=== PATIENT | male | born 1960 | race Caucasian/White ===

== ENCOUNTER → 2020-01-29 09:21 | Outpatient (BNVA) | payer MEDICAID, SELFPAY | PROVIDERS: PCP Internal Medicine; Referring Provider Internal Medicine; Visit Provider Urology | DX: Z76.89 Persons encountering health services in other specified circumstances (principal) | CPT/HCPCS: 99212 ==

== ENCOUNTER → 2020-04-08 13:15 | Outpatient (BNVA) | payer MEDICAID, SELFPAY | PROVIDERS: PCP Internal Medicine; Visit Provider Nurse Practitioner Family ==

== ENCOUNTER 2020-05-24 09:06 | Day surgery (SDC) | payer MEDICAID, SELFPAY ==
[2020-05-19 09:14] VITALS: BMI 28.2
[2020-05-24 09:31] VITALS: BP 107/61; PULSE 56; RESP 18; TEMP 36.6; O2SAT 97
--- NOTE | 2020-05-24 09:34 | P.CONAN_ITS ---
[facility] Active Problems Active Problems: All Active Problems (Updated 05/19/20 @ 09:12 by Fany mcintosh) Prostate cancer (Acute) BPH w urinary obs/LUTS (Acute) Erectile dysfunction due to arterial insufficiency (Acute) Past Medical History Medical History BPH (benign prostatic hyperplasia) Elevated cholesterol Erectile dysfunction Family History Family History Mother Advancing dementia Social History Social History Household Members: Spouse Alcohol intake: current Alcohol intake frequency: a few times a month Alcohol type: beer Smoking Status: Never smoker Use of substances other than those prescribed or required for medical reasons: No Advance Directives: No Advance Directives Information Provided: No Advance Directives on File: No Meds Allergies Allergy/AdvReac Type Severity Reaction Status Date / Time No Known Allergies Allergy Verified 05/19/20 09:13 [No Known Allergies*] Active Medications: Current Medications Generic Name Dose Route Start Last Admin Trade Name Kaliq PRN Reason Stop Dose Admin Lactated Ringer's 1,000 mls @ 50 mls/hr 05/24/20 07:30 Lr IV .Q20H [facility] Home Medications Medication Instructions Recorded Confirmed Last Taken Type simvastatin 40 mg tablet 40 mg PO BEDTIME 04/08/20 05/19/20 Unknown History tadalafil 5 mg PO DAILY PRN 05/19/20 05/19/20 Unknown History Exam Exam Date and Time: May 24, 2020 0934 Height,Weight and Vital Signs: Height 5 ft 6 in Weight 79.379 kg Airway Mallampati Class: II TM Dist: >3cm Neck ROM: Full Loose/Missing/Broken Teeth: No Heart: RRR Lungs: CTA Assessment and Plan Assessment Anesthesia Assessment: Anesthesia Plan Discussed and Chart Reviewed Final Anesthetic Review NPO: Yes ASA Class: II Final Preanesthetic Review: Meds/Allgs Chart Reviewed, Consent Obtained/Reviewed and Anes Risks/Benef Reviewed Patient Risk: Low Procedure Risk: Low Anesthetic Plan Anesthetic Plan: MAC: Disposition: Standard PACU
--- NOTE | 2020-05-24 09:35 | MHC.SHP ---
Pre-Procedural Eval Section B Chief Complaint: Screening Relevant Family History (Specify if Yes): No Relevant Social History: None Present Medications: see Short Stay Collaborative assessment Medical History: Significant History (prostate cancer) History of Previous Operations: Relevant previous surgery/procedure and date(s) (prostate surgery) Allergies: Allergies Allergy/AdvReac Type Severity Reaction Status Date / Time No Known Allergies Allergy Verified 05/19/20 09:13 [No Known Allergies*] Review of Systems Sugical H&P ROS: Negative: Constitution, Cardiovascular, Respiratory, Neurological, Psychiatric, Hem-Onc, Allergic/Immunologic, Gastrointestinal, Genitourinary, Musculoskeletal, Integumentary, Endocrine and Eyes/Ears/Nose/Throat Exam Surgical H&P Exam: Normal: HEENT, Normal: Heart, Normal: Lungs, Normal: Extremities, Normal: Abdomen and Normal: Neurological and Significant Findings: Skin (vitiligo) Plan Diagnosis/Plan: Unchanged I have reviewed the history and physical and performed a pertinent physical examination on my patient. No changes have occurred unless specified.
--- NOTE | 2020-05-24 09:37 | PM.OP ---
Brief Operative Note Date of Service: 05/24/20 Pre-op diagnosis: colon screening Post-op diagnosis: same Procedure: see op note Surgeon: Micaela Catherine MD Anesthesia: MAC Estimated blood loss (mL): 0 Condition: stable Disposition: PACU
--- NOTE | 2020-05-24 09:38 | P.OP_ITS ---
Operative Note Operative Note Date of Service: 05/24/20 Narrative: Operative Information Procedure Description: Colonoscopy COLONOSCOPY Instrument: Olympus variable stiffness pediatric scope 190L Colonoscopy Monitoring: Vital signs and clinical assessment, continuous EKG monitoring, Pulse oximetry, Carbon Dioxide monitoring and blood pressure monitoring were done throughout the procedure. Colon withdrawal time was 9 minutes. Procedure: The patient was placed in the left lateral decubitis position and pre-procedure medications were administered. After a digital rectal examination of the ano-rectum, the video colonoscope was inserted into the rectum and advanced through the colon to the cecum/TI. The colonoscope was slowly withdrawn in a retrograde panoramic fashion and the colon mucosa was carefully examined including a retroflexed view of the rectum. Findings and interventions are described below. Procedure Difficulty:easy Findings: Terminal Ileum-normal Cecum:normal Ascending Colon: normal Transverse Colon -normal Descending Colon:normal Sigmoid Colon: normal Rectum: Retroflexion with moderate sized internal hemorrhoids, grade I Anorectum - normal Colon preparation: Blevins Bowel Preparation Scale Right colon; 1 Transverse colon: 2 Left colon; 1 (0 = Unprepared colon segment with mucosa not seen due to solid stool that cannot be cleared. 1 = Portion of mucosa of the colon segment seen, but other areas of the colon segment not well seen due to staining, residual stool and/or opaque liquid. 2 = Minor amount of residual staining, small fragments of stool and/or opaque liquid, but mucosa of colon segment seen well. 3 = Entire mucosa of colon segment seen well with no residual staining, small fragments of stool or opaque liquid) Impression and Post Procedure Diagnosis: internal hemorrhoids Plan: High fiber diet leaflet Avoid straining at stool, epsom salts and sitz bath, anusol supps or cream Repeat Colonoscopy in 1-2 years due to prep or earlier if clinically indicated- next time stress compliance with prep and diet instructions Above findings were reviewed with the patient and relevant handouts were provided if indicated.
[2020-05-24] MEDS: Lactated Ringers 1,000 ML 50 ML IV (09:41)
[2020-05-24 10:13] VITALS: BP 98/60; PULSE 67; RESP 16; TEMP 36.1; O2SAT 96
[2020-05-24 10:28] VITALS: BP 108/74; PULSE 60; RESP 18; O2SAT 98
[2020-05-24 10:43] VITALS: BP 111/76; PULSE 67; RESP 18; TEMP 36.1; O2SAT 100
== END 2020-05-24 11:32 | disposition home or self-care (01) ==
PROVIDERS: Visit Provider Internal Medicine Gastroenterology
PROC: 0DJD8ZZ Inspection of Lower Intestinal Tract, Via Natural or Artificial Opening Endoscopic (ICD-10-PCS; CPT 45378; principal; 2020-05-24 10:50)
DX: Z12.11 Encounter for screening for malignant neoplasm of colon (principal); K64.0 First degree hemorrhoids; C61 Malignant neoplasm of prostate; Z79.899 Other long term (current) drug therapy
CPT/HCPCS: 45378

== ENCOUNTER → 2020-05-31 14:42 | Outpatient (BNVA) | payer MEDICAID, SELFPAY | PROVIDERS: Visit Provider Nurse Practitioner Family ==

== ENCOUNTER 2020-06-21 07:45 | Outpatient (REF) | payer MEDICAID, SELFPAY | END 2020-06-21 07:46 | disposition home or self-care (01) | LOC: HO.LAB 07:45 | PROVIDERS: Visit Provider Internal Medicine | DX: Z20.822 Contact with and (suspected) exposure to COVID-19 (principal) | CPT/HCPCS: C9803; U0003; U0005 ==

== ENCOUNTER 2020-07-27 08:56 | Outpatient (REF) | payer MEDICAID, SELFPAY ==
[2020-07-27 10:15] LABS: Prostate Specific Antigen 9.94 ng/mL (<0.05-4.0)
== END 2020-07-27 08:57 | disposition home or self-care (01) ==
LOC: HO.LAB 08:56
PROVIDERS: PCP Nurse Practitioner Primary Care; Visit Provider Urology
DX: Z12.5 Encounter for screening for malignant neoplasm of prostate (principal); C61 Malignant neoplasm of prostate
CPT/HCPCS: 36415; 84153

== ENCOUNTER → 2020-07-29 11:31 | Outpatient (BNVA) | payer MEDICAID, SELFPAY | PROVIDERS: Visit Provider Urology | DX: C61 Malignant neoplasm of prostate (principal); N52.01 Erectile dysfunction due to arterial insufficiency; N40.1 Benign prostatic hyperplasia with lower urinary tract symptoms; N13.8 Other obstructive and reflux uropathy | CPT/HCPCS: 99212 ==

== ENCOUNTER 2021-03-09 14:21 | Outpatient (REF) | payer MEDICAID, SELFPAY ==
[2021-03-09 15:42] LABS: COVID-19 Test Negative (Negative)
== END 2021-03-09 14:22 | disposition home or self-care (01) ==
LOC: HO.LAB 14:21
PROVIDERS: Visit Provider Internal Medicine
DX: Z20.822 Contact with and (suspected) exposure to COVID-19 (principal)
CPT/HCPCS: 87635; C9803

== ENCOUNTER 2021-03-17 10:10 | Outpatient (REF) | payer MEDICAID, SELFPAY ==
[2021-03-17 10:24] LABS: COVID-19 Test Positive (Negative); IDNOW Serial# 16C4AD1C
== END 2021-03-17 10:11 | disposition home or self-care (01) ==
LOC: HO.LAB 10:10
PROVIDERS: Visit Provider Internal Medicine
DX: Z20.822 Contact with and (suspected) exposure to COVID-19 (principal)
CPT/HCPCS: 87635; C9803

== ENCOUNTER 2021-05-02 16:40 | Outpatient (RCR) | payer MEDICAID, SELFPAY | END 2021-05-17 12:50 | disposition home or self-care (01) | LOC: HO.PT 16:40 | PROVIDERS: PCP Nurse Practitioner Primary Care; Visit Provider Nurse Practitioner Primary Care | DX: M25.511 Pain in right shoulder (principal); M79.605 Pain in left leg; M79.604 Pain in right leg | CPT/HCPCS: 97110; 97161 ==

== ENCOUNTER 2022-07-20 12:19 | Outpatient (REF) | payer MEDICAID, SELFPAY | END 2022-07-20 12:20 | disposition home or self-care (01) | LOC: HO.HOSX 12:19 | PROVIDERS: Visit Provider Orthopaedic Surgery | DX: Z13.89 Encounter for screening for other disorder (principal) ==

== ENCOUNTER 2022-07-27 12:18 | Outpatient (REF) | payer MEDICAID, SELFPAY | END 2022-07-27 12:19 | disposition home or self-care (01) | LOC: HO.HOSX 12:18 | PROVIDERS: Visit Provider Orthopaedic Surgery | DX: Z13.89 Encounter for screening for other disorder (principal) ==

== ENCOUNTER → 2023-02-13 15:50 | Outpatient (AMB) | payer MEDICAID, SELFPAY ==
--- NOTE | 2023-02-13 15:57 | MHC.OFFVIS ---
Intake Vital Signs 02/13/23 15:59 Height 5 ft 6 in Weight 166 lb BMI 26.8 BP 117/71 Blood Pressure Location Lt brachial Position Sitting Pulse 79 Intake Visit Reasons: 1 year follow up Colonoscopy Intake Note: Patient follow up for Pre Colonoscopy screening. Patient cc: hemorrhoids on and off. Denies any other GI issues. [employer] Supervisor Required: No Accompanied by: Self / Same As Patient Allergies No Known Allergies [No Known Allergies*] Allergy (Verified 02/21/23 15:49) HPI 1 year follow up Colonoscopy HPI Details LAST VISIT 05/31/2020 Status post colonoscopy Plan 60-year-old male here today for visit to discuss colonoscopy results. Patient states that he did not finish his prep. He only drank some of the MiraLax. Patient denies having any nausea or any problem with it. ? if he started drinking it too late. Patient denies having any symptoms of constipation, reports to have bowel movements every day and feels like he is emptying fully. I explained to patient that it is very important to have a good prep in order to have a good view of intestinal [place]. Patient is agreeable to repeat colonoscopy in one year. Patient denies any melena, blood in his stools, and additional weight loss or ribbon like stools. He was asked to call our office with any of the symptoms. He verbalizes understanding and is agreeable to plan of care. Patient reports that he does eat a lot of fiber, he stays active and drinks plenty fluids. He was given the opportunity to ask questions all questions answered. (we will do 2 day prep for him) ? TODAY'S VISIT Patient is here today for follow-up and to discuss going for colonoscopy. Patient is overdue to go for colonoscopy. Last colonoscopy in May as mentioned above patient had suboptimal prep. Patient did not finish all of his prep only drink very small amount. Patient reports that he is moving his bowels every day. Denies any melena, hematochezia, unintentional weight loss or ribbon like stools. Denies any issues with anesthesia in the past. No history of sleep apnea. Not on any anticoagulation medication. Patient denies any cardiac or respiratory symptoms. Patient denies any other GI concerning symptoms. Denies dyspepsia, dysphagia or odynophagia. [facility] Medical History Elevated cholesterol Erectile dysfunction BPH (benign prostatic hyperplasia) Surgical History H/O colonoscopy Family History Mother Advancing dementia Social History (Updated 02/21/23 @ 15:50 by LEONID Vásquez) Household Members: Spouse Alcohol intake: current Alcohol intake frequency: a few times a month Alcohol type: beer Patient Tobacco Use Status: Never used Tobacco Review of Systems Const Denies weight gain and Denies weight loss ENT Reports no additional complaints, Denies dysphagia and Denies odynophagia Card Reports no additional complaints Resp Reports no additional complaints GI Denies abdominal pain, Denies belching, Denies melena, Denies bloating, Denies change in bowel habits, Reports constipation, Denies dysphagia, Denies excessive flatus, Denies dyspepsia, Denies heartburn, Denies diarrhea, Denies loose stools, Denies nausea, Denies odynophagia, Denies vomiting and Reports other (Hemorrhoids) Reports no additional complaints Musc Reports no additional complaints Neuro Reports no additional complaints Psych Reports no additional complaints Endo Reports no additional complaints Physical Exam Vital Signs: Last Vital Signs Pulse 79 02/13/23 15:59 BP 117/71 02/13/23 15:59 BMI result Body Mass Index 26.8 Const General: healthy appearing, no acute distress and well developed Nutritional Appearance: well nourished Orientation/consciousness: patient oriented x3 HEENT Head: Yes normal to inspection, Yes normocephalic and Yes atraumatic Face and sinus: Yes normal facial exam Mouth: Normal oral and palatal mucosa present Throat: Yes posterior oropharynx normal, Yes tonsils normal and Yes uvula midline Eyes General: appearance normal, both eyes and all related structures Neck Neck: Yes normal visual inspection, Yes full ROM and Yes trachea midline Thyroid: Thyroid normal Resp Effort & Inspection: normal respiratory effort, able to speak in complete sentences, no tracheal deviation and symmetric chest movement Auscultation: clear to auscultation bilaterally Cardio Rate: regular rate GI Inspection: Yes normal to inspection and No distended Palpation (GI): Soft to palpation, not firm, nontender and No hepatosplenomegaly present Auscultation: normal bowel sounds General: Yes no CVA tenderness Back/Spine/Pelvis Back: no CVA tenderness Skin General skin exam: elasticity normal, turgor normal and dry skin Neuro General: patient oriented x3 Psych Appearance: grossly normal Mental Status: mental status grossly normal Assessment & Plan Assessment & Plan (1) Screen for colon cancer: Code(s): Z12.11 - Encounter for screening for malignant neoplasm of colon (2) Constipation: Code(s): K59.00 - Constipation, unspecified Qualifiers: Constipation type: slow transit constipation Qualified Code(s): K59.01 - Slow transit constipation Plan Will start patient on stool softener. Patient was that sometimes he will have constipation. Patient denies any issues with anesthesia in the past. No history of sleep apnea. Not on any anticoagulation medication. Patient denies any cardiac or respiratory symptoms. Patient will need to do better job prepping and finish all of his prep. The importance of clear liquid diet day before the procedure discussed with patient. Avoid foods high in fiber for 1 week before the procedure. With to expect before during and after the procedure discussed with patient. I will see patient in the office after the procedure, sooner on as needed basis. Patient is agreeable to this plan and verbalizes understanding of instructions. He was given the opportunity to ask questions and all questions answered. Thank you for allowing me to participate in his care Medications: New polyethylene glycol 3350 (Miralax) As directed by gastroenterology department at [facility] 238 grams PO ONCE 238 grams 0RF Z12.11 - Encounter for screening for malignant neoplasm of colon bisacodyl (Dulcolax (bisacodyl)) Start taking 2 tablet every night 7 days before the procedure and 1 day before procedure take 4 tablets at noon time followed by MiraLax prep 10 mg (2 x 5 mg) PO BEDTIME 16 tabs 0RF Z12.11 - Encounter for screening for malignant neoplasm of colon docusate sodium 100 mg PO BEDTIME 90 caps 3RF K59.00 - Constipation, unspecified Discontinued bisacodyl take 2 tabs at noon the day before your colonoscopy Discontinued Reason: Patient no longer taking 10 mg (2 x 5 mg) PO ONCE 1 day 2 tabs 0RF Z12.11 - Encounter for screening for malignant neoplasm of colon Coding Level of Care Code Est Pt Level 3 (75065) Diagnoses Screen for colon cancer Z12.11 Slow transit constipation K59.01 Constipation type: slow transit constipation Time Spent (min) 30 Comment 20 minutes spent with patient and additional 10 minutes spent reviewing his records
[2023-02-13 15:59] VITALS: BP 117/71; PULSE 79; BMI 26.8
== END ==
PROVIDERS: PCP Nurse Practitioner Primary Care; Visit Provider Nurse Practitioner Family
DX: Z12.11 Encounter for screening for malignant neoplasm of colon (principal); K59.01 Slow transit constipation; Z01.818 Encounter for other preprocedural examination
CPT/HCPCS: 99213

== ENCOUNTER → 2023-02-13 15:50 | Outpatient (BNVA) | payer MEDICAID, SELFPAY | PROVIDERS: PCP Nurse Practitioner Primary Care; Visit Provider Nurse Practitioner Family | DX: Z12.11 Encounter for screening for malignant neoplasm of colon (principal); K59.01 Slow transit constipation | CPT/HCPCS: 99212 ==

== ENCOUNTER 2023-02-21 15:24 | Outpatient (AMB) | payer MEDICAID, SELFPAY ==
--- NOTE | 2023-02-21 15:48 | A.OFFVIS_ITS ---
Intake Intake Visit Reasons: prostate cancer C61 Intake Note: NEW Patient presents today to established treatment for Prostate Cancer: Meds- None Allergies to Antibiotic- No Known Allergies Blood Thinner- None Post Void Residual: 55 m Removable Prosthodontist Required: No Accompanied by: Self / Same As Patient Allergies No Known Allergies [No Known Allergies*] Allergy (Verified 02/21/23 15:49) HPI HPI Comments History of Present Illness Details James is here for evaluation for elevated PSA, he was last seen by Dr. Dunham in 2020 and was placed on active surveillance for low volume prostate cancer. The patient states he has not followed up with a Urologist since that time. He had been prescribed proscar and tadalfil, in the past by Dr. Dunham currently no longer taking. Review of chart: Erectile dysfunction Did have some response to tadalafil. Lower urinary tract symptoms Has narrowing of stream Nocturia times 2-3 Will benefit from combination tamsulosin and finasteride Tamsulosin added to finasteride prescription Prostate cancer PSA-- 05/15 --7.1, PSA --08/16 --9.9 Adenocarcinoma of the prostate (T1c N0 M0, Traci score 7, Grade Group 2 , PS A at Diagnosis) NCCN favorable intermediate Prostate cancer was diagnosed Dr Dunham May 2019 Diagnosis was reached by - needle biopsy - , for elevated PSA 7.6 - , size at TRUS. The [place] grade is 3+4 Date: May 2019 12 Core biopsy Positive Biopsies: 4 - 3+4 right base lateral, 3+3 right base medial, right mid medial, right apex medial Negative Biopsies: Traci 4 or 5: < 5% total (%) Positive: 10% total Locations: TNM Classification of Malignant Tumours (TNM) - , T1c The D'[place]irk (NCCN) risk category is - - Favorable Intermediate Risk (PSA 10-20, Gl 7, T2) Group 2 Initial therapy included - active surveillance 02/21/23--Plan: Repeat prostate biopsy. Transrectal Ultrasound guided biopsy of the prostate. Discussed risks to include but not limited to pain, blood in stool, urine and semen, septicemia, need to repeat biopsy. [facility] Medical History (Updated 03/13/23 @ 12:19 by Alyse Starks MD) Elevated cholesterol Erectile dysfunction BPH (benign prostatic hyperplasia) Surgical History H/O knee surgery H/O colonoscopy Family History Mother Advancing dementia Social History Household Members: Spouse Alcohol intake: current Alcohol intake frequency: holidays/special occasions only Alcohol type: beer Patient Tobacco Use Status: Never used Tobacco Use of substances other than those prescribed or required for medical reasons: No Are you DNR?: No Advance Directives: No Advance Directives Information Provided: Yes Review of Systems Const All systems reviewed & are unremarkable except as noted in HPI and below Reports no additional complaints Eyes Reports no additional complaints ENT Denies neck pain Card Denies leg edema Resp Denies cough GI Denies constipation Musc Reports no additional complaints and Denies neck pain Skin/Breast Denies rash and Denies unusual bruising Neuro Reports no additional complaints Psych Reports no additional complaints Endo Reports no additional complaints Joseph/Lymph Reports no additional complaints Aller/Immun Reports no additional complaints Physical Exam Const General: healthy appearing, no acute distress and well developed Orientation/consciousness: patient oriented x3 HEENT Head: Yes normocephalic and Yes atraumatic Eyes Conjunctivae: conjunctivae normal Neck Neck: Yes normal visual inspection Chest Chest palpation & inspection: normal inspection of the chest Resp Effort & Inspection: normal respiratory effort Cardio Rate: regular rate GI Inspection: Yes normal to inspection Palpation (GI): Soft to palpation Other: prostate - smooth enlarged Skin General skin exam: no rashes or lesions noted Neuro General: patient oriented x3 Extrem General: No pedal edema Psych Appearance: grossly normal Affect: normal affect Results AMB Urinalysis, Automated UA Leukoctes 0 Barbara/uL Last Edit by LEONID Vásquez on 02/21/23 16:00 UA Nitrite Negative Last Edit by LEONID Vásquez on 02/21/23 16:00 UA Urobilinogen 0.2 mg/dL Last Edit by LEONID Vásquez on 02/21/23 16:0 0 UA Protein 0 mg/dL Last Edit by VISHAL VásquezA on 02/21/23 16:00 UA pH 6.0 Last Edit by Edmond Ghosh, A on 02/21/23 16:00 UA Blood 0 Missael/uL Last Edit by Edmond Ghosh, A on 02/21/23 16:00 UA Specific Koppel 1.020 Last Edit by Edmond Ghosh, A on 02/21/23 16: 00 UA Ketone Negative Last Edit by Edmond Ghosh, A on 02/21/23 16:00 UA Bilirubin 0 mg/dL Last Edit by Edmond Ghosh A on 02/21/23 16:00 UA Glucose 0 mg/dL Last Edit by Edmond Ghosh A on 02/21/23 16:00 Results Reviewed Results Reviewed: Laboratory Last Values Urine pH (Auto) 6.0 02/21/23 15:59 Specific Koppel (Auto) 1.020 02/21/23 15:59 Urine Protein (Auto) 0 mg/dL 02/21/23 15:59 Glucose (UA)(Auto) 0 mg/dL 02/21/23 15:59 Urine Ketones (Auto) Negative 02/21/23 15:59 Urine Blood (Auto) 0 Missael/uL 02/21/23 15:59 Urine Nitrite (Auto) Negative 02/21/23 15:59 Urine Bilirubin (Auto) 0 mg/dL 02/21/23 15:59 Urine Urobilinogen (Auto) 0.2 mg/dL 02/21/23 15:59 Leukocyte Esterase (Auto) 0 Barbara/uL 02/21/23 15:59 Assessment & Plan Assessment & Plan (1) Prostate cancer: Code(s): C61 - Malignant neoplasm of prostate (2) BPH w urinary obs/LUTS: Code(s): N40.1 - Benign prostatic hyperplasia with lower urinary tract symptoms; N13.8 - Other obstructive and reflux uropathy (3) Elevated PSA: Code(s): R97.20 - Elevated prostate specific antigen [PSA] Plan Plan - prostate biopsy, transrectal US Orders: Orders AMB Urinalysis Automated 02/21/23 Z13.9 - Encounter for screening, unspecified AMB Post Void Residual by ultrasound 02/21/23 N39.8 - Other specified disorders of urinary system Coding Level of Care Code New Pt Level 4 (81939) Diagnoses Prostate cancer C61 BPH w urinary obs/LUTS N40.1; N13.8 Elevated PSA R97.20
== END 2023-02-21 16:23 | disposition home or self-care (01) ==
LOC: HO.HUSH 15:24
PROVIDERS: PCP Nurse Practitioner Primary Care; Visit Provider Urology
DX: C61 Malignant neoplasm of prostate (principal); N40.1 Benign prostatic hyperplasia with lower urinary tract symptoms; N13.8 Other obstructive and reflux uropathy; R97.20 Elevated prostate specific antigen [PSA]
CPT/HCPCS: 99204

== ENCOUNTER → 2023-02-21 15:24 | Outpatient (BNVA) | payer MEDICAID, SELFPAY | PROVIDERS: PCP Nurse Practitioner Primary Care; Visit Provider Urology | DX: C61 Malignant neoplasm of prostate (principal); N40.1 Benign prostatic hyperplasia with lower urinary tract symptoms; N13.8 Other obstructive and reflux uropathy; R97.20 Elevated prostate specific antigen [PSA] | CPT/HCPCS: 81003; 99202 ==

== ENCOUNTER 2023-03-13 08:28 | Day surgery (SDC) | payer MEDICAID, SELFPAY ==
[2023-03-09 10:54] VITALS: BMI 28.1
[2023-03-13 09:55] VITALS: BMI 27.5
[2023-03-13 10:00] VITALS: BP 118/68; PULSE 55; RESP 16; TEMP 36.4; O2SAT 99
[2023-03-13] MEDS: Lactated Ringers 1,000 ML 100 ML IVCONT (11:17)
--- NOTE | 2023-03-13 12:15 | HO.ANESPROP2 ---
HPI - Anesthesia Eval Consult details Narrative: for prostrate biopsy PMFSH Active Problems Active Problems: All Active Problems (Updated 05/19/20 @ 09:12 by Fany Walker RN) Erectile dysfunction due to arterial insufficiency (Acute) BPH w urinary obs/LUTS (Acute) Prostate cancer (Acute) Past Medical History Medical History Elevated cholesterol Erectile dysfunction BPH (benign prostatic hyperplasia) Family History Family History Mother Advancing dementia Family history of problems with anesthesia: No Surgical History Surgical History H/O knee surgery H/O colonoscopy History of Problems with Anesthesia: No Social History Social History Household Members: Spouse Alcohol intake: current Alcohol intake frequency: holidays/special occasions only Alcohol type: beer Patient Tobacco Use Status: Never used Tobacco Use of substances other than those prescribed or required for medical reasons: No Are you DNR?: No Advance Directives: No Advance Directives Information Provided: Yes Meds Allergies Allergy/AdvReac Type Severity Reaction Status Date / Time No Known Allergies Allergy Verified 02/21/23 15:49 [No Known Allergies*] Active Medications: Current Medications Fentanyl (Fentanyl Citrate/Pf 100 Mcg/2 Ml Vial) 25 mcg IVPUSH Q5M PRN; Protocol PRN Reason: Pain, Moderate(Pain Scale 4-6) Lactated Ringer's (Lr) 1,000 mls @ 100 mls/hr IVCONT .Q10H [place] Last Admin: 03/13/23 11:17 Dose: 100 mls/hr Ondansetron HCl (Ondansetron Hcl 4 Mg/2 Ml Vial) 4 mg IVPUSH ONCE PRN PRN Reason: Nausea and Vomiting Home Medications Medication Instructions Recorded Confirmed Last Taken Type omeprazole 20 mg capsule,delayed 20 mg PO QAM 03/13/23 03/13/23 03/12/23 06:00 History release Exam Height,Weight and Vital Signs: Height 5 ft 6 in Weight 77.292 kg Last Vital Signs Temp 97.6 F 03/13/23 10:00 Pulse 55 03/13/23 10:00 Resp 16 03/13/23 10:00 BP 118/68 03/13/23 10:00 Pulse Ox 99 03/13/23 10:00 O2 Del Method Room Air 03/13/23 10:00 Airway Mallampati Class: II TM Dist: >3cm Neck ROM: Limited Heart: rrr Lungs: cta Assessment and Plan Assessment Anesthesia Assessment: Anesthesia Plan Discussed and Chart Reviewed Final Anesthetic Review Family History of Problems with Anesthesia: No History of Problems with Anesthesia: No ASA Class: II Final Preanesthetic Review: No Changes in Pt Med Stat, Meds/Allgs Chart Reviewed, Consent Obtained/Reviewed and Anes Risks/Benef Reviewed Patient Risk: Low Procedure Risk: Low Anesthetic Plan Anesthetic Plan: MAC: Disposition: Standard PACU
[2023-03-13 13:27] VITALS: BP 137/50; PULSE 82; RESP 9; TEMP 36.4; O2SAT 99
--- NOTE | 2023-03-13 13:40 | W.PM.OPN ---
Operative Note Operative Note Date of Service: 03/13/23 Narrative: PreOperative Diagnosis:? ? prostate cancer Post Operative Diagnosis:??prostate cancer Procedure:?1. Transrectal ultrasound guided biopsy of the prostate 12 core 2. Transrectal ultrasound measurement of prostate 3. Transrectal ultrasound guided pudendal nerve block Surgeon:?Dr Alyse Starks Anesthesia:? MAC Indications for procedure: The patient was diagnosed with prostate cancer in July 2020 and was on active surveillance and did not return for scheduled follow up. He is here for prostate biopsy. Procedure: Preoperative antibiotics confirmed. After informed consent was verified the patient was placed on the procedure table in left lateral position. Patient identity confirmed. Safety pause time-out performed. Digital rectal exam performed to dilate rectal sphincter, iodine mixed with lubricant jelly 30 cc placed per rectum. Ultrasound probe was placed per rectum. The prostate was visualized. The prostate was measured width 4.71 cm, height 2.51 cm, length 3.99 cm with a volume of 24.7 mL. An ultrasound guided pudendal nerve block was performed using 10 cc of 1% lidocaine. A 12 core biopsy was performed from the left base, left mid, left apex and right base, mid, apex 2 biopsies from each section. The ultrasound probe was removed and digital palpation of the prostate for 1-2 minutes for hemostasis was performed. The patient tolerated the procedure well. Complications: None
[2023-03-13 13:41] VITALS: BP 120/73; PULSE 82; RESP 12; TEMP 36.6; O2SAT 97
== END 2023-03-13 14:23 | disposition home or self-care (01) ==
PROVIDERS: PCP Nurse Practitioner Primary Care; Visit Provider Urology
PROC: (CPT 55700; principal; 2023-03-13 10:50)
DX: C61 Malignant neoplasm of prostate (principal); N40.0 Benign prostatic hyperplasia without lower urinary tract symptoms; N52.9 Male erectile dysfunction, unspecified; E78.00 Pure hypercholesterolemia, unspecified
CPT/HCPCS: 55700; 76942; 88305; J1956; J2704

== ENCOUNTER → 2023-03-13 08:28 | Outpatient (BNV) | payer MEDICAID, SELFPAY | PROVIDERS: PCP Nurse Practitioner Primary Care; Visit Provider Urology | DX: C61 Malignant neoplasm of prostate (principal) | CPT/HCPCS: 55700; 76942 ==

== ENCOUNTER → 2023-03-22 11:18 | Outpatient (BNVA) | payer MEDICAID, SELFPAY | PROVIDERS: PCP Nurse Practitioner Primary Care; Visit Provider Urology | DX: N40.1 Benign prostatic hyperplasia with lower urinary tract symptoms (principal); N13.8 Other obstructive and reflux uropathy; C61 Malignant neoplasm of prostate; R97.20 Elevated prostate specific antigen [PSA] | CPT/HCPCS: 99212 ==

== ENCOUNTER 2023-03-22 14:56 | Outpatient (AMB) | payer MEDICAID, SELFPAY ==
--- NOTE | 2023-03-22 15:16 | A.OFFVIS_ITS ---
Intake Intake Visit Reasons: Prostate bx results (set) Intake Note: Patient presents today for Prostate Biopsy Results: Meds- None Allergies to Antibiotic- No Known Allergies Blood Thinner- None Check Out Cashier Required: No Accompanied by: Self / Same As Patient Allergies No Known Allergies [No Known Allergies*] Allergy (Verified 03/22/23 15:17) HPI HPI Comments History of Present Illness Details James is here for evaluation for elevated PSA, he was last seen by Dr. Dunham in 2020 and was placed on active surveillance for low volume prostate cancer. The patient states he has not followed up with a Urologist since that time. He had been prescribed proscar and tadalfil, in the past. He did not get the repeat PSA -- PSA was 9.94 on 07/27/20 03/22/23-- s/p repeat Prostate biopsy on 03/13/23- results detailed below in the results section: Group 1 and group 2 - involving both the right and left sides of the prostate. I want him to have 2nd opinion with Dr. Alfaro to evaluate regarding surgery. Review of chart: Erectile dysfunction Did have some response to tadalafil. Lower urinary tract symptoms Has narrowing of stream Nocturia times 2-3 Will benefit from combination tamsulosin and finasteride Tamsulosin added to finasteride prescription Prostate cancer PSA-- 05/15 --7.1, PSA --08/16 --9.9 Adenocarcinoma of the prostate (T1c N0 M0, Traci score 7, Grade Group 2 , PSA at Diagnosis) NCCN favorable intermediate Prostate cancer was diagnosed Dr Dunham May 2019 Diagnosis was reached by - needle biopsy - , for elevated PSA 7.6 - , size at TRUS. The Troy grade is 3+4 Date: May 2019 12 Core biopsy Positive Biopsies: 4 - 3+4 right base lateral, 3+3 right base medial, right mid medial, right apex medial Negative Biopsies: Traci 4 or 5: < 5% total (%) Positive: 10% total Locations: TNM Classification of Malignant Tumours (TNM) - , T1c The D'Kirk (NCCN) risk category is - - Favorable Intermediate Risk (PSA 10-20, Gl 7, T2) Group 2 Initial therapy included - active surveillance 03/22/23--Plan: Refer to Dr. Alfaro [facility] Medical History Elevated cholesterol Erectile dysfunction BPH (benign prostatic hyperplasia) Surgical History Hx of prostate biopsy H/O knee surgery H/O colonoscopy Family History Mother Advancing dementia Social History Household Members: Spouse Alcohol intake: current Alcohol intake frequency: holidays/special occasions only Alcohol type: beer Patient Tobacco Use Status: Never used Tobacco Review of Systems Const All systems reviewed & are unremarkable except as noted in HPI and below Reports no additional complaints Eyes Reports no additional complaints ENT Denies neck pain Card Denies leg edema Resp Denies cough GI Denies constipation Musc Reports no additional complaints and Denies neck pain Skin/Breast Denies rash and Denies unusual bruising Neuro Reports no additional complaints Psych Reports no additional complaints Endo Reports no additional complaints Joseph/Lymph Reports no additional complaints Aller/Immun Reports no additional complaints Results Reviewed Results Reviewed: Collected: 03/13/23 Location: [facility] Received: 03/13/23 Diagnosis Prostate needle biopsies: A: Left base lateral: Benign prostatic tissue; negative for carcinoma. B: Left base medial: Prostatic adenocarcinoma, Troy score 3+3=6 (grade group 1) involving 20% of the tissue. C: Left mid lateral: Prostatic adenocarcinoma, Troy score 3+4=7 (grade group 2) involving 20% of the tissue. D: Left mid medial: Prostatic adenocarcinoma, Traci score 3+3=6 (grade group 1) involving 15% of the tissue. E: Left apex lateral: Prostatic adenocarcinoma, too small to grade, involving less than 5% of the tissue. F: Left apex medial: Benign prostatic tissue; negative for carcinoma. G: Right base lateral: Prostatic adenocarcinoma, Traci score 3+4=7 (grade group 2) involving 90% of the tissue. H: Right base medial: Prostatic adenocarcinoma, Traci score 3+3=6 (grade group 1) involving 70% of the tissue. I: Right mid lateral: Benign prostatic tissue; negative for carcinoma. J: Right mid medial: Benign prostatic tissue; negative for carcinoma. K: Right apex lateral: Benign prostatic tissue; negative for carcinoma. L: Right apex medial: Benign prostatic tissue; negative for carcinoma. Data synopsis - Prostate needle biopsy Histologic type: Adenocarcinoma, acinar type Histologic grade: Traci score: 3+4=7 (left mid lateral, right base lateral) 3+3=6 (left base medial, left mid medial, right base medial) Too small to grade (left apex lateral) Assessment & Plan Assessment & Plan (1) Prostate cancer: Code(s): C61 - Malignant neoplasm of prostate (2) BPH w urinary obs/LUTS: Code(s): N40.1 - Benign prostatic hyperplasia with lower urinary tract symptoms; N13.8 - Other obstructive and reflux uropathy (3) Elevated PSA: Code(s): R97.20 - Elevated prostate specific antigen [PSA] Plan Referral to Dr. Alfaro Orders: Orders PSA,Total (Free>4and<10) 03/26/23 C61 - Malignant neoplasm of prostate, N40.1 - Benign prostatic hyperplasia with lower urinary tract symptoms, N13.8 - Other obstructive and reflux uropathy, R97.20 - Elevated prostate specific antigen [PSA] Referrals Urology Referral C61 - Malignant neoplasm of prostate Patient Instructions: The patient had an opportunity to ask questions regarding treatment plan. All questions were answered. Laboratory studies and physical exam results were discussed and reviewed in detail. No major barriers to understanding were identified. The patient expressed understanding and agreement with the above vinny atment plan. The patient is aware they should contact our office by phone for worsening of their current condition or the appearance of new symptoms. Compliance is encouraged with any medications and followup testing that is ordered. It is a privilege to be allowed the opportunity to participate in the urologic care of your patient. If you have any questions or concerns regarding treatment for the above conditions please do not hesitate to contact me. The office telephone contact is [phone]. This note is constructed in part using voice recognition software. While every effort has been made to ensure accuracy rn homecare errors may have been included. Yours sincerely, Alyse Starks MD Coding Level of Care Code Est Pt Level 4 (26298) Diagnoses Prostate cancer C61 BPH w urinary obs/LUTS N40.1; N13.8 Elevated PSA R97.20
== END 2023-03-22 16:01 | disposition home or self-care (01) ==
LOC: HO.HUSH 14:56
PROVIDERS: PCP Nurse Practitioner Primary Care; Visit Provider Urology
DX: C61 Malignant neoplasm of prostate (principal); N40.1 Benign prostatic hyperplasia with lower urinary tract symptoms; N13.8 Other obstructive and reflux uropathy; R97.20 Elevated prostate specific antigen [PSA]
CPT/HCPCS: 99214

== ENCOUNTER 2024-05-23 08:46 | Outpatient (REF) | payer MEDICAID, SELFPAY ==
[2024-05-23 11:19] LABS: PSA,Total (Free>4and<10) 14.36 ng/mL (0.00-4.00)
== END 2024-05-23 08:47 | disposition home or self-care (01) ==
LOC: HO.LAB 08:46
PROVIDERS: PCP Nurse Practitioner Primary Care; Visit Provider Urology
DX: R97.20 Elevated prostate specific antigen [PSA] (principal)
CPT/HCPCS: 36415; 84153

== ENCOUNTER 2024-06-02 15:08 | Outpatient (AMB) | payer MEDICAID, SELFPAY ==
--- NOTE | 2024-06-02 15:16 | A.OFFVIS_ITS ---
Intake Visit Reasons: 4m/PSA Intake Note: Patient presents to office today for a 4 month follow up/PSA PSA:14.36 Urology Meds- None Allergies to Antibiotic- No Known Allergies Blood Thinner- None PVR:31ml Regulatory Intern Required: No Accompanied by: Self / Same As Patient Allergies No Known Allergies [No Known Allergies*] Allergy (Verified 03/22/23 15:17) HPI Comments Details: 06/02/24--James is a 64-year-old male who has been followed for active surveillance in the past for prostate cancer. He lost his insurance and his PSA has now gone up to 14.36. He had previous prostate biopsy which noted cancer group 1 and group 2 The patient states that his diabetes has been under better control and he states he changed his diet to more fruits and vegetables and his fingersticks have been in the 120s and he has noticed decreased urinary frequency. I have discussed further evaluation with MRI of the prostate and a PET body scan. The patient also complains of blood after having a bowel movement when he wipes and he feels that he may have a hemorrhoid he has been given an ointment by his PCP which has helped with the itching but he still has pain. I will refer him to General surgery for evaluation for surgical management. 03/22/23--James is here for evaluation for elevated PSA, he was last seen by Dr. Dunham in 2020 and was placed on active surveillance for low volume prostate cancer. The patient states he has not followed up with a Urologist since that time. He had been prescribed proscar and tadalfil, in the past. He did not get the repeat PSA -- PSA was 9.94 on 07/27/20 03/22/23-- s/p repeat Prostate biopsy on 03/13/23- results detailed below in the results section: Group 1 and group 2 - involving both the right and left sides of the prostate. I want him to have 2nd opinion with Dr. Alfaro to evaluate regarding surgery. Review of chart: Erectile dysfunction Did have some response to tadalafil. Lower urinary tract symptoms Has narrowing of stream Nocturia times 2-3 Will benefit from combination tamsulosin and finasteride Tamsulosin added to finasteride prescription Prostate cancer PSA-- 05/15 --7.1, PSA --08/16 --9.9 Adenocarcinoma of the prostate (T1c N0 M0, Traci score 7, Grade Group 2 , PSA at Diagnosis) NCCN favorable intermediate Prostate cancer was diagnosed Dr Dunham May 2019 Diagnosis was reached by - needle biopsy - , for elevated PSA 7.6 - , size at TRUS. The Traci grade is 3+4 Date: May 2019 12 Core biopsy Positive Biopsies: 4 - 3+4 right base lateral, 3+3 right base medial, right mid medial, right apex medial Negative Biopsies: Traci 4 or 5: < 5% total (%) Positive: 10% total Locations: TNM Classification of Malignant Tumours (TNM) - , T1c The D'Kirk (NCCN) risk category is - - Favorable Intermediate Risk (PSA 10-20, Gl 7, T2) Group 2 Initial therapy included - active surveillance 03/22/23--Plan: Refer to Dr. Alfaro [facility] Medical History (Updated 06/07/23 @ 13:34 by Temitope Oliveira RN) GERD (gastroesophageal reflux disease) Elevated cholesterol Erectile dysfunction BPH (benign prostatic hyperplasia) Surgical History (Updated 06/07/23 @ 13:31 by Temitope Oliveira RN) Hx of prostate biopsy H/O knee surgery H/O colonoscopy Family History Mother Advancing dementia Social History Household Members: Spouse Alcohol intake: current Alcohol intake frequency: holidays/special occasions only Alcohol type: beer Patient Tobacco Use Status: Never used Tobacco Office Procedures Post Void Residual Post Residual Void Post Void Residual (PVR): 31 [id number] Void Residual by ultrasound Assessment & Plan Assessment & Plan (1) Prostate cancer: Code(s): C61 - Malignant neoplasm of prostate Category: Medical (2) Elevated PSA: Code(s): R97.20 - Elevated prostate specific antigen [PSA] Category: Medical Orders: Orders PET CT fusion whole body Today C61 - Malignant neoplasm of prostate, R97.20 - Elevated prostate specific antigen [PSA] PSA,Total (Free>4and<10) 05/23/24 R97.20 - Elevated prostate specific antigen [PSA] MR Prostate wo/w con Today C61 - Malignant neoplasm of prostate Referrals General Surgery Referral C61 - Malignant neoplasm of prostate, R97.20 - Elevated prostate specific antigen [PSA] Coding Diagnoses Prostate cancer C61 Elevated PSA R97.20 CPT Codes Post Residual Void - PVR CPT Code: 97174-[id number] Void Residual by ultrasound ([id number])
--- OUTSIDE RECORDS SUMMARY | 2024-06-02 17:57 | XMS_ITS | Encounter Summary ---
Author Organization [employer] Address [address] [facility] [address] [place] [address] Care Team Providers Care Water And Sewer Systems Superintendent Name Role Phone Lizy Garcia Primary Care Provider [phone] Shira Mack RN Unavailable [phone] Reason for Visit * Reason Comments Med Refill Encounter Details Date Type Department Care Team ([facility] st Contact Info) Description 05/13/2024 Refill [facility] [address] [place], [place] [phone] Taras Shrestha MD [address] [place], [place] [phone] Dermatophytosis Social History Tobacco Use Types Packs/Day Years Used Date Smoking Tobacco: Never Passive Smoke Exposure: Never Smokeless Tobacco: Never Alcohol Use Standard Drinks/Week Comments Not Currently 0 (1 standard drink = 0.6 oz pur e alcohol) Depression Answer Date Recorded Patient Health Questionnaire-9 Score 0 04/10/2024 Patient Health Questionnaire-9 Score 0 04/10/2024 Last PHQ-9: Questionnaire Data Not on file 0 04/10/2024 Housing Stability Answer Date Recorded What is your housing situation today? I have sloane lyles 04/03/[address] you li ve. Do you have problems with any of the following? None of the above 04/03/2023 Food Insecurity Answer Date Recorded Within the past 12 months, y ou worried that your food would run out before you got money to buy more: Never True 04/03/2023 Within the past 12 months,th e food you bought just didn't last and you didn't have enough money to get more: Never True 07/2023 Transportation Answer Date Recorded In the past 12 months, has l ack of transportation kept you from medical appts, meetings, work or from getting things needed for daily living? No 04/03/2023 Utilities Answer Date Recorded In the past 12 months, has t he electric, gas, oil or water company threatened to shut off services in your home? No 04/03/2023 Depression Answer Date Recorded Patient Health Questionnaire-2 Score 0 04/10/2024 Sex and Gender Information Value Date Recorded Sex Assigned at Male 12/26/2021 10:16 AM EDT Legal Sex Male 10:16 AM EDT Gender Identity Male 12/26/2021 10:16 AM EDT Sexual Orientation Straight 12/26/2021 10 :16 AM EDT documented as of this encounter Plan of Treatment Upcoming Encounters Date Type Department Care Team (Late st Contact Info) Description 07/08/2024 2:15 PM EDT Office Visit [facility] [address] [place] [address] Lizy Garcia ANP [address] [place] [address] 09/04/2024 3:00 PM EDT Office Visit [facility] [address] [place] [address] North, Lulú, OD [address] [place] [address] documented as of this encounter Visit Diagnoses Diagnosis Dermatophytosis Dermatophytosis of unspecified site documented in this encounter Additional Health Concerns Assessment Noted Time PHQ-9 Depression Total Score: 0 04/10/19 3:43 PM EST documented as of this encounter Care Teams Water And Sewer Systems Superintendent Relationship Specialty Start Date End Date Lizy Garcia ANP [address] [place] [address] PCP - General Family Medicine 12/24/19 Shira Mack RN [address] [place] [id number] Business Operations Analyst Family Medicine 03/27/24 documented as of this encounter
--- OUTSIDE RECORDS SUMMARY | 2024-06-02 17:57 | XMS_ITS | Encounter Summary ---
Author Organization [facility] Address [address] [place] [address] [address] [place] [address] Care Team Providers Care Women'S Activities Adviser Name Role Phone Lizy Garcia Primary Care Provider [phone] Shira Mack RN Unavailable [phone] Encounter Details Date Type Department Care Team (Latest Contact Info) Description 03/24/2019 Abstract [facility] Dental, Provider, DDS Social History Tobacco Use Types Packs/Day Years Used Date Smoking Tobacco: Never Assessed Sex and Gender Information Value Date Recorded Sex Assigned at Male 12/26/2021 10:16 AM EDT Legal Sex Male 10:16 AM EDT Gender Identity Male 12/26/2021 10:16 AM EDT Sexual Orientation Straight 12/26/2021 10 :16 AM EDT documented as of this encounter Plan of Treatment Upcoming Encounters Date Type Department Care Team (Late st Contact Info) Description 07/08/2024 2:15 PM EDT Office Visit [facility] [address] [place] [address] Lizy Garcia ANP [address] [place] [address] 09/04/2024 3:00 PM EDT Office Visit [facility] [address] [place] [address] Lulú Kat, OD [address] [place] [address] documented as of this encounter Visit Diagnoses Not on filedocumented in this encounter Care Teams Women'S Activities Adviser Relationship Specialty Start Date End Date Lizy Garcia ANP [address] [place] [address] PCP - General Family Medicine 12/24/19 Shira Mack, BENY [address] [place] [address] [facility] 03/27/24 documented as of this encounter
--- OUTSIDE RECORDS SUMMARY | 2024-06-02 17:57 | XMS_ITS | Encounter Summary ---
Author Organization [employer] Address [address] [facility] [address] [place] [address] Care Team Providers Care Xerox Machine Operator Name Role Phone Lizy Garcia Primary Care Provider [phone] Shira Mack RN Unavailable [phone] Reason for Visit * Reason Comments Med Refill Encounter Details Date Type Department Care Team ([facility] st Contact Info) Description 01/21/[address] [facility] [address] [place], [place] [phone] Lizy Garcia ANP [address] [place], [place] [phone] GERD without esophagitis Social History Tobacco Use Types Packs/Day Years Used Date Smoking Tobacco: Never Passive Smoke Exposure: Never Smokeless Tobacco: Never Alcohol Use Standard Drinks/Week Comments Not Currently 0 (1 standard drink = 0.6 oz pur e alcohol) Housing Stability Answer Date Recorded What is your housing situation today? I have sloane lyles 12/27/[address] you li ve. Do you have problems with any of the following? None of the above 12/27/2022 Food Insecurity Answer Date Recorded Within the past 12 months, y ou worried that your food would run out before you got money to buy more: Never True 12/27/2022 Within the past 12 months,th e food you bought just didn't last and you didn't have enough money to get more: Never True 02/2022 Transportation Answer Date Recorded In the past 12 months, has l ack of transportation kept you from medical appts, meetings, work or from getting things needed for daily living? No 12/27/2022 Utilities Answer Date Recorded In the past 12 months, has t he electric, gas, oil or water company threatened to shut off services in your home? No 12/27/2022 Depression Answer Date Recorded Patient Health Questionnaire-2 Score 0 02/06/2022 Sex and Gender Information Value Date Recorded Sex Assigned at Male 12/26/2021 10:16 AM EDT Legal Sex Male 10:16 AM EDT Gender Identity Male 12/26/2021 10:16 AM EDT Sexual Orientation Straight 12/26/2021 10 :16 AM EDT documented as of this encounter Plan of Treatment Upcoming Encounters Date Type Department Care Team (Late st Contact Info) Description 07/08/2024 2:15 PM EDT Office Visit [facility] [address] [place] [address] Lizy Garcia ANP [address] [place] [address] 09/04/2024 3:00 PM EDT Office Visit [facility] [address] [place] [address] North, Lulú, OD [address] [place] [address] documented as of this encounter Visit Diagnoses Diagnosis GERD without esophagitis Esophageal reflux documented in this encounter Care Teams Xerox Machine Operator Relationship Specialty Start Date End Date Lizy Garcia ANP [address] [place] [address] PCP - General Family Medicine 12/24/19 Shira Mack, RN [address] [place] [address] Consumer Lender Family Medicine 03/27/24 documented as of this encounter
--- OUTSIDE RECORDS SUMMARY | 2024-06-02 17:57 | XMS_ITS | Clinical Summary ---
Author Organization [facility] Address [address] [place] [address] Care Team Providers Care Regulatory Affairs Specialist Name Role Phone Pcp, No Primary Care Provider Unavailabl e Social History Tobacco Use Types Packs/Day Years Used Date Smoking Tobacco: Never Assessed Sex and Gender Information Value Date Recorded Sex Assigned at Male 05/28/2023 8:32 AM EDT Gender Identity Male 05/28/2023 8:32 AM EDT Sexual Orientation Heterosexual (straight) 05/27 8:32 AM EDT Plan of Treatment Health Maintenance Due Date Last Done Comments Hepatitis C Virus Screening 1960 HIV Screening 1973 DTaP/Tdap/Td Vaccines (1 - Tdap) 1979 Pneumococcal Vaccines 50+ (1 of 1 - PCV) 2010 Zoster (Shingles) Vaccine (1 of 2) 2010 COVID-19 Vaccine ( - 2023-2 5 season) 2023 RSV Vaccine 60 years and old er and Patients (1 - 1-dose 75+ series) 2035 Hepatitis B Vaccines Aged Out No long er eligible based on patient's age to complete this topic Pneumococcal Vaccine: Pediat cris (0-5 Years) and At-Risk Patients (6 to 49 Years) Aged Out No longer eligible b ased on patient's age to complete this topic Care Teams Regulatory Affairs Specialist Relationship Specialty Start Date End Date Pcp, Cheri PCP - General General Medicine 05/24/23
--- OUTSIDE RECORDS SUMMARY | 2024-06-02 17:57 | XMS_ITS | Encounter Summary ---
Author Organization [employer] [facility] Address [address] [place] [address] [address] [place] [address] Care Team Providers Care Service Station Helper Name Role Phone Lizy Garcia Primary Care Provider [phone] Shira Mack RN Unavailable [phone] Encounter Details Date Type Department Care Team (Latest Contact Info) Description 01/05/2021 Abstract [facility] CONVERSIONS Dental, Provider, DDS Social History Tobacco [...] Description 07/08/2024 2:15 PM EDT Office Visit [facility] MEDIC[facility] [address] [place] [address] Lizy Garcia ANP [address] [place] [address] 09/04/2024 3:00 PM EDT Office Visit [facility] [address] [place] [address] Lulú Kat, OD [address] [place] [address] documented as of this encounter Visit Diagnoses Not on filedocumented in this encounter Care Teams Service Station Helper Relationship Specialty Start Date End Date Lizy Garcia ANP [address] [place] [address] PCP - General Family Medicine 12/24/19 Shira Mack RN [address] [place] [address] Scientific Specialist Family Medicine 03/27/24 documented as of this encounter
--- OUTSIDE RECORDS SUMMARY | 2024-06-02 17:57 | XMS_ITS | Clinical Summary ---
Author Organization [employer] Address [address] [place] [address] [address] [place] [address] Care Team Providers Care Salesperson Driver Name Role Phone Lizy Garcia Primary Care Provider [phone] Shira Mack RN Unavailable [phone] Allergies No known active allergies Medications Vitamin D High Potency 25 MCG (1000 UT) capsule TAKE 1 CAPSULE BY MOUTH EVERY DAY 90 capsule 1 3 Active Arthritis Pain Relief 650 MG ER tablet TAKE 2 TABLETS BY MOUTH EVERY 8 HOURS NEEDED WITH WATER 100 tablet 1 3 Active insulin degludec (Tresiba FlexTouch) 100 UNIT/ML injectionIndicat ions:Hyperglycem ia due to diabetes mellitus ([facility]) Inject 10 Units under the skin Once daily. 3 mL 3 5 026 Active FREESTYLE LITE test stripIndications :Hyperglycemia due to diabetes mellitus ([facility]) Use to test blood sugar 3 times daily 100 each 12 5 026 Active Lancets miscIndications: Hyperglycemia due to diabetes mellitus ([facility]) Use to test blood sugar 3 times daily 100 each 5 Active Alcohol Swabs 70 % padsIndications: Hyperglycemia due to diabetes mellitus ([facility]) Use to clean skin before checking blood sugar 100 each 11 5 Active Blood Glucose Monitoring Suppl (FreeStyle [place] Lite) w/Device kitIndications:H yperglycemia due to diabetes mellitus ([facility]) Use to test blood sugar 3 times daily 1 kit 5 Active atorvastatin (Lipitor) 20 MG tabletIndication s:Dyslipidemia Take 1 tablet at bedtime once daily 90 tablet 3 5 Active omeprazole (PriLOSEC) [address] capsuleIndicatio ns:GERD without esophagitis Take 1 capsule (20 mg) by mouth before breakfast. Do not crush or chew. 90 capsule 1 5 Active tadalafil (Cialis) 5 MG tabletIndication s:Erectile dysfunction, unspecified erectile dysfunction type Take 1 tablet (5 mg) by mouth Once per day. 30 tablet 1 5 Active metFORMIN XR (Glucophage-XR) 500 MG 24 hr tabletIndication s:New onset type 2 diabetes mellitus (CMS/HCC) Take 1 tab once daily with food for 1 week then 1 tab twice daily with meals. Do not crush, chew, or split. 180 tablet 1 5 Active senna-docusate sodium (Senokot-S) 8.6-50 MG tabletIndication s:Constipation, unspecified constipation type Take 1 tab once daily for constipation 90 tablet 1 5 Active Continuous Glucose Sensor (FreeStyle Jey 2 Sensor) miscIndications: New onset type 2 diabetes mellitus (CMS/HCC) Apply 1 sensor every 14 days 2 each 5 Active glucose blood (FreeStyle Precision Junior Test) test stripIndications :New onset type 2 diabetes mellitus (CMS/HCC) Use to test blood sugar 3 times daily 100 each 12 5 026 Active Continuous Glucose Performing Artist (FreeStyle Jey 2 [place]) deviceIndication s:New onset type 2 diabetes mellitus (CMS/HCC) SCAN SENSOR EVERY 8 HOURS 2 each 11 5 Active fluconazole (Diflucan) 150 MG tabletIndication s:Dermatophytosi s Take 1 tab now and again in 3 days 2 tablet 5 Active polycarbophil (FiberCon) 625 MG tabletIndication s:Constipation, unspecified constipation type Take 1 tablet (625 mg) by mouth Once per day. For constipation 90 tablet 1 5 026 Active pen needle 33G x 4 mm miscIndications: Hyperglycemia due to diabetes mellitus (CMS/HCC) Use with tresiba once daily 100 each 12 5 026 Active Active Problems Problem Noted Date Diagnosed Date Prediabetes 03/05/2024 Crowded teeth 02/26/2024 Periodontal disease 02/26/2024 Dental calculus 02/26/2024 Missing teeth, acquired 02/26/2024 Excessive attrition of teeth, limited to enamel 02/26/2024 Localized gingival recession 02/26/2024 Erosion of teeth, limited to enamel 01/24/2023 Cardiovascular event risk 03/27/2022 Overview (03/27/2022): 10-yr ASCVD risk 11.5%, rec intensify statin and add ASA, consider BP med H/O colonoscopy with polypectomy 01/27/2022 Raised prostate specific antigen 06/13/2019 Malignant tumor of prostate 05/28/2019 Anterior knee pain 01/30/2018 Dyslipidemia 01/30/2018 Lateral epicondylitis 01/30/2018 Acute low back pain 09/10/2017 Erectile dysfunction 01/01/2017 IFG (impaired fasting glucose) 01/01/2017 Heartburn 04/18/2016 Hypercholesterolemia 04/18/2016 Pain in left leg 04/18/2016 Encounters Date Type Department Care Team Description 05/23/2024 Orders Only GENERIC EXTERNAL DATA DEPARTMENT Provider, Generic External Data 05/13/2024 Refill [facility] [address] [place] [phone] Taras Shrestha MD Dermatophytosis 05/09/2024 Population Health Risk Score [facility] () Department [address] [place] [phone] Provider, Population Health Generic 04/25/2024 Telephone [facility] [address] [place] [address] Shira Mack, RN RN DSMES Outreach 04/18/2024 3:00 PM EST Clinical Support [facility] [address] [place] [phone] Shira Mack, RN New onset type 2 diabetes mellitus ([facility]/HCC) 04/18/2024 Refill [facility] [address] [place] [phone] Shira Mack, RN Hyperglycemia due to diabetes mellitus (CMS/HCC) 04/10/2024 2:30 PM EST Office Visit [address] [address] Lizy Garcia ANP Hyperglycemia due to diabetes mellitus (CMS/HCC) (Primary Dx); Malignant tumor of prostate (CMS/HCC); Dyslipidemia; Dermatophytosis; Constipation, unspecified constipation type; Acute right-sided low back pain without sciatica 04/10/2024 Travel 04/03/[address] [address] Shira Mack, RN RN DSMES F/U 03/31/[address] [address] Lizy Garcia ANP New onset type 2 diabetes mellitus (CMS/HCC) 03/27/2024 3:00 PM EST Clinical Support [address] [address] Shira Mack, BENY New onset type 2 diabetes mellitus ([facility]/HCC) 03/27/2024 Travel 03/19/[address] [address] Shira Mack, cheese weigher Question 03/12/2024 2:00 PM EST Clinical Support [address] [address] Shira Mack, BENY New onset type 2 diabetes mellitus ([facility]/HCC) 03/12/2024 Travel 03/08/2024 11:20 AM EST Office Visit [facility] [address] [place] [phone] Taras Shrestha MD Dermatophytosis (Primary Dx); Colon cancer screening 03/08/2024 Travel 03/06/[address] [address] Lizy Garcia ANP 03/06/[address] [address] Lizy Garcia ANP 03/06/[address] [address] Kailey Mendez, box inspector 03/05/2024 3:00 PM EST Office Visit [address] [place] [address] Lizy Garcia ANP New onset type 2 diabetes mellitus (CMS/HCC) (Primary Dx); Prediabetes; Hyperglycemia due to diabetes mellitus (CMS/HCC); Constipation, unspecified constipation type; Dyslipidemia; GERD without esophagitis; Erectile dysfunction, unspecified erectile dysfunction type; Malignant tumor of prostate (CMS/HCC); Dietary counseling; Exercise counseling; Colon cancer screening 03/05/2024 Travel from Last 3 Months Immunizations Name Administration Dates Next Due Pfizer Covid-19 Vaccine 12+ 04/20/2021, Tdap 05/15/2017,06/04/2014 Zoster, Recombinant 01/06/2021,11/04/2020 Family History Medical History Relation Name Comments Alzheimer's disease Mother Relation Name Status Comments Mother Social History Tobacco Use Types Packs/Day Years Used Date Smoking Tobacco: Never Passive Smoke Exposure: Never Smokeless Tobacco: Never Tobacco Cessation:Counseling Given: Not Answered Alcohol Use Standard Drinks/Week Comments Not Currently [...] Orientation Straight 12/26/2021 10 :16 AM EDT Last Filed Vital Signs Vital Sign Reading Time Taken Comments Blood Pressure 109/67 04/10/2024 3:00 PM EST Pulse 88 04/10/2024 3:00 PM EST Temperature 36.6 ??C (97.8 ??F) 04/10/2024 3:00 PM ES T Respiratory Rate 14 04/10/2024 3:00 PM EST Oxygen Saturation 99% 04/10/2024 3:00 PM EST Inhaled Oxygen Concentration - - Weight 74.9 kg (165 lb 3.2 oz) 04/10/2024 3:00 P M EST Height 167.6 cm (5' 6 ) 03/08/2024 9:50 AM EST Body Mass Index 26.66 03/08/2024 9:50 AM EST Plan of Treatment Upcoming Encounters Date Type Department Care Team (Late st Contact Info) Description 07/08/2024 2:15 PM EDT Office Visit [facility] [address] [place] [address] Lizy Garcia, MARY [address] [place] [address] 09/04/2024 3:00 PM EDT Office Visit [facility] [address] [place] [address] NorthLulú braswell, OD [address] [place] [address] Health Maintenance Due Date Last Done Comments CT Colonography 1960 FIT DNA/Cologuard 1960 FIT 1960 FOBT 1960 Sigmoidoscopy 1960 Diabetes: Foot Exam 1970 Eye Exam 1970 Alcohol/Substance Use Screening 1972 Diabetes: Urine Protein Screening 1979 Pneumococcal Vaccine: 50+ Years (1 of 2 - PCV) 1979 Colonoscopy 05/24/2021 05/24/2020 Colorectal Cancer Screening 05/24/2021 Lipid Panel 03/10/2023 03/10/2022, 01/09/2020 COVID-19 Vaccine (3 - 2023- season) 2023 04/20/2021, 03/30/2021 Influenza Vaccine (#1) 2023 SDOH Screening 04/03/2024 04/03/2023 Diabetes: Hemoglobin A1C 07/08/2024 025, 03/05/2024, 04/03/2023, Additional history exists Dental Oral Exam 08/26/2024 02/26/2024, , 01/05/2021, Additional history exists Dental Prophylaxis 08/26/2024 02/26/2024, 1 03/07/2020, 03/24/2019, Additional history exists Dental X-Ray: Bitewings 02/26/2025 02/26/20 24, 01/24/2023, 01/05/2021, Additional history exists Depression Screening 04/10/2025 04/10/2024, 04/10/19 25 Tobacco Screening 04/10/2025 04/10/2024 Dental X-Ray: Full Mouth 01/25/2026 023, 01/05/2021, 09/04/2014 DTaP/Tdap/Td Vaccines (3 - Td or Tdap) 05/16/2027 05/15/2017, 06/04/2014 RSV Patients and Patients Aged 60 years or older (1 - 1-dose 75+ series) 2035 HIV Screening Completed 01/09/2020 Hepatitis C Screening Completed 01/09/2020 Zoster Vaccines Completed 01/06/2021, 11/04/2020 HIB Vaccines Aged Out No longer eligi ble based on patient's age to complete this topic HPV Vaccines Aged Out No longer eligi ble based on patient's age to complete this topic Hepatitis A Vaccines Aged Out No long er eligible based on patient's age to complete this topic Hepatitis B Vaccines Aged Out No long er eligible based on patient's age to complete this topic IPV Vaccines Aged Out No longer eligi ble based on patient's age to complete this topic Meningococcal Vaccine Aged Out No elton shirin eligible based on patient's age to complete this topic RSV under 20 months Aged Out No longe r eligible based on patient's age to complete this topic Rotavirus Vaccines Aged Out No longer eligible based on patient's age to complete this topic Procedures Procedure Name Priority Date/Time Associated Diagnosis Comments PSA, TOTAL WITH REFLEX TO PSA, FREE Routine 05/23/2024 9:15 AM EDT POCT GLUCOSE Routine 04/18/2024 9:43 AM EST New onset type 2 diabetes mellitus (CMS/HCC) POCT GLYCATED HEMOGLOBIN, TOTAL Routine 04/10/2024 3:46 PM EST Hyperglycemia due to diabetes mellitus (CMS/HCC) POCT GLUCOSE Routine 04/10/2024 3:42 PM EST Hyperglycemia due to diabetes mellitus (CMS/HCC) POCT GLUCOSE Routine 03/27/2024 4:08 PM EST New onset type 2 diabetes mellitus (CMS/HCC) POCT GLUCOSE Routine 03/12/2024 4:03 PM EST New onset type 2 diabetes mellitus (CMS/HCC) POCT GLUCOSE Routine 03/05/2024 4:50 PM EST New onset type 2 diabetes mellitus (CMS/HCC) Hyperglycemia due to diabetes mellitus (CMS/HCC) POCT URINALYSIS DIPSTICK Routine 03/05/2024 4:30 PM EST Hyperglycemia due to diabetes mellitus (CMS/HCC) POCT GLUCOSE Routine 03/05/2024 4:16 PM EST Hyperglycemia due to diabetes mellitus (CMS/HCC) POCT GLUCOSE Routine 03/05/2024 4:00 PM EST Prediabetes POCT GLYCATED HEMOGLOBIN, TOTAL Routine 03/05/2024 3:59 PM EST Prediabetes Full PROPHYLAXIS - ADULT Routine 02/26/2024 11:00 AM EST Dental calculus Periodontal disease BITEWINGS - 4 RADIOGRAPHIC IMAGES Routine 02/26/2024 11:00 AM EST Crowded teeth Dental calculus Periodontal disease Missing teeth, acquired Excessive attrition of teeth, limited to enamel Localized gingival recession PERIODIC ORAL EVALUATION - ESTABLISHED PATIENT Routine 02/26/2024 11:00 AM EST INTRAORAL - COMPLETE SERIES OF RADIOGRAPHIC IMAGES Routine 01/24/2023 3:30 PM EST LIPID PANEL, STANDARD Routine 03/10/2022 8:51 AM EST Healthcare maintenance HM COLONOSCOPY Routine 05/24/2020 ZZZ HISTORICAL HEPATITIS C AB W/REFL TO HCV RNA, QN, PCR Routine 01/09/2020 10:22 AM EST HIV 1/2 ANTIGEN/ANTIBODY, FOURTH GENERATION W/RFL Routine 01/09/2020 10:22 AM EST from Last 3 Months or Most Recently Relevant to Health Maintenance Results * (ABNORMAL) PSA, Total With Reflex to PSA, Free (05/23/2024 9:15 AM EDT) PSA,Total (Free>4and<10) 14.36(H ) 0.00 - 4.00 ng/mL [facility] Comment:A Free PSA was not p erformed: The percentage of Free PSA can be used to enhance the differentiation of prostate cancer from benign prostatic disease in subjects whose PSA levels are between 4.0 and 10.0 ng/mL. For subjects whose PSA levels are below 4.0 or above 10.0 ng/mL, the risk of prostate cancer is determined on the basis of the PSA alone. Therefore the % Free PSA is recommended only for those subjects whose PSA levels are between 4.0 and 10.0 ng/mL.PSA methodology: Beltran Alinity i ChemiluminescentMicroparticle Immunoassay (CMIA) 05/23/2024 9:15 AM EDT 05/23/2024 9:15 AM EDT us Generic External Data Provider LAB BLOOD ORDERAB LES Final Result [facility] [address] [place] [phone] * POCT Glucose (04/18/2024 9:43 AM EST) Only the most recent of7 resultswithin the time period is included. Glucose Blood, POC 146 60 - 200 mg/dL QC Media Lot # [id number] Lot# Expiration Date 8137, Blood Capillary blood specimen / Unknown 04/18/2024 9:43 AM EST [facility] POINT OF CARE TEST ENTER/EDIT OR DERABLES Final Result * (ABNORMAL) POCT HGB A1C (04/10/2024 3:46 PM EST) Only the most recent of2 resultswithin the time period is included. Hemoglobin A1C 10.1(A) 4.0 - 6.0 % QC Media Lot # [id number] Lot# Expiration Date , Blood 04/10/2024 3:46 PM EST [facility] POINT OF CARE TEST ENTER/EDIT OR DERABLES Final Result * POCT urinalysis dipstick manually resulted (03/05/2024 4:30 PM EST) Color, UA Yellow Clarity, UA Clear Glucose, UA 3+ 500+++ Bilirubin, UA Negative Ketones, UA Negative Spec Grav, UA 1.015 Blood, UA Negative Negative, None Detected pH, UA 5.5 Protein, UA Negative Urobilinogen, UA 0.2 Leukocytes, UA Negative Negative, Rare, Trace Nitrite, UA Negative Negative, None Detected Appearance, UA yellow QC Media Lot # [id number] Lot# Expiration Date 038,025 Urine 03/05/2024 4:30 PM EST [facility] POINT OF CARE TEST ENTER/EDIT OR DERABLES Final Result * (ABNORMAL) Lipid Panel, Standard (03/10/2022 8:51 AM EST) Cholesterol, Total 246(H) <200 mg/dL [facility] [place] [facility] HDL Cholesterol 44 > OR = 40 mg/dL [facility] [place] M[facility] Triglycerides 242(H) <150 mg/dL [facility] Comment: If a non-fasting specimen was collected, consider repeat triglyceride testing on a fasting specimen if clinically indicated. Edward et al. J. of Clin. Lipidol. 2015;9:129-169. LDL Cholesterol 161(H) mg/dL (calc) [facility] Comment: Reference range: <100 Desirable range <100 mg/dL for primary prevention; ?? <70 mg/dL for patients with CHD or diabetic patients with > or = 2 CHD risk factors. LDL-C is now calculated using the Sanjay calculation, which is a validated novel method providing better accuracy than the Friedewald equation in the estimation of LDL-C. Juarez SS et al. AMIRA. 2013;310(19): 8177-0421 (http://education.GridNetworks/faq/TGK751) Chol/HDLC Ratio 5.6(H) <5.0 (calc) [facility] Non-HDL Cholesterol 202(H) <130 mg/dL (calc) [facility] Comment: For patients with diabetes plus 1 major ASCVD risk factor, treating to a non-HDL-C goal of <100 mg/dL (LDL-C of <70 mg/dL) is considered a therapeutic option. Blood Venous blood specimen / Unknown 03/10/2022 8:51 AM EST 03/10/2022 8:51 AM EST Narrative [facility] - 03/13/2022 1:26 PM EST FASTING:YES FASTING: YES [facility] LAB BLOOD ORDERABLES Final Resul t [facility] [address] [facility] [place] [address] [facility] [address] [facility], ([address]) [place] [address] * Hm Colonoscopy (05/24/2020) Colonoscopy Normal Normal Historical Provider HEALTH MAINTENANCE Final Result * HEPATITIS C AB W/REFL TO HCV RNA, QN, PCR (01/09/2020 10:22 AM EST) HEPATITIS C ANTIBODY NON-REACT [facility] NON-REACT [facility] INDEX 0.02 <1.00 [facility] Comment: ?? HCV antibody was non-reactive. There is no laboratory ?? evidence of HCV infection. ?? In most cases, no further action is required. However, if recent HCV exposure is suspected, a test for HCV RNA (test code 12238) is suggested. ?? For additional information please refer to http://[employer]/faq/NAH45e7 (This link is being provided for informational/ educational purposes only.) ?? HEPATITIS C ANTIBODY NON-REACT [facility]ANNY NON-REACT [facility] INDEX 0.02 <1.00 [facility] Comment: ?? HCV antibody was non-reactive. There is no laboratory ?? evidence of HCV infection. ?? In most cases, no further action is required. However, if recent HCV exposure is suspected, a test for HCV RNA (test code 07794) is suggested. ?? For additional information please refer to http://[employer]/faq/RAR45p5 (This link is being provided for informational/ educational purposes only.) ?? HEPATITIS C ANTIBODY NON-REACT GIOVANNY NON-REACT [facility] INDEX 0.02 <1.00 [facility] Comment: ?? HCV antibody was non-reactive. There is no laboratory ?? evidence of HCV infection. ?? In most cases, no further action is required. However, if recent HCV exposure is suspected, a test for HCV RNA (test code 33143) is suggested. ?? For additional information please refer to http://[employer]/faq/IQV41u3 (This link is being provided for informational/ educational purposes only.) ?? 01/09/2020 10:2 2 AM EST Lizy Garcia ANP HISTORICAL/NON ORDERABLE LABS Fi nal Result [facility] [address] * HIV 1/2 ANTIGEN/ANTIBODY,FOURTH GENERATION W/RFL (01/09/2020 10:22 AM EST) Pathologist [facility] HIV-1/2 ANTIGEN AND ANTIBODIES, 4TH GENERATION W/ REFLEX NON-REACT GIOVANNY NON-REACT GI[facility]NY [facility] Comment: HIV-1 antigen and HIV-1/HIV-2 antibodies were not detected. There is no laboratory evidence of HIV infection. ?? PLEASE NOTE: This information has been disclosed to you from records whose confidentiality may be protected by state law. ??If your state requires such protection, then the state law prohibits you from making any further disclosure of the information without the specific written consent of the person to whom it pertains, or as otherwise permitted by law. A general authorization for the release of medical or other information is NOT sufficient for this purpose. ? For additional information please refer to http://[employer]/faq/JNB655 (This link is being provided for informational/ educational purposes only.) ? The performance of this assay has not been clinically validated in patients less than 2 years old. ?? HIV-1/2 ANTIGEN AND ANTIBODIES, 4TH GENERATION W/ REFLEX NON-REACT GIOVANNY NON-REACT GI[facility]ANNY [facility] Comment: HIV-1 antigen and HIV-1/HIV-2 antibodies were not detected. There is no laboratory evidence of HIV infection. ?? PLEASE NOTE: This information has been disclosed to you from records whose confidentiality may be protected by state law. ??If your state requires such protection, then the state law prohibits you from making any further disclosure of the information without the specific written consent of the person to whom it pertains, or as otherwise permitted by law. A general authorization for the release of medical or other information is NOT sufficient for this purpose. ? For additional information please refer to http://[employer]/faq/NJE167 (This link is being provided for informational/ educational purposes only.) ? The performance of this assay has not been clinically validated in patients less than 2 years old. ?? HIV-1/2 ANTIGEN AND ANTIBODIES, 4TH GENERATION W/ REFLEX NON-REACT GIOVANNY NON-REACT GIOVANNY [facility] Comment: HIV-1 antigen and HIV-1/HIV-2 antibodies were not detected. There is no laboratory evidence of HIV infection. ?? PLEASE NOTE: This information has been disclosed to you from records whose confidentiality may be protected by state law. ??If your state requires such protection, then the state law prohibits you from making any further disclosure of the information without the specific written consent of the person to whom it pertains, or as otherwise permitted by law. A general authorization for the release of medical or other information is NOT sufficient for this purpose. ? For additional information please refer to http://education.[employer]/faq/WKM350 (This link is being provided for informational/ educational purposes only.) ? The performance of this assay has not been clinically validated in patients less than 2 years old. ?? 01/09/2020 10:2 2 AM EST Lizy Garcia [facility] LAB BLOOD ORDERABLES Final Resul t [facility] [address] from Last 3 Months or Most Recently Relevant to Health Maintenance Insurance [facility] C[place] AD[place] Care Teams Salesperson Driver Relationship Specialty Start Date End Date Lizy Garcia ANP [address] [place], [place] [phone] PCP - General Family Medicine 12/24/19 Shira Mack RN [address] [place], [place] [phone] Lift Electrician Family Medicine 03/27/24
--- OUTSIDE RECORDS SUMMARY | 2024-06-02 17:57 | XMS_ITS | Encounter Summary ---
Author Organization [facility] Address [address] [place] [address] Care Team Providers Care Gelatin Plant Supervisor Name Role Phone Pcp, No Primary Care Provider Unavailabl e Encounter Details Date Type Department Care Team (Late st Contact Info) Description 05/25/2023 Scanned Document [facility] Urologic Surgery [place] [address] [facility] [address] [place] [address] Mariam Rankin, [place] 201 No [facility] [address] [place] [address] Social History Tobacco Use Types Packs/Day Years Used Date Smoking Tobacco: Never Assessed Sex and Gender Information Value Date Recorded Sex Assigned at Male 05/28/2023 8:32 AM EDT Gender Identity Male 05/28/2023 8:32 AM EDT Sexual Orientation Heterosexual (straight) 05/27 8:32 AM EDT documented as of this encounter Plan of Treatment Not on file documented as of this encounter Visit Diagnoses Not on filedocumented in this encounter Care Teams Gelatin Plant Supervisor Relationship Specialty Start Date End Date Pcp, No PCP - General General Medicine 05/24/23 documented as of this encounter
== END 2024-06-02 16:14 | disposition home or self-care (01) ==
PROVIDERS: PCP Nurse Practitioner Primary Care; Visit Provider Urology
DX: Z13.9 Encounter for screening, unspecified (principal)

== ENCOUNTER → 2024-06-02 15:08 | Outpatient (BNVA) | payer MEDICAID, SELFPAY | PROVIDERS: PCP Nurse Practitioner Primary Care; Visit Provider Urology | DX: R97.20 Elevated prostate specific antigen [PSA] (principal); C61 Malignant neoplasm of prostate | CPT/HCPCS: 51798; 81003 ==

== ENCOUNTER 2024-06-11 09:01 | Outpatient (AMB) | payer MEDICAID, SELFPAY ==
--- NOTE | 2024-06-11 09:03 | MHC.OFFVIS ---
Vital Signs 06/11/24 09:10 Height 5 ft 6 in Weight 170 lb BMI 27.4 BP 103/58 L Blood Pressure Location Rt brachial Position Sitting Pulse 62 Intake Visit Reasons: bleeding hemorrhoids Intake Note: Patient referred by Dr. Luiz Velazco for bleeding hemorrhoids. Patient c/o: blood noted when wiping after BM. Colonoscopy yrs ago. 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 He has occasional itchiness but no pain. He is not sure if he has actually had hemorrhoids that protrude or swell. He has does not have any change in his stool caliber that he can tell. Patient initially thought he had had colonoscopy in the past but that was actually cystoscopy. He has not had a colonoscopy that he remembers was then last few years. Patient otherwise is tolerating a diet. Having regular bowel habits. Weight, energy, appetite are stable. [facility] Medical History GERD (gastroesophageal reflux disease) Elevated cholesterol Erectile dysfunction BPH (benign prostatic hyperplasia) Surgical History Hx of prostate biopsy H/O knee surgery H/O colonoscopy Family History Mother Advancing dementia Social History Household Members: Spouse Alcohol intake: current Alcohol intake frequency: holidays/special occasions only Alcohol type: beer Patient Tobacco Use Status: Never used Tobacco Physical Exam Vital Signs: Last Vital Signs Pulse 62 06/11/24 09:10 BP 103/58 L 06/11/24 09:10 BMI result Body Mass Index 27.4 Const Other: Patient has vitiligo involving extremities neck GI Other: Abdomen is soft, benign. Anorectal exam demonstrates vitiligo of the anorectal area. Small posterior anal fissure. No obvious hemorrhoids demonstrated. Rectal exam was deferred. Assessment & Plan Assessment & Plan (1) Anorectal hemorrhage: Code(s): K62.5 - Hemorrhage of anus and rectum Category: Surgical Plan Patient was reviewed with Dr. Garcia as well. Current recommendation is to arrange for colonoscopy indirect further interventions/studies based on these results. Patient was see me after this. All questions answered. Orders: Referrals Gastroenterology Referral K64.9 - Unspecified hemorrhoids, Z12.11 - Encounter for screening for malignant neoplasm of colon Coding Level of Care Code New Pt Level 4 (54074) Diagnoses Anorectal hemorrhage K62.5
[2024-06-11 09:10] VITALS: BP 103/58; PULSE 62; BMI 27.4
--- OUTSIDE RECORDS SUMMARY | 2024-06-11 09:37 | XMS_ITS | Encounter Summary ---
Author Organization [facility] Address [address] [place] [address] [address] [place] [address] Care Team Providers Care Toe Pounder Name Role Phone Lizy Garcia Primary Care Provider [phone] Shira Mack RN Unavailable [phone] Encounter Details Date Type Department Care Team (Latest Contact Info) Description 03/24/2019 Abstract [facility] CONVERSIONS Dental, Provider, DDS Social History [...] Description 07/08/2024 2:15 PM EDT Office Visit [facility] MEDICINE [address] [place] [address] Lizy Garcia ANP [address] [place] [address] 09/04/2024 3:00 PM EDT Office Visit [facility] OPTOMETRY [address] [place] [address] Lulú Kat, OD [address] [place] [address] documented as of this encounter Visit Diagnoses Not on filedocumented in this encounter Care Teams Toe Pounder Relationship Specialty Start Date End Date Lizy Garcia ANP [address] [place] [address] PCP - General Family Medicine 12/24/19 Shira Mack, BENY [address] [place] [address] Grain Farmer Family Medicine 03/27/24 documented as of this encounter
--- OUTSIDE RECORDS SUMMARY | 2024-06-11 09:37 | XMS_ITS | Encounter Summary ---
Author Organization [employer] Address [address] [facility] 7t [place] [address] Care Team Providers Care Casework Manager Name Role Phone Lizy Garcia Primary Care Provider [phone] Shira Mack RN Unavailable [phone] Reason for Visit * Reason Comments Med Refill Encounter Details Date Type Department Care Team ([facility] st Contact Info) Description 01/21/2023 Refill [facility] MEDICINE [address] [place], [place] [phone] Lizy Garcia ANP [address] [place], [place] [phone] GERD without esophagitis Social History Tobacco Use [...] Description 07/08/2024 2:15 PM EDT Office Visit [facility] MEDICINE [address] [place] [address] Lizy Garcia ANP [address] [place] [address] 09/04/2024 3:00 PM EDT Office Visit [facility] OPTOMETRY [address] [place] [address] North, Lulú, OD [address] [place] [address] documented as of this encounter Visit Diagnoses Diagnosis GERD without esophagitis Esophageal reflux documented in this encounter Care Teams Casework Manager Relationship Specialty Start Date End Date Lizy Garcia ANP [address] [place] [address] PCP - General Family Medicine 12/24/19 Shira Mack, RN [address] [place] [id number] Used Car Salesperson Family Medicine 03/27/24 documented as of this encounter
--- OUTSIDE RECORDS SUMMARY | 2024-06-11 09:37 | XMS_ITS | Clinical Summary ---
Author Organization [facility] Address [address] [place] [address] Care Team Providers Care Lacing Operator Name Role Phone Pcp, No Primary Care Provider Unavailabl e Social History Tobacco Use Types Packs/Day Years Used Date Smoking Tobacco: Never Assessed Sex and Gender Information Value Date Recorded Sex Assigned at Male 05/28/2023 8:32 AM EDT Legal Sex Male 2:00 PM EDT Gender Identity Male 05/28/2023 8:32 AM [...] age to complete this topic Care Teams Lacing Operator Relationship Specialty Start Date End Date Pcp, No PCP - General General Medicine 05/24/23
--- OUTSIDE RECORDS SUMMARY | 2024-06-11 09:37 | XMS_ITS | Clinical Summary ---
Author Organization [employer] Address [address] [place] [address] 7t [place] [address] Care Team Providers Care Senior Contracts Manager Name Role Phone Lizy Garcia Primary Care Provider [phone] Shira Mack RN Unavailable [phone] Allergies No known active allergies Medications [...] injectionIndicat ions:Hyperglycem ia due to diabetes mellitus ([facility]) Inject 10 Units under the skin Once daily. 3 mL 3 5 026 Active FREESTYLE LITE test stripIndications :Hyperglycemia due to diabetes mellitus ([facility]) Use to test blood sugar 3 times daily 100 each 12 5 026 Active Lancets miscIndications: Hyperglycemia due to diabetes mellitus ([facility]) Use to test blood sugar 3 times daily 100 each 5 Active Alcohol Swabs 70 % padsIndications: Hyperglycemia due to diabetes mellitus ([facility]) Use to clean skin before checking blood sugar 100 each 11 5 Active Blood Glucose Monitoring Suppl (FreeStyle [place] Lite) w/Device kitIndications:H yperglycemia due to diabetes mellitus ([facility]) Use to test blood sugar 3 times [...] each 12 5 026 Active Continuous Glucose Frog Shaker (FreeStyle Jey 2 [place]) deviceIndication s:New onset type 2 diabetes mellitus [...] DEPARTMENT Provider, Generic External Data 05/13/2024 Refill [facility] [address] [place] [address] Taras Shrestha MD Dermatophytosis 05/09/2024 Population Health Risk Score [facility] () Department [address] [place] [phone] Provider, Population Health Generic 04/25/2024 Telephone [facility] [address] [place] [address] Shira Mack, RN RN [facility] Outreach 04/18/2024 3:00 PM EST Clinical Support [facility] [address] [place] [address] Shira Mack, RN New onset type 2 diabetes mellitus ([facility]/H[facility]) 04/18/2024 Refill [facility] [address] [place] [address] Shira Mack, RN Hyperglycemia due to diabetes mellitus (CMS/HCC) 04/10/2024 2:30 PM EST Office Visit [address] [address] Lizy Garcia ANP Hyperglycemia due to diabetes mellitus (CMS/HCC) (Primary Dx); Malignant tumor of prostate (CMS/HCC); Dyslipidemia; Dermatophytosis; Constipation, unspecified constipation type; Acute right-sided low back pain without sciatica 04/10/2024 Travel 04/03/[address] [address] Shira Mack, RN RN DSMES F/U 03/31/[address] [address] Lizy Garcia ANP New onset type 2 diabetes mellitus (CMS/HCC) 03/27/2024 3:00 PM EST Clinical Support [address] [address] Shira Mack RN New onset type 2 diabetes mellitus ([facility]/HCC) 03/27/2024 Travel 03/19/[address] [address] Shira Mack, theatre program director Question from Last 3 Months Immunizations Name Administration [...] Description 07/08/2024 2:15 PM EDT Office Visit [facility] MED[facility] [address] [place] [address] Lizy Garcia ANP [address] [place] [address] 09/04/2024 3:00 PM EDT Office Visit [facility] OPTOMETRY [address] [place] [address] Lulú Kat, OD [address] [place] [address] Health Maintenance Due Date Last Done Comments CT Colonography 1960 FIT DNA/Cologuard 1960 FIT 1960 FOBT 1960 Sigmoidoscopy 1960 Diabetes: Foot Exam 1970 Eye Exam 1970 Alcohol/Substance Use Screening 1972 Diabetes: Urine Protein Screening 1979 Pneumococcal Vaccine: 50+ Years (1 of 2 - PCV) 1979 Colonoscopy 05/24/2021 05/24/2020 Colorectal Cancer Screening 05/24/2021 Lipid Panel 03/10/2023 03/10/2022, 01/09/2020 COVID-19 Vaccine ( season) 2023 04/20/2021, 03/30/2021 Influenza Vaccine (#1) [...] New onset type 2 diabetes mellitus (CMS/HCC) Full PROPHYLAXIS - ADULT Routine 02/26/2024 11:00 [...] (Free>4and<10) 14.36(H ) 0.00 - 4.00 ng/mL [facility] Comment:A Free PSA was not [...] Provider LAB BLOOD ORDERAB LES Final Result [facility] [address] [place] [phone] * POCT Glucose (04/18/2024 9:43 AM EST) Only the most recent of3 resultswithin the time period is included. Glucose Blood, POC 146 60 - 200 mg/dL [employer] Media Lot # [id number] Lot# Expiration Date [id number] Blood Capillary blood specimen / Unknown 04/18/2024 9:43 AM EST [facility] POINT OF CARE TEST ENTER/EDIT OR DERABLES Final Result * (ABNORMAL) POCT HGB A1C (04/10/2024 3:46 PM EST) [facility] Hemoglobin A1C 10.1(A) 4.0 - 6.0 % QC Media Lot # [id number] Lot# Expiration Date 060 Blood 04/10/2024 3:46 PM EST Critical access hospital ANP POINT OF CARE TEST ENTER/EDIT OR DERABLES Final Result * (ABNORMAL) Lipid Panel, Standard (03/10/2022 8:51 AM EST) [facility] Cholesterol, Total 246(H) <200 mg/dL [facility] [employer] [facility] HDL Cholesterol 44 > OR = 40 mg/dL [facility] Triglycerides 242(H) <150 mg/dL [facility] [employer] [facility] Comment: If a non-fasting specimen was collected, consider repeat triglyceride testing on a fasting specimen if clinically indicated. Edward et al. J. of Clin. Lipidol. 2015;9:129-169. LDL Cholesterol 161(H) mg/dL (calc) [facility] [employer] Comment: Reference range: <100 Desirable range <100 mg/dL for primary prevention; ?? <70 mg/dL for patients with CHD or diabetic patients with > or = 2 CHD risk factors. LDL-C is now calculated using the Sanjay calculation, which is a validated novel method providing better accuracy than the Friedewald equation in the estimation of LDL-C. Juarez CABALLERO et al. AMIRA. 2013;310(19): 6779-6485 (http://education.Lovin' Spoonfuls/faq/PPC924) Chol/HDLC Ratio 5.6(H) <5.0 (calc) [facility] Non-HDL Cholesterol 202(H) <130 mg/dL (calc) [facility] [employer] Comment: For patients with diabetes plus 1 major ASCVD risk factor, treating to a non-HDL-C goal of <100 mg/dL (LDL-C of <70 mg/dL) is considered a therapeutic option. Blood Venous blood specimen / Unknown 03/10/2022 8:51 AM EST 03/10/2022 8:51 AM EST Narrative [facility] - 03/13/2022 1:26 PM EST FASTING:YES FASTING: YES [facility] LAB BLOOD ORDERABLES Final Resul t [address], [place] [address] [facility] [employer] [address] [facility], (Nl[address]) [place] [address] * Colonoscopy (05/24/2020) [facility] Colonoscopy Normal Normal Historical Provider HEALTH MAINTENANCE Final Result * HEPATITIS C AB W/REFL TO HCV RNA, QN, PCR (01/09/2020 10:22 AM EST) [facility] HEPATITIS C ANTIBODY NON-REACT GIOVANNY NON-REACT GIOVANNY [facility] INDEX 0.02 <1.00 [facility] Comment: ?? HCV antibody was non-reactive. There is no laboratory ?? evidence of HCV infection. ?? In most cases, no further action is required. However, if recent HCV exposure is suspected, a test for HCV RNA (test code 17242) is suggested. ?? For additional information please refer to http://education.[employer]na [employer]rapeutics/faq/AKW93y6 (This link is being provided for informational/ educational purposes only.) ?? HEPATITIS C ANTIBODY NON-REACT GIOVANNY NON-REACT GIOVANNY [facility] INDEX 0.02 <1.00 [facility] Comment: ?? HCV antibody was non-reactive. There is no laboratory ?? evidence of HCV infection. ?? In most cases, no further action is required. However, if recent HCV exposure is suspected, a test for HCV RNA (test code 55934) is suggested. ?? For additional information please refer to http://[employer]/faq/OQV03l1 (This link is being provided for informational/ educational purposes only.) ?? HEPATITIS C ANTIBODY NON-REACT GIOVANNY NON-REACT GIOVANNY [facility] INDEX 0.02 <1.00 [facility] Comment: ?? HCV antibody was non-reactive. There is no laboratory ?? evidence of HCV infection. ?? In most cases, no further action is required. However, if recent HCV exposure is suspected, a test for HCV RNA (test code 66881) is suggested. ?? For additional information please refer to http://[employer]/faq/YLA47v5 (This link is being provided for informational/ educational purposes only.) ?? 01/09/2020 10:2 2 AM EST us Lizy Garcia ANP HISTORICAL/NON ORDERABLE LABS Fi nal Result [facility] [address] * HIV 1/2 ANTIGEN/ANTIBODY,FOURTH GENERATION W/RFL (01/09/2020 10:22 AM EST) HIV-1/2 ANTIGEN AND ANTIBODIES, 4TH GENERATION W/ REFLEX NON-REACT GIOVANNY NON-REACT GIOVANNY [facility] Comment: HIV-1 antigen and HIV-1/HIV-2 [...] ? For additional information please refer to http://[employer]/faq/TYL572 (This link is being provided for informational/ educational purposes only.) ? The performance of this assay has not been clinically validated in patients less than 2 years old. ?? HIV-1/2 ANTIGEN AND ANTIBODIES, 4TH GENERATION W/ REFLEX NON-REACT GIOVANNY NON-REACT GIOVANNY [facility] Comment: HIV-1 antigen and HIV-1/HIV-2 [...] ? For additional information please refer to http://Sociocast.Chegg/faq/ONJ135 (This link is being provided for informational/ educational purposes only.) ? The performance of this assay has not been clinically validated in patients less than 2 years old. ?? HIV-1/2 ANTIGEN AND ANTIBODIES, 4TH GENERATION W/ REFLEX NON-REACT GIOVANNY NON-REACT GIOVANNY [facility] Comment: HIV-1 antigen and HIV-1/HIV-2 [...] ? For additional information please refer to http://Socioc[employer].Chegg/faq/QLK696 (This link is being provided for informational/ educational purposes only.) ? The performance of this assay has not been clinically validated in patients less than 2 years old. ?? 01/09/2020 10:2 2 AM EST [facility] LAB BLOOD ORDERABLES Final Resul t [facility] [address] [place] [address], from Last 3 Months or Most Recently Relevant to Health Maintenance Insurance [employer] C[employer] MEDICAID STAND ADULT Care Teams Senior Contracts Manager Relationship Specialty Start Date End Date Lizy Garcia ANP [address] [place] [address] PCP - General Family Medicine 12/24/19 Shira Mack RN [address] [place] [address] Tuyere Fitter Family Medicine 03/27/24
--- OUTSIDE RECORDS SUMMARY | 2024-06-11 09:37 | XMS_ITS | Encounter Summary ---
Author Organization [facility] Address [address] [place] [address] [address] [place] [address] Care Team Providers Care Biology Adjunct Instructor Name Role Phone Lizy Garcia Primary Care Provider [phone] Shira Mack RN Unavailable [phone] Encounter Details Date Type Department Care Team (Latest Contact Info) Description 01/05/2021 Abstract [facility] CONVERSIONS Dental, Provider, DDS Social [...] Description 07/08/2024 2:15 PM EDT Office Visit [facility] MEDICINE [address] [place] [address] Lizy Garcia ANP [address] [place] [address] 09/04/2024 3:00 PM EDT Office Visit [facility] OPTOMETRY [address] [place] [address] Lulú Kat, OD [address] [place] [address] documented as of this encounter Visit Diagnoses Not on filedocumented in this encounter Care Teams Biology Adjunct Instructor Relationship Specialty Start Date End Date Lizy Garcia ANP [address] [place] [address] PCP - General Family Medicine 12/24/19 Shira Mack RN [address] [place] [address] Hris Manager Family Medicine 03/27/24 documented as of this encounter
--- OUTSIDE RECORDS SUMMARY | 2024-06-11 09:37 | XMS_ITS | Encounter Summary ---
Author Organization [employer] Address [address] [facility] [address]t [place] [address] Care Team Providers Care Bench Worker Binding Name Role Phone Lizy Garcia Primary Care Provider [phone] Shira Mack RN Unavailable [phone] Reason for Visit * Reason Comments Med Refill Encounter Details Date Type Department Care Team ([facility] st Contact Info) Description 05/13/2024 Refill [facility] [address] [place], [place] [phone] Taras Shrestha MD [address] [place], [place] [phone] Dermatophytosis Social History Tobacco Use Types Packs/Day [...] Description 07/08/2024 2:15 PM EDT Office Visit [facility] MEDIC[facility] [address] [place] [address] Lizy Garica ANP [address] [place] [address] 09/04/2024 3:00 PM EDT Office Visit [facility] OPTOMETRY [address] [place] [address] North, Lulú, OD [address] [place] [address] documented as of this encounter Visit Diagnoses Diagnosis Dermatophytosis Dermatophytosis of unspecified site documented in this encounter Additional Health Concerns Assessment Noted Time PHQ-9 Depression Total Score: 0 04/10/19 3:43 PM EST documented as of this encounter Care Teams Bench Worker Binding Relationship Specialty Start Date End Date Lizy Garcia ANP [address] [place] [address] PCP - General Family Medicine 12/24/19 Shira Mack RN [address] [place] [address] Signal System Testing Maintainer Family Medicine 03/27/24 documented as of this encounter
--- OUTSIDE RECORDS SUMMARY | 2024-06-11 09:38 | XMS_ITS | Encounter Summary ---
Author Organization [facility] Address [address] [place] [address] Care Team Providers Care Plant Accountant Name Role Phone Pcp, No Primary Care Provider Unavailabl e Encounter Details Date Type Department Care Team (Late st Contact Info) Description 05/25/2023 Scanned Document [facility] Surgery [place] [address] [facility] [place] [address] [place] [address] Mariam Rankin [place] [address] No [facility] [address] [place] [address] Social History Tobacco Use Types Packs/Day Years [...] on filedocumented in this encounter Care Teams Plant Accountant Relationship Specialty Start Date End Date Pcp, No PCP - General General Medicine 05/24/23 documented as of this encounter
== END 2024-06-11 09:38 | disposition home or self-care (01) ==
LOC: HO.HGS 09:01
PROVIDERS: PCP Nurse Practitioner Primary Care; Visit Provider Surgery
DX: K62.5 Hemorrhage of anus and rectum (principal)
CPT/HCPCS: 99204

== ENCOUNTER → 2024-06-11 09:01 | Outpatient (BNVA) | payer MEDICAID, SELFPAY | PROVIDERS: PCP Nurse Practitioner Primary Care; Visit Provider Surgery | DX: K62.5 Hemorrhage of anus and rectum (principal) | CPT/HCPCS: 99202 ==

== ENCOUNTER 2024-06-13 08:54 | Outpatient (AMB) | payer MEDICAID, SELFPAY ==
--- NOTE | 2024-06-13 08:56 | MHC.OFFVIS ---
Vital Signs 06/13/24 09:02 Height 5 ft 6 in Weight 170 lb BMI 27.4 BP 134/78 Blood Pressure Location Lt brachial Position Sitting Pulse 62 Pulse Source Pulse Oximeter Pulse Oximetry (%) 99 Oxygen Delivery Method Room Air Intake Visit Reasons: bleeding hemorrhoids~ colonoscopy Intake Note: ESTABLISHED PATIENT for 2 YR FUV. Discuss concerns pertaining to severe hemorrhoids. Recently saw Dr. Nunes Chief Complaint; C/O possible hemorrhoids; pt reports BRB per rectum, rectal pain and irritation. Pt denies any additional sx at this time. GERD well controlled with diet and PRN PPI. Butcher Helper Required: No Accompanied by: Self / Same As Patient Allergies No Known Allergies [No Known Allergies*] Allergy (Verified 06/13/24 08:59) HPI HPI bleeding hemorrhoids~ colonoscopy: Details: LAST VISIT: Screen for colon cancer Constipation Plan Will start patient on stool softener. Patient was that sometimes he will have constipation. Patient denies any issues with anesthesia in the past. No history of sleep apnea. Not on any anticoagulation medication. Patient denies any cardiac or respiratory symptoms. Patient will need to do better job prepping and finish all of his prep. The importance of clear liquid diet day before the procedure discussed with patient. Avoid foods high in fiber for 1 week before the procedure. With to expect before during and after the procedure discussed with patient. I will see patient in the office after the procedure, sooner on as needed basis. Patient is agreeable to this plan and verbalizes understanding of instructions. He was given the opportunity to ask questions and all questions answered. ? Thank you for allowing me to participate in his care Medications New polyethylene glycol 3350 (Miralax) As directed by gastroenterology department at [facility] 238 grams PO ONCE 238 grams 0RF Z12.11 bisacodyl (Dulcolax (bisacodyl)) Start taking 2 tablet every night 7 days before the procedure and 1 day before procedure take 4 tablets at noon time followed by MiraLax prep 10 mg (2 x 5 mg) PO BEDTIME 16 tabs 0RF Z12.11 docusate sodium 100 mg PO BEDTIME 90 caps 3RF K59.00 Discontinued bisacodyl take 2 tabs at noon the day before your colonoscopy Discontinued Reason: Patient no longer taking 10 mg (2 x 5 mg) PO ONCE 1 day 2 tabs 0RF Z12.11 TODAY'S VISIT: Patient is here today for request visit. Patient never had colonoscopy in 2022. That was supposed to be his follow-up colonoscopy due to suboptimal prep in 2020. Patient reports that he was unable to be an appointment due to his insurance change, however he is ready now. Patient reports occasional blood with bowel movements. Denies melena or weight loss. Patient reports that he is moving his bowels, however occasionally he has to strain. Previously took stool softeners with good results. Patient denies any issues with anesthesia. No history of sleep apnea. Not on any anticoagulation medication. Patient denies any cardiac or respiratory symptoms. [facility] Medical History GERD (gastroesophageal reflux disease) Elevated cholesterol Erectile dysfunction BPH (benign prostatic hyperplasia) Surgical History Hx of prostate biopsy H/O knee surgery H/O colonoscopy Family History Mother Advancing dementia Social History Household Members: Spouse Alcohol intake: current Alcohol intake frequency: holidays/special occasions only Alcohol type: beer Patient Tobacco Use Status: Never used Tobacco Review of Systems Const Denies weight gain and Denies weight loss ENT Reports no additional complaints, Denies dysphagia and Denies odynophagia Card Reports no additional complaints Resp Reports no additional complaints GI Denies abdominal pain, Denies belching, Denies melena, Denies bloating, Denies change in bowel habits, Reports constipation, Denies dysphagia, Denies excessive flatus, Denies dyspepsia, Denies heartburn, Denies diarrhea, Denies loose stools, Denies nausea, Denies odynophagia, Denies vomiting and Reports other (Hemorrhoids) Reports no additional complaints Musc Reports no additional complaints Neuro Reports no additional complaints Psych Reports no additional complaints Endo Reports no additional complaints Physical Exam Const General: healthy appearing, no acute distress and well developed Nutritional Appearance: well nourished Orientation/consciousness: patient oriented x3 Resp Effort & Inspection: normal respiratory effort, able to speak in complete sentences, no tracheal deviation and symmetric chest movement Auscultation: clear to auscultation bilaterally Cardio Rate: regular rate GI Inspection: Yes normal to inspection and No distended Palpation (GI): Soft to palpation, not firm, nontender and No hepatosplenomegaly present Auscultation: normal bowel sounds General: Yes no CVA tenderness Back/Spine/Pelvis Back: no CVA tenderness Skin General skin exam: elasticity normal, turgor normal and dry skin Neuro General: patient oriented x3 Psych Appearance: grossly normal Mental Status: mental status grossly normal Assessment & Plan Assessment & Plan (1) Anorectal hemorrhage: Code(s): K62.5 - Hemorrhage of anus and rectum Category: Surgical (2) Screen for colon cancer: Code(s): Z12.11 - Encounter for screening for malignant neoplasm of colon (3) Constipation: Code(s): K59.00 - Constipation, unspecified Qualifiers: Constipation type: slow transit constipation Qualified Code(s): K59.01 - Slow transit constipation Plan What to expect before during and after procedure discussed with patient. Stressed the importance of clear liquid diet and good bowel prep day before procedure. Patient will start taking Dulcolax 1 week before procedure daily. Is currently patient moves his bowels, however feels like occasionally he has to strain. Stool softeners and Anusol ordered. Message sent to Surgical schedules tubal procedure for patient. I will see him after the procedure, sooner on as needed basis Thank you for allowing me to participate in his care Medications: New bisacodyl (Dulcolax (bisacodyl)) Start taking 2 tablet every night 7 days before the procedure and 1 day before procedure take 4 tablets at noon time followed by MiraLax prep 10 mg (2 x 5 mg) PO BEDTIME 16 tabs 0RF Z12.11 - Encounter for screening for malignant neoplasm of colon polyethylene glycol 3350 (Miralax) As directed by gastroenterology department at [facility] 238 grams PO ONCE 238 grams 0RF Z12.11 - Encounter for screening for malignant neoplasm of colon hydrocortisone 2.5% (Anusol-HC) use as directed 1 appl ME BID-QID PRN 30 grams 3RF hemorrhoids K64.9 - Unspecified hemorrhoids docusate sodium 100 mg PO BEDTIME 90 caps 3RF K59.00 - Constipation, unspecified Coding Level of Care Code Est Pt Level 3 (61733) Diagnoses Anorectal hemorrhage K62.5 Screen for colon cancer Z12.11 Slow transit constipation K59.01 Constipation type: slow transit constipation Time Spent (min) 30 Comment 20 minutes spent with patient and additional 10 minutes spent reviewing his records he
[2024-06-13 09:02] VITALS: BP 134/78; PULSE 62; O2SAT 99; BMI 27.4
--- OUTSIDE RECORDS SUMMARY | 2024-06-13 09:19 | XMS_ITS | Encounter Summary ---
Author Organization [employer] Address [address] [place] [address] Care Team Providers Care Patient Advocate Name Role Phone Lizy Garcia Primary Care Provider [phone] Shira Mack RN Unavailable [phone] Reason for Visit * Reason Comments Med Refill Encounter Details Date Type Department Care Team ([facility] st Contact Info) Description 01/21/2023 Refill [facility] [address] [place], [place] [phone] Lizy Garcia ANP [address] [place], [place] [phone] GERD without esophagitis Social History Tobacco Use [...] Description 07/08/2024 2:15 PM EDT Office Visit [facility] [address] [place] [address] Lizy Garcia ANP [address] [place] [address] 09/04/2024 3:00 PM EDT Office Visit [facility] [address] [place] [address] North, Lulú, OD [address] [place] [address] documented as of this encounter Visit Diagnoses Diagnosis GERD without esophagitis Esophageal reflux documented in this encounter Care Teams Patient Advocate Relationship Specialty Start Date End Date Lizy Garcia ANP [address] [place] [address] PCP - General Family Medicine 12/24/19 Shira Mack, RN [address] [place] [address] Chain Splitter Family Medicine 03/27/24 documented as of this encounter
--- OUTSIDE RECORDS SUMMARY | 2024-06-13 09:19 | XMS_ITS | Encounter Summary ---
Author Organization [employer] Address [address] [facility] 7t [place] [address] Care Team Providers Care Pond Supervisor Name Role Phone Lizy Garcia Primary Care Provider [phone] Shira Mack RN Unavailable [phone] Reason for Visit * Reason Comments Med Refill Encounter Details Date Type Department Care Team ([facility] st Contact Info) Description 05/13/2024 Refill [facility] [address] [place], [place] [phone] Taras Shrestha MD [address] [place], [place] [phone] Dermatophytosis Social History Tobacco Use Types Packs/Day [...] Description 07/08/2024 2:15 PM EDT Office Visit [facility] [address] [place] [address] Lizy Garcia ANP [address] [place] [address] 09/04/2024 3:00 PM EDT Office Visit [facility] OPT[facility] [address] [place] [address] North, Lulú, OD [address] [place] [address] documented as of this encounter Visit Diagnoses Diagnosis Dermatophytosis Dermatophytosis of unspecified site documented in this encounter Additional Health Concerns Assessment Noted Time PHQ-9 Depression Total Score: 0 04/10/19 3:43 PM EST documented as of this encounter Care Teams Pond Supervisor Relationship Specialty Start Date End Date Lizy Garcia ANP [address] [place] [address] PCP - General Family Medicine 12/24/19 Shira Mack RN [address] [place] [address] Technology Advisor Family Medicine 03/27/24 documented as of this encounter
--- OUTSIDE RECORDS SUMMARY | 2024-06-13 09:19 | XMS_ITS | Clinical Summary ---
Author Organization [facility] Address [address] [place] [address] Care Team Providers Care Storage Wharfage Clerk Name Role Phone Pcp, No Primary Care [...] age to complete this topic Care Teams Storage Wharfage Clerk Relationship Specialty Start Date End Date Pcp, No PCP - General General Medicine 05/24/23
--- OUTSIDE RECORDS SUMMARY | 2024-06-13 09:19 | XMS_ITS | Encounter Summary ---
Author Organization [facility] Address [address] [place] [address] [address] [place] [address] Care Team Providers Care Race And Sports Book Writer Name Role Phone Lizy Garcia Primary Care Provider [phone] Shira Mack RN Unavailable [phone] Encounter Details Date Type Department Care Team (Latest Contact Info) Description 03/24/2019 Abstract [facility] CONVERSIONS Dental, Provider, DDS Social History [...] 07/08/2024 2:15 PM EDT Office Visit [facility] MEDICINE [address] [place] [address] Lizy Garcia ANP [address] [place] [address] 09/04/2024 3:00 PM EDT Office Visit [facility] OPTOMETRY [address] [place] [address] Lulú Kat, OD [address] [place] [address] documented as of this encounter Visit Diagnoses Not on filedocumented in this encounter Care Teams Race And Sports Book Writer Relationship Specialty Start Date End Date Lizy Garcia ANP [address] [place] [address] PCP - General Family Medicine 12/24/19 Shira Mack, BENY [address] [place] [address] Stationary Fireman Family Medicine 03/27/24 documented as of this encounter
--- OUTSIDE RECORDS SUMMARY | 2024-06-13 09:19 | XMS_ITS | Clinical Summary ---
Author Organization [employer] Address [address] [place] [address] 7t [place] [address] Care Team Providers Care System Technologist Name Role Phone Lizy Garcia Primary Care Provider [phone] Shira Mack RN Unavailable [phone] Allergies No known active allergies Medications [...] injectionIndicat ions:Hyperglycem ia due to diabetes mellitus ([facility]) Inject 10 Units under the skin Once daily. 3 mL 3 5 026 Active FREESTYLE LITE test stripIndications :Hyperglycemia due to diabetes mellitus ([facility]) Use to test blood sugar 3 times daily 100 each 12 5 026 Active Lancets miscIndications: Hyperglycemia due to diabetes mellitus ([facility]) Use to test blood sugar 3 times daily 100 each 5 Active Alcohol Swabs 70 % padsIndications: Hyperglycemia due to diabetes mellitus ([facility]) Use to clean skin before checking blood sugar 100 each 11 5 Active Blood Glucose Monitoring Suppl (FreeStyle [place] Lite) w/Device kitIndications:H yperglycemia due to diabetes mellitus ([facility]) Use to test blood sugar 3 times [...] each 12 5 026 Active Continuous Glucose Cut Out Machine Operator (FreeStyle Jey 2 [place]) deviceIndication s:New onset type 2 diabetes mellitus [...] DEPARTMENT Provider, Generic External Data 05/13/2024 Refill [facility] [address] [place] [address] Taras Shrestha MD Dermatophytosis 05/09/2024 Population Health Risk Score [facility] () Department [address] [place] [phone] Provider, Population Health Generic 04/25/2024 Telephone [facility] [address] [place] [address] Shira Mack, RN RN DSMES Outreach 04/18/2024 3:00 PM EST Clinical Support [facility] [address] [place] [address] Shira Mack, RN New onset type 2 diabetes mellitus ([facility]/HCC) 04/18/2024 Refill [facility] [address] [place] [address] Shira Mack, RN Hyperglycemia due to diabetes mellitus (CMS/HCC) 04/10/2024 2:30 PM EST Office Visit [address] [address] Lizy Garcia ANP Hyperglycemia due to diabetes mellitus (CMS/HCC) (Primary Dx); Malignant tumor of prostate (CMS/HCC); Dyslipidemia; Dermatophytosis; Constipation, unspecified constipation type; Acute right-sided low back pain without sciatica 04/10/2024 Travel 04/03/[address] [address] Shira Mack, RN RN DSMES F/U 03/31/[address] [address] Lizy Garcia ANP New onset type 2 diabetes mellitus (CMS/HCC) 03/27/2024 3:00 PM EST Clinical Support [address] [address] Shira Mack RN New onset type 2 diabetes mellitus ([facility]/HCC) 03/27/2024 Travel 03/19/[address] [address] Shira Mack, mcat instructor Question from Last 3 Months Immunizations Name [...] Description 07/08/2024 2:15 PM EDT Office Visit [facility] [address] [place] [address] Lizy Garcia ANP [address] [place] [address] 09/04/2024 3:00 PM EDT Office Visit [facility] OPTOMETRY [address] [place] [address] Lulú Kat, OD [address] [place] [address] Health Maintenance Due Date Last Done Comments [...] (Free>4and<10) 14.36(H ) 0.00 - 4.00 ng/mL [facility] Comment:A Free PSA was not [...] Provider LAB BLOOD ORDERAB LES Final Result [facility] [address] [place] [phone] * POCT Glucose (04/18/2024 9:43 AM EST) Only the most recent of3 resultswithin the time period is included. Glucose Blood, POC 146 60 - 200 mg/dL QC Media Lot # [id number] Lot# Expiration Date 165,589 Blood Capillary blood specimen / Unknown 04/18/2024 9:43 AM EST [facility] POINT OF CARE TEST ENTER/EDIT OR DERABLES Final Result * (ABNORMAL) POCT HGB A1C (04/10/2024 3:46 PM EST) [facility] Hemoglobin A1C 10.1(A) 4.0 - 6.0 % QC Media Lot # [id number] Lot# Expiration Date 660 Blood 04/10/2024 3:46 PM EST [facility] ANP POINT OF CARE TEST ENTER/EDIT OR DERABLES Final Result * (ABNORMAL) Lipid Panel, Standard (03/10/2022 8:51 AM EST) [facility] Cholesterol, Total 246(H) <200 mg/dL [facility] HDL Cholesterol 44 > OR = 40 mg/dL Targeted Growth Triglycerides 242(H) <150 mg/dL [facility] Comment: If a non-fasting specimen was collected, consider repeat triglyceride testing on a fasting specimen if clinically indicated. Edward et al. J. of Clin. Lipidol. 2015;9:129-169. LDL Cholesterol 161(H) mg/dL (calc) [facility] Comment: Reference range: <100 Desirable range <100 mg/dL for primary prevention; ?? <70 mg/dL for patients with CHD or diabetic patients with > or = 2 CHD risk factors. LDL-C is now calculated using the Sanjay calculation, which is a validated novel method providing better accuracy than the Friedewald equation in the estimation of LDL-C. Juarez CABALLERO et al. AMIRA. 2013;310(19): 7751-5833 (http://education.Smart Device Media/faq/PSW744) Chol/HDLC Ratio 5.6(H) <5.0 (calc) [facility] Non-HDL Cholesterol 202(H) <130 mg/dL (calc) [facility] Comment: For patients with diabetes plus 1 major ASCVD risk factor, treating to a non-HDL-C goal of <100 mg/dL (LDL-C of <70 mg/dL) is considered a therapeutic option. Blood Venous blood specimen / Unknown 03/10/2022 8:51 AM EST 03/10/2022 8:51 AM EST Narrative [facility] - 03/13/2022 1:26 PM EST FASTING:YES FASTING: YES [facility] LAB BLOOD ORDERABLES Final Resul t [address], [place] [address] [facility] [address] [facility], (Nl[address]) [place] [address] * Colonoscopy (05/24/2020) [facility] Colonoscopy Normal Normal Historical Provider HEALTH MAINTENANCE Final Result * HEPATITIS C AB W/REFL TO HCV RNA, QN, PCR (01/09/2020 10:22 AM EST) [facility] HEPATITIS C ANTIBODY NON-REACT GIOVANNY NON-REACT GIOVANNY [facility] INDEX 0.02 <1.00 [facility] Comment: ?? HCV antibody was non-reactive. There is no laboratory ?? evidence of HCV infection. ?? In most cases, no further action is required. However, if recent HCV exposure is suspected, a test for HCV RNA (test code 36356) is suggested. ?? For additional information please refer to http://education.UXPin.Diablo Technologies/faq/SMU41x4 (This link is being provided for informational/ educational purposes only.) ?? HEPATITIS C ANTIBODY NON-REACT GIOVANNY NON-REACT GIOVANNY [facility] INDEX 0.02 <1.00 [facility] Comment: ?? HCV antibody was non-reactive. There is no laboratory ?? evidence of HCV infection. ?? In most cases, no further action is required. However, if recent HCV exposure is suspected, a test for HCV RNA (test code 43668) is suggested. ?? For additional information please refer to http://115 network disks/faq/KSY45r1 (This link is being provided for informational/ educational purposes only.) ?? HEPATITIS C ANTIBODY NON-REACT GIOVANNY NON-REACT GIOVANNY [facility] INDEX 0.02 <1.00 [facility] Comment: ?? HCV antibody was non-reactive. There is no laboratory ?? evidence of HCV infection. ?? In most cases, no further action is required. However, if recent HCV exposure is suspected, a test for HCV RNA (test code 50839) is suggested. ?? For additional information please refer to http://115 network disks/faq/PAK85g5 (This link is being provided for informational/ educational purposes only.) ?? 01/09/2020 10:2 2 AM EST us Lizy Garcia ANP HISTORICAL/NON ORDERABLE LABS Fi nal Result [facility] [address] * HIV 1/2 ANTIGEN/ANTIBODY,FOURTH GENERATION W/RFL (01/09/2020 10:22 AM EST) HIV-1/2 ANTIGEN AND ANTIBODIES, 4TH GENERATION W/ REFLEX NON-REACT GIOVANNY NON-REACT GIOVANNY [facility] Comment: HIV-1 antigen and HIV-1/HIV-2 [...] ? For additional information please refer to http://115 network disks/faq/LQU285 (This link is being provided for informational/ educational purposes only.) ? The performance of this assay has not been clinically validated in patients less than 2 years old. ?? HIV-1/2 ANTIGEN AND ANTIBODIES, 4TH GENERATION W/ REFLEX NON-REACT GIOVANNY NON-REACT GIOVANNY [facility] Comment: HIV-1 antigen and HIV-1/HIV-2 [...] ? For additional information please refer to http://Readyforce.MovableInk/faq/TIC067 (This link is being provided for informational/ educational purposes only.) ? The performance of this assay has not been clinically validated in patients less than 2 years old. ?? HIV-1/2 ANTIGEN AND ANTIBODIES, 4TH GENERATION W/ REFLEX NON-REACT GIOVANNY NON-REACT GIOVANNY [facility] Comment: HIV-1 antigen and HIV-1/HIV-2 [...] ? For additional information please refer to http://Readyforce.MovableInk/faq/KLU455 (This link is being provided for informational/ educational purposes only.) ? The performance of this assay has not been clinically validated in patients less than 2 years old. ?? 01/09/2020 10:2 2 AM EST [facility] LAB BLOOD ORDERABLES Final Resul t [facility] [address] [place] [address], from Last 3 Months or Most Recently Relevant to Health Maintenance Insurance [facility] C3 DENTAL-[facility] MEDICAID STAND ADULT Care Teams System Technologist Relationship Specialty Start Date End Date Lizy Garcia ANP [address] [place] [address] PCP - General Family Medicine 12/24/19 Shira Mack RN [address] [place] [address] Renovation Plant Supervisor Family Medicine 03/27/24
--- OUTSIDE RECORDS SUMMARY | 2024-06-13 09:19 | XMS_ITS | Encounter Summary ---
Author Organization [facility] Address [address] [place] [address] [address] [place] [address] Care Team Providers Care Karate Instructor Name Role Phone Lizy Garcia Primary Care Provider [phone] Shira Mack RN Unavailable [phone] Encounter Details Date Type Department Care Team (Latest Contact Info) Description 01/05/2021 Abstract [facility] CONVERSIONS Dental, Provider, DDS Social History [...] 07/08/2024 2:15 PM EDT Office Visit [facility] MEDICINE [address] [place] [address] Lizy Garcia ANP [address] [place] [address] 09/04/2024 3:00 PM EDT Office Visit [facility] OPTOMETRY [address] [place] [address] Lulú Kat, OD [address] [place] [address] documented as of this encounter Visit Diagnoses Not on filedocumented in this encounter Care Teams Karate Instructor Relationship Specialty Start Date End Date Lizy Garcia ANP [address] [place] [address] PCP - General Family Medicine 12/24/19 Shira Mack RN [address] [place] [address] Mill Hand Family Medicine 03/27/24 documented as of this encounter
--- OUTSIDE RECORDS SUMMARY | 2024-06-13 09:19 | XMS_ITS | Encounter Summary ---
Author Organization [facility] Address [address] [place] [address] Care Team Providers Care Balance Recesser Name Role Phone Pcp, No Primary Care Provider Unavailabl e Encounter Details Date Type Department Care Team (Late st Contact Info) Description 05/25/2023 Scanned Document [facility] Urologic Surgery [place] [address] [facility] [address] [place] [address] Mariam Rankin [place] 201 No [facility] [address] [place] [address] Social History Tobacco Use Types Packs/Day Years [...] on filedocumented in this encounter Care Teams Balance Recesser Relationship Specialty Start Date End Date Pcp, No PCP - General General Medicine 05/24/23 documented as of this encounter
== END 2024-06-13 09:19 | disposition home or self-care (01) ==
LOC: HO.HGI 08:55
PROVIDERS: PCP Nurse Practitioner Primary Care; Visit Provider Nurse Practitioner Family
DX: K62.5 Hemorrhage of anus and rectum (principal); K59.01 Slow transit constipation; Z12.11 Encounter for screening for malignant neoplasm of colon
CPT/HCPCS: 99212

== ENCOUNTER → 2024-06-13 08:54 | Outpatient (BNVA) | payer MEDICAID, SELFPAY | PROVIDERS: PCP Nurse Practitioner Primary Care; Visit Provider Nurse Practitioner Family | DX: K21.9 Gastro-esophageal reflux disease without esophagitis (principal); K64.9 Unspecified hemorrhoids; K62.5 Hemorrhage of anus and rectum; K59.01 Slow transit constipation | CPT/HCPCS: 99212 ==

== ENCOUNTER → 2024-07-07 09:12 | Outpatient (BNV) | payer MEDICAID, SELFPAY | PROVIDERS: PCP Nurse Practitioner Primary Care; Visit Provider Radiology Diagnostic Radiology | DX: R97.20 Elevated prostate specific antigen [PSA] (principal) | CPT/HCPCS: 72197 ==

== ENCOUNTER 2024-07-07 09:16 | Outpatient (REF) | payer MEDICAID, SELFPAY ==
--- NOTE | ~2024-07-07 | XR_ITS ---
EXAMINATION: XR SCREENING FILM FOR MR HISTORY: PRE MRI, R/O METAL IN EYES AND LT HAND/THUMB COMPARISON: There are no prior studies for comparison. FINDINGS: Three views of the orbits and 3 views of the left hand demonstrate no radiopaque foreign body. The joint spaces of the hand are maintained. The visualized paranasal sinuses are clear. XR/XR pre mri screening IMPRESSION: No radiopaque foreign body is identified in the orbits or left hand. Electronically signed by: Mars Corrales MD 07/07/2024 09:47 AM EDT
--- NOTE | ~2024-07-07 | MR_ITS ---
EXAMINATION: MRI prostate without and with contrast. HISTORY: Elevated PSA TECHNIQUE: 1.5T body coil survey of the pelvis was performed. Phase array coil imaging of the prostate was performed in multiplanar high resolution axial, coronal, sagittal fast spin echo T2 and axial T1 weighted imaging sequences. Axial diffusion imaging at intermediate and high field performed with ADC mapping. Next, 10 mL Gadavist was given by intravenous infusion, and dynamic axial imaging performed. COMPARISON: There are no prior studies for comparison. CLINICAL DATA: Most recent PSA: 14.36 ng/mL PSA Density: 0.55 ng/mL squared Prostate Biopsy: None FINDINGS: Prostate size: 2.93 x 4.69 x 3.62 cm. Calculated prostate volume is 25.86 ML. Hemorrhage: None. Transitional Zone: Heterogeneous nodules but no focal increased T2 signal. Large heterogeneous nodule with capsule in the left apex to mid segment measures 2.3 x 1.9 x 1.2 cm. Peripheral Zone: T2: Focal increased T2 signal right mid zone with corresponding decreased signal on ADC map, slightly heterogenous. PI-RADS: 3 Diffusion: Focal patchy increased diffusion in the right peripheral zone along the mid segment 2 apex. PI-RADS: 5. DEI: Diffuse mild enhancement throughout the prostate. PI-RADS: 3 Seminal Vesicles/Ejaculatory Ducts: Symmetric and normal in signal and caliber. Pelvic Lymph Nodes: No obturator or internal iliac lymph nodes meeting size criteria for adenopathy. Marrow Signal: Normal marrow signal and enhancement without focal lesion identified. MR/MR Prostate wo/w con IMPRESSION: Right peripheral zone mid to. PI-RADS 5: Very high (clinically significant cancer is highly likely to be present) PI-RADS Assessment Categories PI-RADS 1: Very low (clinically significant cancer is highly unlikely to be present) PI-RADS 2: Low (clinically significant cancer is unlikely to be present) PI-RADS 3: Intermediate (the presence of clinically significant cancer is equivocal) PI-RADS 4: High (clinically significant cancer is likely to be present) PI-RADS 5: Very high (clinically significant cancer is highly likely to be present) [employer]. MR Prostate Imaging Reporting and Data System version 2.1. http://www.acr.org/Quality-Safety/Resources/PIRADS/ Electronically signed by: Clive Romero MD 07/07/2024 04:09 PM EDT
--- OUTSIDE RECORDS SUMMARY | 2024-07-07 09:24 | XMS_ITS | Encounter Summary ---
Author Organization [facility] Address [address] [place] [address] Care Team Providers Care Faculty Member Name Role Phone Pcp, No Primary Care Provider Unavailabl e Encounter Details Date Type Department Care Team (Late st Contact Info) Description 05/25/2023 Scanned Document [facility] Urologic Surgery [place] [address] [facility] [address] [place] [address] Mariam Rankin [place] 201 No [facility] [address] [place] [address] Social History Tobacco Use Types Packs/Day Years [...] on filedocumented in this encounter Care Teams Faculty Member Relationship Specialty Start Date End Date Pcp, No PCP - General General Medicine 05/24/23 documented as of this encounter
--- OUTSIDE RECORDS SUMMARY | 2024-07-07 09:24 | XMS_ITS | Encounter Summary ---
Author Organization [employer] Address [address] [facility] [address] [place] [address] Care Team Providers Care Caretaker Grounds Name Role Phone Lizy Garcia Primary Care Provider [phone] Shira Mack RN Unavailable [phone] Reason for Visit * Reason Comments Med Refill Encounter Details Date Type Department Care Team ([facility] st Contact Info) Description 05/13/2024 Refill [facility] 230 [place], [place] [phone] Taras Shrestha MD [address] [place], [place] [phone] Dermatophytosis Social History Tobacco Use Types Packs/Day [...] Office Visit [facility] MEDICINE [address] [place] [address] Lizy Garcia ANP [address] [place] [address] 09/04/2024 3:00 PM EDT Office Visit [facility] OPTOMETRY [address] [place] [address] North, Lulú, OD 230 [place] [address] documented as of this encounter Visit Diagnoses Diagnosis Dermatophytosis Dermatophytosis of unspecified site documented in this encounter Additional Health Concerns Assessment Noted Time PHQ-9 Depression Total Score: 0 04/10/19 3:43 PM EST documented as of this encounter Care Teams Caretaker Grounds Relationship Specialty Start Date End Date Lizy Garcia ANP [address] [place] [address] PCP - General Family Medicine 12/24/19 Shira Mack, RN [address] [place] [address] Crop Duster Helper Family Medicine 03/27/24 documented as of this encounter
--- OUTSIDE RECORDS SUMMARY | 2024-07-07 09:24 | XMS_ITS | Clinical Summary ---
Author Organization [employer] Address [address] [facility] 7t [place] [address] Care Team Providers Care Firefighter Marine Name Role Phone Lizy Garcia Primary Care Provider [phone] Shira Mack RN Unavailable [phone] Allergies No known active allergies Medications [...] due to diabetes mellitus ([facility]) Inject 10 Units under the skin Once daily. 3 mL 3 5 026 Active FREESTYLE LITE test stripIndications :Hyperglycemia due to diabetes mellitus ([facility]) Use to test blood sugar 3 times daily 100 each 12 5 026 Active Lancets miscIndications: Hyperglycemia due to diabetes mellitus ([facility]) Use to test blood sugar 3 times daily 100 each 5 Active Alcohol Swabs 70 % padsIndications: Hyperglycemia due to diabetes mellitus ([facility]) Use to clean skin before checking blood sugar 100 each 11 5 Active Blood Glucose Monitoring Suppl (FreeStyle [place] Lite) w/Device kitIndications:H yperglycemia due to diabetes mellitus ([facility]) Use to test blood sugar 3 [...] each 12 5 026 Active Continuous Glucose Supervisor [place] (FreeStyle Jey 2 [place]) deviceIndication s:New onset type 2 diabetes mellitus [...] with tresiba once daily 100 each 12 02/21/ 026 Active Active Problems Problem Noted Date [...] DEPARTMENT Provider, Generic External Data 05/13/2024 Refill [facility] [address] [place] [address] Taras Shrestha MD Dermatophytosis 05/09/2024 Population Health Risk Score [facility] () Department [address] [place] [phone] Provider, Population Health Generic 04/25/2024 Telephone [facility] [address] [place] [phone] Shira Mack, RN RN DSMES Outreach 04/18/2024 3:00 PM EST Clinical Support [address] [address] Shira Mack, RN New onset type 2 diabetes mellitus ([facility]/HCC) 04/18/2024 Refill [facility] [address] [place] [address] Shira Mack, RN Hyperglycemia due to diabetes mellitus (CMS/HCC) 04/10/2024 2:30 PM EST Office Visit [facility] [address] [place] [address] Lizy Garcia ANP Hyperglycemia due to diabetes mellitus (CMS/HCC) (Primary Dx); Malignant tumor of prostate (CMS/HCC); Dyslipidemia; Dermatophytosis; Constipation, unspecified constipation type; Acute right-sided low back pain without sciatica 04/10/2024 Travel from Last 3 Months Immunizations Name [...] Description 07/08/2024 2:15 PM EDT Office Visit [facility] [address] [place] [address] Lizy Garcia, MARY [address] [place] [address] 09/04/2024 3:00 PM EDT Office Visit [facility] [address] [place] [address] Lulú Kat, OD [address] [place] [address] Health Maintenance Due Date Last Done Comments [...] EST Hyperglycemia due to diabetes mellitus (CMS/HCC) Full PROPHYLAXIS - ADULT [...] (Free>4and<10) 14.36(H ) 0.00 - 4.00 ng/mL [facility] Comment:A Free PSA was not p [...] 9:15 AM EDT 05/23/2024 9:15 AM EDT [employer] External Data Provider LAB BLOOD ORDERAB LES Final Result [facility] [address] [place] [phone] * POCT Glucose (04/18/2024 9:43 AM EST) Only the most recent of2 resultswithin the time period is included. Glucose Blood, POC 146 60 - 200 mg/dL QC Media Lot # [id number] Lot# Expiration Date Blood Capillary blood specimen / Unknown 04/18/2024 9:43 AM EST Lizy HERNANDEZ POINT OF CARE TEST ENTER/EDIT OR DERABLES Final Result * (ABNORMAL) POCT HGB A1C (04/10/2024 3:46 PM EST) Hemoglobin A1C 10.1(A) 4.0 - 6.0 % QC Media Lot # [id number] Lot# Expiration Date Blood 04/10/2024 3:46 PM EST Lizy Garcia [facility] POINT OF CARE TEST ENTER/EDIT OR DERABLES Final Result * (ABNORMAL) Lipid Panel, Standard (03/10/2022 8:51 AM EST) Cholesterol, Total 246(H) <200 mg/dL [facility] [place] [facility] HDL Cholesterol 44 > OR = 40 mg/dL [facility] [place] [facility] Triglycerides 242(H) <150 mg/dL [facility] [place] [facility] [facility] Comment: If a non-fasting specimen was collected, consider repeat triglyceride testing on a fasting specimen if clinically indicated. Edward et al. J. of Clin. Lipidol. 2015;9:129-169. LDL Cholesterol 161(H) mg/dL (calc) [facility] [place] [facility] Comment: Reference range: <100 Desirable range <100 mg/dL for primary prevention; ?? <70 mg/dL for patients with CHD or diabetic patients with > or = 2 CHD risk factors. LDL-C is now calculated using the Juarez-Debby calculation, which is a validated novel method providing better accuracy than the Friedewald equation in the estimation of LDL-C. Juarez SS et al. AMIRA. 2013;310(19): 9894-9510 (http://education.GAP Miners/faq/RLF493) Chol/HDLC Ratio 5.6(H) <5.0 (calc) [facility] [place] [facility] Non-HDL Cholesterol 202(H) <130 mg/dL (calc) [facility] [place] [facility] Comment: For patients with diabetes plus 1 major ASCVD risk factor, treating to a non-HDL-C goal of <100 mg/dL (LDL-C of <70 mg/dL) is considered a therapeutic option. Blood Venous blood specimen / Unknown 03/10/2022 8:51 AM EST 03/10/2022 8:51 AM EST Narrative [facility] - 03/13/2022 1:26 PM EST FASTING:YES FASTING: YES [facility] LAB BLOOD ORDERABLES Final Resul t [facility] [address] [facility] [place] [address] [facility] [place] [facility] [address] [facility], ([address]) [place] [address] * Hm Colonoscopy (05/24/2020) Colonoscopy Normal Normal us Historical Provider HEALTH MAINTENANCE Final Result * HEPATITIS C AB W/REFL TO HCV RNA, QN, PCR (01/09/2020 10:22 AM EST) HEPATITIS C ANTIBODY NON-REACT [facility] NON-REACT [facility] INDEX 0.02 <1.00 [facility] Comment: ?? HCV antibody was non-reactive. There is no laboratory ?? evidence of HCV infection. ?? In most cases, no further action is required. However, if recent HCV exposure is suspected, a test for HCV RNA (test code 29010) is suggested. ?? For additional information please refer to http://Exos/faq/RBJ63j2 (This link is being provided for informational/ educational purposes only.) ?? HEPATITIS C ANTIBODY NON-REACT [facility]NY NON-REACT [facility] INDEX 0.02 <1.00 [facility] Comment: ?? HCV antibody was non-reactive. There is no laboratory ?? evidence of HCV infection. ?? In most cases, no further action is required. However, if recent HCV exposure is suspected, a test for HCV RNA (test code 88833) is suggested. ?? For additional information please refer to http://Exos/faq/XUL15w5 (This link is being provided for informational/ educational purposes only.) ?? HEPATITIS C ANTIBODY NON-REACT [facility]NY NON-REACT [facility] INDEX 0.02 <1.00 [facility] Comment: ?? HCV antibody was non-reactive. There is no laboratory ?? evidence of HCV infection. ?? In most cases, no further action is required. However, if recent HCV exposure is suspected, a test for HCV RNA (test code 35752) is suggested. ?? For additional information please refer to http://Exos/faq/ILG25r8 (This link is being provided for informational/ educational purposes only.) ?? 01/09/2020 10:2 2 AM EST us Lizy Radha ANP HISTORICAL/NON ORDERABLE LABS Fi nal Result [facility] [address] * HIV 1/2 ANTIGEN/ANTIBODY,FOURTH GENERATION W/RFL (01/09/2020 10:22 AM EST) HIV-1/2 ANTIGEN AND ANTIBODIES, 4TH GENERATION W/ REFLEX NON-REACT [facility] NON-REACT [facility] Comment: HIV-1 antigen and HIV-1/HIV-2 [...] ? For additional information please refer to http://RenovoRx.Brainiac TV/faq/UVV559 (This link is being provided for informational/ educational purposes only.) ? The performance of this assay has not been clinically validated in patients less than 2 years old. ?? HIV-1/2 ANTIGEN AND ANTIBODIES, 4TH GENERATION W/ REFLEX NON-REACT [facility]NY NON-REACT [facility] Comment: HIV-1 antigen and HIV-1/HIV-2 [...] ? For additional information please refer to http://RenovoRx.Brainiac TV/faq/HNR238 (This link is being provided for informational/ educational purposes only.) ? The performance of this assay has not been clinically validated in patients less than 2 years old. ?? HIV-1/2 ANTIGEN AND ANTIBODIES, 4TH GENERATION W/ REFLEX NON-REACT [facility]NY NON-REACT [facility]NY [facility] Comment: HIV-1 antigen and HIV-1/HIV-2 [...] ? For additional information please refer to http://education.Brainiac TV/faq/KBI775 (This link is being provided for informational/ educational purposes only.) ? The performance of this assay has not been clinically validated in patients less than 2 years old. ?? 01/09/2020 10:2 2 AM EST [facility] LAB BLOOD ORDERABLES Final Resul t [facility] [address] from Last 3 Months or Most Recently Relevant to Health Maintenance Insurance [facility] C3 [place] AD[place] Care Teams Firefighter Marine Relationship Specialty Start Date End Date Lizy Garcia ANP [address] [place] [address] PCP - General Family Medicine 12/24/19 Shira Mack, BENY [address] [place] [address] Waste Salvager Family Medicine 03/27/24
--- OUTSIDE RECORDS SUMMARY | 2024-07-07 09:24 | XMS_ITS | Encounter Summary ---
Author Organization [facility] Address [address] [facility] 7t [place] [address] Care Team Providers Care Necktie Turner Name Role Phone Lizy Garcia Primary Care Provider [phone] Shira Mack RN Unavailable [phone] Encounter Details Date Type Department Care Team (Latest Contact Info) Description 03/24/2019 Abstract [facility] CONVERSIONS Dental, Provider, DDS Social [...] Description 07/08/2024 2:15 PM EDT Office Visit [facility] [address] [place] [address] Lizy Garcia ANP [address] [place] [address] 09/04/2024 3:00 PM EDT Office Visit [facility] [address] [place] [address] Lulú Kat, OD [address] [place] [address] documented as of this encounter Visit Diagnoses Not on filedocumented in this encounter Care Teams Necktie Turner Relationship Specialty Start Date End Date Lizy Garcia ANP [address] [place] [address] PCP - General Family Medicine 12/24/19 Shira Mack RN [address] [place] [address] Photographer'S Model Family Medicine 03/27/24 documented as of this encounter
--- OUTSIDE RECORDS SUMMARY | 2024-07-07 09:24 | XMS_ITS | Encounter Summary ---
Author Organization [facility] Address [address] [facility] 7t [place] [address] Care Team Providers Care Weatherization Administrator Name Role Phone Lizy Garcia Primary Care Provider [phone] Shira Mack RN Unavailable [phone] Encounter Details Date Type Department Care Team (Latest Contact Info) Description 01/05/2021 Abstract [facility] CONVERSIONS Dental, Provider, DDS Social History Tobacco [...] 07/08/2024 2:15 PM EDT Office Visit [facility] [address] [place] [address] Lizy Garcia ANP [address] [place] [address] 09/04/2024 3:00 PM EDT Office Visit [facility] [address] [place] [address] Lulú Kat, OD [address] [place] [address] documented as of this encounter Visit Diagnoses Not on filedocumented in this encounter Care Teams Weatherization Administrator Relationship Specialty Start Date End Date Lizy Garcia ANP [address] [place] [address] PCP - General Family Medicine 12/24/19 Shira Mack, BENY [address] [place] [address] Horticultural Farmer Family Medicine 03/27/24 documented as of this encounter
--- OUTSIDE RECORDS SUMMARY | 2024-07-07 09:24 | XMS_ITS | Clinical Summary ---
Author Organization [facility] Address [address] [place] [address] Care Team Providers Care Nurse Navigator Name Role Phone Pcp, No Primary Care [...] age to complete this topic Care Teams Nurse Navigator Relationship Specialty Start Date End Date Pcp, Cheri PCP - General General Medicine 05/24/23
--- OUTSIDE RECORDS SUMMARY | 2024-07-07 09:24 | XMS_ITS | Encounter Summary ---
Author Organization [employer] Address [address] 7[address] [place] [address] Care Team Providers Care Staffing Recruiter Name Role Phone Lizy Garcia Primary Care Provider [phone] Shira Mack RN Unavailable [phone] Reason for Visit * Reason Comments Med Refill Encounter Details Date Type Department Care Team ([facility] st Contact Info) Description 01/21/2023 Refill [facility] MEDICINE [address] [place], [place] [phone] Lizy Garcia ANP [address] [place], [place] [phone] GERD without esophagitis Social History Tobacco Use [...] 07/08/2024 2:15 PM EDT Office Visit [facility] MEDICINE [address] [place] [address] Lizy Garcia ANP [address] [place] [address] 09/04/2024 3:00 PM EDT Office Visit [facility] OPTOMETRY [address] [place] [address] North, Lulú, OD [address] [place] [address] documented as of this encounter Visit Diagnoses Diagnosis GERD without esophagitis Esophageal reflux documented in this encounter Care Teams Staffing Recruiter Relationship Specialty Start Date End Date Lizy Garcia ANP [address] [place] [address] PCP - General Family Medicine 12/24/19 Shira Mack, BENY [address] [place] [address] Costume Specialist Family Medicine 03/27/24 documented as of this encounter
[2024-07-07] MEDS: gadobutroL 10 ML VIAL IVPUSH (11:18)
== END 2024-07-07 09:17 | disposition home or self-care (01) ==
LOC: HO.MRI 09:16
PROVIDERS: PCP Nurse Practitioner Primary Care; Visit Provider Urology
DX: C61 Malignant neoplasm of prostate (principal)
CPT/HCPCS: 72197; A9585

== ENCOUNTER 2024-07-23 08:06 | Day surgery (SDC) | payer MEDICAID, SELFPAY ==
--- OUTSIDE RECORDS SUMMARY | 2024-06-18 12:04 | XMS_ITS | Encounter Summary ---
Author Organization [facility] Address [address] [place] [address] Care Team Providers Care Divorce Attorney Name Role Phone Pcp, No Primary Care Provider Unavailabl e Encounter Details Date Type Department Care Team (Late st Contact Info) Description 05/25/2023 Scanned Document [facility] Urologic Surgery [place] [address] [facility] [address] [place] [address] Mariam Rankin [place] 201 No [facility] [address] [place] [address] Social History Tobacco Use Types Packs/Day Years [...] on filedocumented in this encounter Care Teams Divorce Attorney Relationship Specialty Start Date End Date Pcp, No PCP - General General Medicine 05/24/23 documented as of this encounter
--- OUTSIDE RECORDS SUMMARY | 2024-06-18 12:04 | XMS_ITS | Clinical Summary ---
Author Organization [facility] Address [address] [place] [address] Care Team Providers Care Flight Radio Officer Name Role Phone Pcp, No Primary Care [...] age to complete this topic Care Teams Flight Radio Officer Relationship Specialty Start Date End Date Pcp, No PCP - General General Medicine 05/24/23
--- OUTSIDE RECORDS SUMMARY | 2024-06-18 12:04 | XMS_ITS | Encounter Summary ---
Author Organization [facility] Address [address] [place] [address] 7 [place] [address] Care Team Providers Care Crop Or Grain Farmer Name Role Phone Lizy Garcia Primary Care Provider [phone] Shira Mack RN Unavailable [phone] Encounter Details Date Type Department Care Team (Latest Contact Info) Description 01/05/2021 Abstract [facility] CONVERSIONS Dental, Provider, DDS Social History [...] Description 07/08/2024 2:15 PM EDT Office Visit [facility] MEDICINE [address] [place] [address] Lizy Garcia ANP [address] [place] [address] 09/04/2024 3:00 PM EDT Office Visit [facility] OPTOMETRY [address] [place] [address] Lulú Kat, OD 230 [place] [address] documented as of this encounter Visit Diagnoses Not on filedocumented in this encounter Care Teams Crop Or Grain Farmer Relationship Specialty Start Date End Date Lizy Garcia ANP [address] [place] [address] PCP - General Family Medicine 12/24/19 Shira Mack RN [address] [place] [address] Metal Mold Dresser Family Medicine 03/27/24 documented as of this encounter
--- OUTSIDE RECORDS SUMMARY | 2024-06-18 12:04 | XMS_ITS | Clinical Summary ---
Author Organization [employer] Address [address] [place] [address] 7t [place] [address] Care Team Providers Care Staple Laster Name Role Phone Lizy Garcia Primary Care Provider [phone] Shira Mack RN Unavailable [phone] Allergies No known active allergies Medications [...] injectionIndicat ions:Hyperglycem ia due to diabetes mellitus ([facility]) Inject 10 Units under the skin Once daily. 3 mL 3 5 026 Active FREESTYLE LITE test stripIndications :Hyperglycemia due to diabetes mellitus ([facility]) Use to test blood sugar 3 times daily 100 each 12 5 026 Active Lancets miscIndications: Hyperglycemia due to diabetes mellitus ([facility]) Use to test blood sugar 3 times daily 100 each 5 Active Alcohol Swabs 70 % padsIndications: Hyperglycemia due to diabetes mellitus ([facility]) Use to clean skin before checking blood sugar 100 each 11 5 Active Blood Glucose Monitoring Suppl (FreeStyle [place] Lite) w/Device kitIndications:H yperglycemia due to diabetes mellitus ([facility]) Use to test blood sugar [...] each 12 5 026 Active Continuous Glucose Inventory Control Assistant (FreeStyle Jey 2 [place]) deviceIndication s:New onset type 2 diabetes mellitus [...] DEPARTMENT Provider, Generic External Data 05/13/[address] [facility] [address] [place] [address] Taras Shrestha MD Dermatophytosis 05/09/2024 Population Health Risk Score [facility] () Department [address] [place] [phone] Provider, Population Health Generic 04/25/[address] [facility] MEDICINE [address] [place] [address] Shira Mack, RN RN DSMES Outreach 04/18/2024 3:00 PM EST Clinical Support [facility] [address] [place] [address] Shira Mack, RN New onset type 2 diabetes mellitus ([facility]/HCC) 04/18/[address] [facility] MED[facility] [address] [place] [address] Shira Makc, RN Hyperglycemia due to diabetes mellitus (CMS/HCC) 04/10/2024 2:30 PM EST Office Visit [address] [address] Lizy Garcia ANP Hyperglycemia due to diabetes mellitus (CMS/HCC) (Primary Dx); Malignant tumor of prostate (CMS/HCC); Dyslipidemia; Dermatophytosis; Constipation, unspecified constipation type; Acute right-sided low back pain without sciatica 04/10/2024 Travel 04/03/[address] [address] Shira Mack, RN RN DSMES F/U 03/31/[address] [address] Lizy Garcia ANP New onset type 2 diabetes mellitus (CMS/HCC) 03/27/2024 3:00 PM EST Clinical Support [address] [address] Shira Mack RN New onset type 2 diabetes mellitus ([facility]/HCC) 03/27/2024 Travel from Last 3 Months Immunizations Name [...] 07/08/2024 2:15 PM EDT Office Visit [facility] MEDICINE [address] [place], [place] [phone] Lizy Garcia ANP [address] [place] [address] 09/04/2024 3:00 PM EDT Office Visit [facility] OPTOMETRY [address] [place] [address] Lulú Kat OD 230 [place] [address] Health Maintenance Due Date Last Done Comments [...] (Free>4and<10) 14.36(H ) 0.00 - 4.00 ng/mL [facility] Comment:A Free PSA was not [...] Provider LAB BLOOD ORDERAB LES Final Result [facility] [address] [place] [address] [phone] * POCT Glucose (04/18/2024 9:43 AM EST) Only the most recent of3 resultswithin the time period is included. Glucose Blood, POC 146 60 - 200 mg/dL QC Media Lot # [id number] Lot# Expiration Date Blood Capillary blood specimen / Unknown 04/18/2024 9:43 AM EST Lizy Garcia [facility] POINT OF CARE TEST ENTER/EDIT OR DERABLES Final Result * (ABNORMAL) POCT HGB A1C (04/10/2024 3:46 PM EST) Hemoglobin A1C 10.1(A) 4.0 - 6.0 % QC Media Lot # [id number] Lot# Expiration Date Blood 04/10/2024 3:46 PM EST [facility] Garcia [facility] POINT OF CARE TEST ENTER/EDIT OR DERABLES Final Result * (ABNORMAL) Lipid Panel, Standard (03/10/2022 8:51 AM EST) Cholesterol, Total 246(H) <200 mg/dL [facility] [employer] HDL Cholesterol 44 > OR = 40 mg/dL [facility] [employer] Triglycerides 242(H) <150 mg/dL [employer] Comment: If a non-fasting specimen was collected, consider repeat triglyceride testing on a fasting specimen if clinically indicated. Edward et al. J. of Clin. Lipidol. 2015;9:129-169. LDL Cholesterol 161(H) mg/dL (calc) [employer] Comment: Reference range: <100 Desirable range <100 mg/dL for primary prevention; ?? <70 mg/dL for patients with CHD or diabetic patients with > or = 2 CHD risk factors. LDL-C is now calculated using the Juarez-Debby calculation, which is a validated novel method providing better accuracy than the Friedewald equation in the estimation of LDL-C. Juarez SS et al. AMIRA. 2013;310(19): 5607-3295 (http://education.Stentys/faq/RFE555) Chol/HDLC Ratio 5.6(H) <5.0 (calc) [facility] Non-HDL Cholesterol 202(H) <130 mg/dL (calc) [employer] Comment: For patients with diabetes plus 1 major ASCVD risk factor, treating to a non-HDL-C goal of <100 mg/dL (LDL-C of <70 mg/dL) is considered a therapeutic option. Blood Venous blood specimen / Unknown 03/10/2022 8:51 AM EST 03/10/2022 8:51 AM EST Narrative [facility] - 03/13/2022 1:26 PM EST FASTING:YES FASTING: YES [facility] LAB BLOOD ORDERABLES Final Resul t [facility] [address] [facility] [place] [address] simfy [facility] [address] [facility], ([address]) [place] [address] * Colonoscopy (05/24/2020) Colonoscopy Normal Normal Historical Provider HEALTH MAINTENANCE Final Result * HEPATITIS C AB W/REFL TO HCV RNA, QN, PCR (01/09/2020 10:22 AM EST) HEPATITIS C ANTIBODY NON-REACT GIOVANNY NON-REACT GIOVANNY [facility] INDEX 0.02 <1.00 [facility] Comment: ?? HCV antibody was non-reactive. There is no laboratory ?? evidence of HCV infection. ?? In most cases, no further action is required. However, if recent HCV exposure is suspected, a test for HCV RNA (test code 79277) is suggested. ?? For additional information please refer to http://Inaika.JDLab/faq/SMX37x4 (This link is being provided for informational/ educational purposes only.) ?? HEPATITIS C ANTIBODY NON-REACT GIOVANNY NON-REACT GIOVANNY [facility] INDEX 0.02 <1.00 [facility] Comment: ?? HCV antibody was non-reactive. There is no laboratory ?? evidence of HCV infection. ?? In most cases, no further action is required. However, if recent HCV exposure is suspected, a test for HCV RNA (test code 65055) is suggested. ?? For additional information please refer to http://OnAir Player/faq/TAB40z8 (This link is being provided for informational/ [...] a test for HCV RNA (test code 55911) is suggested. ?? For additional information please refer to http://OnAir Player/faq/FEG36r6 (This link is being provided for informational/ educational purposes only.) ?? 01/09/2020 10:2 2 AM EST us Lizy Garcia ANP HISTORICAL/NON ORDERABLE LABS Fi nal Result [facility] [address] * HIV 1/2 ANTIGEN/ANTIBODY,FOURTH GENERATION W/RFL [...] ? For additional information please refer to http://Inaika.JDLab/faq/VQG654 (This link is being provided for informational/ educational purposes only.) ? The performance of this assay has not been clinically validated in patients less than 2 years old. ?? HIV-1/2 ANTIGEN AND ANTIBODIES, 4TH GENERATION W/ REFLEX NON-REACT GIOVANNY NON-REACT GOIVANNY [facility] Comment: HIV-1 antigen and HIV-1/HIV-2 [...] ? For additional information please refer to http://OnAir Player/faq/SDD304 (This link is being provided for informational/ [...] ? For additional information please refer to http://Inaika.JDLab/faq/KTW425 (This link is being provided for informational/ educational purposes only.) ? The performance of this assay has not been clinically validated in patients less than 2 years old. ?? 01/09/2020 10:2 2 AM EST Lizy Garcia [facility] LAB BLOOD ORDERABLES Final Resul t [facility] [address] from Last 3 Months or Most Recently Relevant to Health Maintenance Insurance [facility] C3 DENTAL-[facility] MEDICAID STAND ADULT Care Teams Staple Laster Relationship Specialty Start Date End Date Lizy Garcia ANP [address] [place] [address] PCP - General Family Medicine 12/24/19 Shira Mack RN [address] [place] [address] Staff Psychologist Family Medicine 03/27/24
--- OUTSIDE RECORDS SUMMARY | 2024-06-18 12:04 | XMS_ITS | Encounter Summary ---
Author Organization [employer] Address [address] [facility] 7t [place] [address] Care Team Providers Care Motor Electrician Name Role Phone Lizy Garcia Primary Care Provider [phone] Shira Mack RN Unavailable [phone] Reason for Visit * Reason Comments Med Refill Encounter Details Date Type Department Care Team ([facility] st Contact Info) Description 01/21/2023 Refill [facility] MEDICINE [address] [place], [place] [phone] Lizy Garcia ANP 230 [place], [place] [phone] GERD without esophagitis Social History Tobacco Use [...] Description 07/08/2024 2:15 PM EDT Office Visit [facility] MEDICINE [address] [place] [address] Lizy Garcia ANP [address] [place] [address] 09/04/2024 3:00 PM EDT Office Visit [facility] OPTOMETRY [address] [place] [address] North, Lulú, OD 230 [place] [address] documented as of this encounter Visit Diagnoses Diagnosis GERD without esophagitis Esophageal reflux documented in this encounter Care Teams Motor Electrician Relationship Specialty Start Date End Date Lizy Garcia ANP [address] [place] [address] PCP - General Family Medicine 12/24/19 Shira Mack, RN [address] [place] [address] Reduction Furnace Operator Helper Family Medicine 03/27/24 documented as of this encounter
--- OUTSIDE RECORDS SUMMARY | 2024-06-18 12:04 | XMS_ITS | Encounter Summary ---
Author Organization [employer] Address [address] [place] [address] 7t [place] [address] Care Team Providers Care Truck Terminal Manager Name Role Phone Lizy Garcia Primary Care Provider [phone] Shira Mack RN Unavailable [phone] Reason for Visit * Reason Onset Date Comments RN DSMES Outreach 04/25/2024 Encounter Details Date Type Department Care Team ([facility] st Contact Info) Description 04/25/2024 Telephone [facility] MEDICINE 230 [place], [place] [phone] Shira Mack, RN [address] [place], [place] [phone] RN DSMES Outreach Social History Tobacco Use Types Packs/Day Years [...] AM EDT documented as of this encounter Miscellaneous Notes * Telephone Encounter - Shira Mack RN - 05/01/2024 3:44 PM EST Pt walked into [facility] lobby requesting to speak with me. Gave me FBG readings as below: Date FBG 04/26/24 142 04/27/24 130 04/28/24 132 04/29/24 134 04/30/24 126 05/01/24 126 Encouraged pt to keep up the good work and to call me once he is back for [place] (is leaving in 2 weeks) * Telephone Encounter - Shira Mack RN - 04/25/2024 9:10 AM EST Telephone call placed to pt's [facility] who confirmed he picked up glucometer, lancets, and pen needles. Telephone call placed to pt who reports that he has been checking BG. FBG was 140mg/dL today. Pt reports overall feeing and doing well. Has been still working on his diet. No concerns at this time. Tried to book follow up with him for April but pt reports is leaving for [place]. Will be gone for a few weeks. Not sure date he'll be back. Advised he call me or come in to make an appt once he is back. I will send a reminder so if I don't hear from him, I'll reach out. Pt agreeable. Advised he call if he has any questions or concerns. Pt verbalized understanding and denied having any further questionsor concerns at this time. documented in this encounter Plan of Treatment Upcoming Encounters Date Type Department Care Team (Late st Contact Info) Description 07/08/2024 2:15 PM EDT Office Visit [facility] MEDICINE [address] [place] [address] Lizy Garcia ANP [address] [place] [address] 09/04/2024 3:00 PM EDT Office Visit [facility] OPTOMETRY [address] [place], [place] [phone] Lulú Kat, OD 230 [place] [address] documented as of this encounter Visit Diagnoses Not on filedocumented in this encounter Additional Health Concerns Assessment Noted Time PHQ-9 Depression Total Score: 0 04/10/19 3:43 PM EST documented as of this encounter Care Teams Truck Terminal Manager Relationship Specialty Start Date End Date Lizy Garcia ANP [address] [place] [address] PCP - General Family Medicine 12/24/19 Shira Mack RN [address] [place] [address] Commercial Stripper Family Medicine 03/27/24 documented as of this encounter
--- OUTSIDE RECORDS SUMMARY | 2024-06-18 12:04 | XMS_ITS | Encounter Summary ---
Author Organization [employer] [facility] Address [address] [place] [address] [address] [place] [address] Care Team Providers Care Air Brake Tester Name Role Phone Lizy Garcia Primary Care Provider [phone] Shira Mack RN Unavailable [phone] Encounter Details Date Type Department Care Team (Latest Contact Info) Description 03/24/2019 Abstract [facility] CONVERSIONS Dental, Provider, DDS Social History [...] Description 07/08/2024 2:15 PM EDT Office Visit [facility] MEDICINE [address] [place] [address] Lizy Garcia ANP [address] [place] [address] 09/04/2024 3:00 PM EDT Office Visit [facility] OPTOMETRY [address] [place] [address] Lulú Kat, OD 230 [place] [address] documented as of this encounter Visit Diagnoses Not on filedocumented in this encounter Care Teams Air Brake Tester Relationship Specialty Start Date End Date Lizy Garcia ANP [address] [place] [address] PCP - General Family Medicine 12/24/19 Shira Mack, BENY [address] [place] [address] Transit [employer] Police Officer Family Medicine 03/27/24 documented as of this encounter
--- OUTSIDE RECORDS SUMMARY | 2024-06-18 12:04 | XMS_ITS | Encounter Summary ---
Author Organization [employer] Address [address] [facility] 7t [place] [address] Care Team Providers Care Door To Door Selling Distributor Name Role Phone Lizy Garcia Primary Care Provider [phone] Shira Mack RN Unavailable Reason for Visit * Reason Comments Med Refill Encounter Details Date Type Department Care Team ([facility] st Contact Info) Description 05/13/2024 Refill [facility] 230 [place], [place] [phone] Taras Shrestha MD 230 [place], [place] [phone] Dermatophytosis Social History Tobacco Use Types Packs/Day [...] Office Visit [facility] MEDICINE 230 [place] [address] Lizy Garcia ANP 230 [place] [address] 09/04/2024 3:00 PM EDT Office Visit [facility] OPTOMETRY [address] [place] [address] North, Lulú, OD 230 [place] [address] documented as of this encounter Visit Diagnoses Diagnosis Dermatophytosis Dermatophytosis of unspecified site documented in this encounter Additional Health Concerns Assessment Noted Time PHQ-9 Depression Total Score: 0 04/10/19 3:43 PM EST documented as of this encounter Care Teams Door To Door Selling Distributor Relationship Specialty Start Date End Date Lizy Garcia ANP [address] [place] [address] PCP - General Family Medicine 12/24/19 Shira Mack RN [address] [place] [address] Chief Executive Family Medicine 03/27/24 documented as of this encounter
[2024-07-18 13:55] VITALS: BMI 27.4
--- NOTE | 2024-07-22 12:00 | P.CONAN_ITS ---
HPI - Anesthesia Eval Consult details Narrative: 64yo M for Colonoscopy PMFSH Active Problems Active Problems: All Active Problems Anorectal hemorrhage (Acute) Elevated PSA (Acute) Erectile dysfunction due to arterial insufficiency (Acute) BPH w urinary obs/LUTS (Acute) Prostate cancer (Acute) Past Medical History Medical History (Updated 07/22/24 @ 11:38 by Ifeoma Osborn, RN) Diabetes Prostate cancer GERD (gastroesophageal reflux disease) Elevated cholesterol Erectile dysfunction BPH (benign prostatic hyperplasia) Family History Family History Mother Advancing dementia Family history of problems with anesthesia: No Surgical History Surgical History Hx of prostate biopsy H/O knee surgery H/O colonoscopy History of Problems with Anesthesia: No Social History Social History Household Members: Spouse Alcohol intake: current Alcohol intake frequency: holidays/special occasions only Alcohol type: beer Patient Tobacco Use Status: Never used Tobacco Meds Allergies Allergy/AdvReac Type Severity Reaction Status Date / Time No Known Allergies Allergy Verified 06/13/24 08:59 [No Known Allergies*] Home Medications ?Medication ?Instructions ?Recorded ?Confirmed ?Last Taken ?Type omeprazole 20 mg capsule,delayed 20 mg PO QAM 03/13/23 07/18/24 03/12/23 06:00 History release atorvastatin 20 mg tablet 20 mg PO BEDTIME 06/07/23 07/18/24 Unknown History cholecalciferol (vitamin D3) 25 25 mcg PO DAILY 06/07/23 07/18/24 Unknown History mcg (1,000 unit) capsule (Vitamin D3) metformin 500 mg tablet,extended 500 mg PO BID 06/11/24 07/18/24 Unknown History release 24 hr blood sugar diagnostic (FreeStyle #10 ea 06/13/24 Unknown History Precision Junior Strips) blood-glucose meter (FreeStyle #1 ea 06/13/24 Unknown History [place] Lite kit) flash glucose scanning reader #1 ea 06/13/24 Unknown History (FreeStyle Jey 2 [place]) flash glucose sensor (FreeStyle #1 ea 06/13/24 Unknown History Jey 2 Sensor kit) lancets 28 gauge (FreeStyle #100 ea 06/13/24 Unknown History Lancets) pen needle, diabetic 32 gauge x #1,200 ea 06/13/24 Unknown History Exam Height,Weight and Vital Signs: Height 5 ft 6 in Weight 77.111 kg Assessment and Plan Assessment Anesthesia Assessment: Chart Reviewed Final Anesthetic Review Family History of Problems with Anesthesia: No History of Problems with Anesthesia: No
[2024-07-23] MEDS: Lactated Ringers 1,000 ML 100 ML IVCONT (08:21)
--- NOTE | 2024-07-23 08:25 | HO.ANESPROP2 ---
[facility] Active Problems Active Problems: All Active Problems Anorectal hemorrhage (Acute) Elevated PSA (Acute) Erectile dysfunction due to arterial insufficiency (Acute) BPH w urinary obs/LUTS (Acute) Prostate cancer (Acute) Past Medical History Medical History Diabetes Prostate cancer GERD (gastroesophageal reflux disease) Elevated cholesterol Erectile dysfunction BPH (benign prostatic hyperplasia) Functional capacity: independent ambulation Family History Family History Mother Advancing dementia Family history of problems with anesthesia: No Surgical History Surgical History Hx of prostate biopsy H/O knee surgery H/O colonoscopy History of Problems with Anesthesia: No Social History Social History Household Members: Spouse Alcohol intake: current Alcohol intake frequency: holidays/special occasions only Alcohol type: beer Patient Tobacco Use Status: Never used Tobacco Advance Directives: No Advance Directives Information Provided: Yes Meds Allergies Allergy/AdvReac Type Severity Reaction Status Date / Time No Known Allergies Allergy Verified 06/13/24 08:59 [No Known Allergies*] Active Medications: Current Medications Lactated Ringer's (Lr) 1,000 mls @ 100 mls/hr IVCONT .Q10H [place] Last Admin: 07/23/24 08:21 Dose: 100 mls/hr Home Medications ?Medication ?Instructions ?Recorded ?Confirmed ?Last Taken ?Type omeprazole 20 mg capsule,delayed 20 mg PO QAM 03/13/23 07/18/24 03/12/23 06:00 History release atorvastatin 20 mg tablet 20 mg PO BEDTIME 06/07/23 07/18/24 Unknown History cholecalciferol (vitamin D3) 25 25 mcg PO DAILY 06/07/23 07/18/24 Unknown History mcg (1,000 unit) capsule (Vitamin D3) metformin 500 mg tablet,extended 500 mg PO BID 06/11/24 07/18/24 Unknown History release 24 hr blood sugar diagnostic (FreeStyle #10 ea 06/13/24 Unknown History Precision Junior Strips) blood-glucose meter (FreeStyle #1 ea 06/13/24 Unknown History [place] Lite kit) flash glucose scanning reader #1 ea 06/13/24 Unknown History (FreeStyle Jey 2 [place]) flash glucose sensor (FreeStyle #1 ea 06/13/24 Unknown History Jey 2 Sensor kit) lancets 28 gauge (FreeStyle #100 ea 06/13/24 Unknown History Lancets) pen needle, diabetic 32 gauge x #1,200 ea 06/13/24 Unknown History Exam Height,Weight and Vital Signs: Height 5 ft 6 in Weight 77.111 kg Airway Mallampati Class: II TM Dist: >3cm Neck ROM: Full Heart: RRR Lungs: CTA Assessment and Plan Assessment Anesthesia Assessment: Anesthesia Plan Discussed Final Anesthetic Review Family History of Problems with Anesthesia: No History of Problems with Anesthesia: No NPO: Yes ASA Class: II Final Preanesthetic Review: Meds/Allgs Chart Reviewed, Consent Obtained/Reviewed and Anes Risks/Benef Reviewed Patient Risk: Low Procedure Risk: Low Anesthetic Plan Anesthetic Plan: MAC: Disposition: Standard PACU
[2024-07-23 08:36] VITALS: BP 123/83; PULSE 86; RESP 18; TEMP 36.8; O2SAT 96
--- NOTE | 2024-07-23 08:37 | P.HPSUR_ITS ---
Pre-Procedural Eval Section A - 24 Hr Update-Section A only Date of Service: 07/23/24 Section B - Complete if H&P > 30 days Chief Complaint: Encounter for screening for malignant neoplasm of Relevant Family History (Specify if Yes): No Relevant Social History: None Present Medications: see Short Stay Collaborative assessment Medical History: Significant History (Diabetes Prostate cancer GERD (gastroeso phageal reflux disease) Elevated cholesterol Erectile dysfunction BPH (benign prostatic hyperplasia)) History of Previous Operations: Relevant previous surgery/procedure and date(s) ( Hx of prostate biopsy H/O knee surgery H/O colonoscopy) Allergies: Allergies Allergy/AdvReac Type Severity Reaction Status Date / Time No Known Allergies Allergy Verified 06/13/24 08:59 [No Known Allergies*] Review of Systems Sugical H&P ROS: Negative: Constitution, Cardiovascular, Respiratory, Neurological, Psychiatric, Hem-Onc, Allergic/Immunologic, Gastrointestinal, Genitourinary, Musculoskeletal, Integumentary, Endocrine and Eyes/Ears/Nose/Throat Exam Surgical H&P Exam: Normal: HEENT, Normal: Heart, Normal: Lungs, Normal: Extremities, Normal: Abdomen and Normal: Neurological and Significant Findings: Skin (vitilligo) Plan Diagnosis/Plan: Unchanged I have reviewed the history and physical and performed a pertinent physical examination on my patient. No changes have occurred unless specified. Time Spent With Patient Time: Total time managing care of this patient today ____ minutes.
[2024-07-23 08:49] LABS: Glucose, Whole Blood 145 mg/dL (60-115)
--- NOTE | 2024-07-23 09:00 | P.OPN-COLO_ITS ---
Colonoscopy Operative Note Operative Note Date of Service: 07/23/24 Narrative: Operative Information Procedure Description: Colonoscopy Indication: screening Anesthesia: MAC COLONOSCOPY Instrument: Olympus variable stiffness pediatric scope 190L Colonoscopy Monitoring: Vital signs and clinical assessment, continuous EKG monitoring, Pulse oximetry, Carbon Dioxide monitoring and blood pressure monitoring were done throughout the procedure. Colon withdrawal time was 8 minutes. Procedure: The patient was placed in the left lateral decubitis position and pre-procedure medications were administered. After a digital rectal examination of the ano-rectum, the video colonoscope was inserted into the rectum and advanced through the colon to the cecum/TI. The colonoscope was slowly withdrawn in a retrograde panoramic fashion and the colon mucosa was carefully examined including a retroflexed view of the rectum. Findings and interventions are described below. Procedure Difficulty: easy Findings: Terminal Ileum-normal Cecum:normal rigth sided retroflexion- normal Ascending Colon: normal Transverse Colon -normal Descending Colon:normal Sigmoid Colon: normal Rectum: Retroflexion with medium sized internal hemorrhoids seen, grade I Anorectum - normal Intervention: none Colon preparation: [place] Bowel Preparation Scale Right colon; 3 Transverse colon: 3 Left colon; 1-2 (0 = Unprepared colon segment with mucosa not seen due to solid stool that canno t be cleared. 1 = Portion of mucosa of the colon segment seen, but other areas of the colon segment not well seen due to staining, residual stool and/or opaque liquid. 2 = Minor amount of residual staining, small fragments of stool and/or opaque liquid, but mucosa of colon segment seen well. 3 = Entire mucosa of colon segment seen well with no residual staining, small fragments of stool or opaque liquid) Impression and Post Procedure Diagnosis: internal hemorrhoids Plan: High fiber diet leaflet Avoid straining at stool, epsom salts and sitz bath, anusol supps or cream Repeat Colonoscopy in 5 years due to some areas of fair prep on left or earlier if clinically indicated Above findings were reviewed with the patient and relevant handouts were provided if indicated.
[2024-07-23 09:04] VITALS: BP 87/53; PULSE 66; RESP 16; TEMP 36.2; O2SAT 96
[2024-07-23 09:10] VITALS: BP 92/56; PULSE 63; RESP 16; O2SAT 95
[2024-07-23 09:20] VITALS: BP 99/63; PULSE 72; RESP 18; TEMP 36.7; O2SAT 97
[2024-07-23 09:33] VITALS: BP 102/73; PULSE 64; RESP 16; TEMP 36.7; O2SAT 98
--- NOTE | 2024-07-23 11:38 | HO.POSTANES ---
Post Anesthesia Evaluation Post Anesthesia Evaluation Date of Service: 07/23/24 Vital Signs: Vital Signs Temp Pulse Resp BP Pulse Ox O2 Del Method 07/23/24 09:33 98.1 F 64 16 102/73 98 Room Air 07/23/24 09:20 98.1 F 72 18 99/63 97 Room Air 07/23/24 09:10 63 16 92/56 L 95 Room Air 07/23/24 09:04 97.1 F 66 16 87/53 L 96 Room Air 07/23/24 08:36 98.2 F 86 18 123/83 96 Room Air Anesthesia: Monitored Mental Status: Awake Pain Control: Satisfactory Nausea/Vomiting: None Hydration: Adequate Anesthesia-Related Issues: No Anes. Related Issues
== END 2024-07-23 10:02 | disposition home or self-care (01) ==
PROVIDERS: PCP Nurse Practitioner Primary Care; Visit Provider Internal Medicine Gastroenterology
PROC: 0DJD8ZZ Inspection of Lower Intestinal Tract, Via Natural or Artificial Opening Endoscopic (ICD-10-PCS; CPT 45378; principal; 2024-07-23 09:10)
DX: Z12.11 Encounter for screening for malignant neoplasm of colon (principal); K64.0 First degree hemorrhoids; E11.9 Type 2 diabetes mellitus without complications; E78.00 Pure hypercholesterolemia, unspecified; C61 Malignant neoplasm of prostate; Z79.02 Long term (current) use of antithrombotics/antiplatelets; Z79.84 Long term (current) use of oral hypoglycemic drugs; Z79.899 Other long term (current) drug therapy
CPT/HCPCS: 45378; 82947; J2003; J2704

== ENCOUNTER → 2024-07-23 08:06 | Outpatient (BNV) | payer MEDICAID, SELFPAY | PROVIDERS: PCP Nurse Practitioner Primary Care; Visit Provider Internal Medicine Gastroenterology | DX: Z12.11 Encounter for screening for malignant neoplasm of colon (principal); K64.0 First degree hemorrhoids; Z91.199 Patient's noncompliance with other medical treatment and regimen due to unspecified reason | CPT/HCPCS: 45378 ==

== ENCOUNTER 2024-07-28 15:53 | Outpatient (AMB) | payer MEDICAID, SELFPAY ==
--- NOTE | 2024-07-28 15:56 | MHC.OFFVIS ---
Intake Visit Reasons: 8wk/ MRI/PET Intake Note: Patient presents today for 8 week follow up/MRI 07/07 Prostate MRI Urology Meds- None Allergies to Antibiotic- No Known Allergies Blood Thinner- None Armored Transport Service Manager Required: No Accompanied by: Self / Same As Patient Allergies No Known Allergies [No Known Allergies*] Allergy (Verified 06/13/24 08:59) Medication List - Last Reconciled 07/28/24 by Alyse Starks MD atorvastatin 20 mg PO BEDTIME blood sugar diagnostic (FreeStyle Precision Junior Strips) As directed blood-glucose meter (FreeStyle Turin Lite kit) As directed cholecalciferol (vitamin D3) (Vitamin D3) 25 mcg PO DAILY docusate sodium 100 mg PO BEDTIME flash glucose scanning reader (FreeStyle Jey 2 [place]) As directed flash glucose sensor (FreeStyle Jey 2 Sensor kit) As directed hydrocortisone 2.5% (Anusol-HC) 1 appl NC BID-QID PRN lancets (FreeStyle Lancets) As directed metformin ER 500 mg PO BID omeprazole 20 mg PO QAM pen needle, diabetic As directed HPI Comments Details: 07/28/24--James is a 64-year-old male who has been on active surveillance for localized prostate cancer he is here after completing a pelvic MRI. History of Present Illness The patient is a 64-year-old male presenting with a follow-up for prostate cancer management. The patient underwent a prostate MRI which revealed that the neoplasm remains localized within the prostate, with no invasive spread to surrounding structures or lymphatic involvement. The last PSA measurement, dated May 23, indicated a level of 14.36. The patient had prior Polaris test that was performed on an earlier biopsy date of report 08/09/2020 reported as a low-risk score of 2.5. The role of surgical intervention or radiation was discussed as potential options, and I advised the patient to consult Dr. Renae, a urology oncologist, to further deliberate on surgical considerations. CoMorbidity - pre-Diabetes , the patient has changed his diet, adjustments have contributed to stable glucose readings. The patient was evaluated by GI due to complaints of rectal bleeding, he states he had a colonoscopy with was within normal limits. Urinary symptoms have diminished in frequency, with the improvement in his blood sugars Urinary Symptoms Review - Reduced frequency and severity of urinary symptoms with better glucose control Results - Prostate MRI: prostate right mid zone PIRADS 3 and 5, no obvious spread to nearby organs or lymph nodes - PSA level (May 23, 2024): 14.36 ng/mL - 08/09/2020--Polaris Score: 2.5 06/02/24--James is a 64-year-old male who has been followed for active surveillance in the past for prostate cancer. He lost his insurance and his PSA has now gone up to 14.36. He had previous prostate biopsy which noted cancer group 1 and group 2 The patient states that his diabetes has been under better control and he states he changed his diet to more fruits and vegetables and his fingersticks have been in the 120s and he has noticed decreased urinary frequency. I have discussed further evaluation with MRI of the prostate and a PET body scan. The patient also complains of blood after having a bowel movement when he wipes and he feels that he may have a hemorrhoid he has been given an ointment by his PCP which has helped with the itching but he still has pain. I will refer him to General surgery for evaluation for surgical management. 03/22/23--James is here for evaluation for elevated PSA, he was last seen by Dr. Dunham in 2020 and was placed on active surveillance for low volume prostate cancer. The patient states he has not followed up with a Urologist since that time. He had been prescribed proscar and tadalfil, in the past. He did not get the repeat PSA -- PSA was 9.94 on 07/27/20 03/22/23-- s/p repeat Prostate biopsy on 03/13/23- results detailed below in the results section: Group 1 and group 2 - involving both the right and left sides of the prostate. I want him to have 2nd opinion with Dr. Alfaro to evaluate regarding surgery. Review of chart: Erectile dysfunction Did have some response to tadalafil. Lower urinary tract symptoms Has narrowing of stream Nocturia times 2-3 Will benefit from combination tamsulosin and finasteride Tamsulosin added to finasteride prescription Prostate cancer PSA-- 05/15 --7.1, PSA --08/16 --9.9 Adenocarcinoma of the prostate (T1c N0 M0, Traci score 7, Grade Group 2 , PSA at Diagnosis) NCCN favorable intermediate Prostate cancer was diagnosed Dr Dunham May 2019 Diagnosis was reached by - needle biopsy - , for elevated PSA 7.6 - , size at TRUS. The [place] grade is 3+4 Date: May 2019 12 Core biopsy Positive Biopsies: 4 - 3+4 right base lateral, 3+3 right base medial, right mid medial, right apex medial Negative Biopsies: [place] 4 or 5: < 5% total (%) Positive: 10% total Locations: TNM Classification of Malignant Tumours (TNM) - , T1c The D'Kirk (NCCN) risk category is - - Favorable Intermediate Risk (PSA 10-20, Gl 7, T2) Group 2 Initial therapy included - active surveillance [facility] Medical History Diabetes Prostate cancer GERD (gastroesophageal reflux disease) Elevated cholesterol Erectile dysfunction BPH (benign prostatic hyperplasia) Surgical History Hx of prostate biopsy H/O knee surgery H/O colonoscopy Family History Mother Advancing dementia Social History Household Members: Spouse Are you a primary managed care specialist to a significant other at home: No Do you presently have visiting nurse or other home services: No Alcohol intake: current Alcohol intake frequency: holidays/special occasions only Alcohol type: beer Patient Tobacco Use Status: Never used Tobacco Review of Systems Const All systems reviewed & are unremarkable except as noted in HPI and below Reports no additional complaints Eyes Reports no additional complaints ENT Reports no additional complaints Card Reports no additional complaints Resp Reports no additional complaints GI Reports no additional complaints Reports as per HPI Musc Reports no additional complaints Skin/Breast Reports system reviewed and no additional complaints, except as documented Neuro Reports no additional complaints Psych Reports no additional complaints Endo Reports no additional complaints Joseph/Lymph Reports no additional complaints Aller/Immun Reports no additional complaints Results AMB Urinalysis, Automated UA Leukoctes 0 Barbara/uL Last Edit by Zahra Mabry on 07/28/24 16:44 UA Nitrite Negative Last Edit by Zahra Mabry on 07/28/24 16:44 UA Urobilinogen 17 mg/dL Last Edit by Zahra Mabry on 07/28/24 16:44 UA Protein 1 mg/dL Last Edit by Zahra Mabry on 07/28/24 16:44 UA pH 6.0 Last Edit by Zahra Mabry on 07/28/24 16:44 UA Blood 0 Missael/uL Last Edit by Zahra Mabry on 07/28/24 16:44 UA Specific [place] 1.015 Last Edit by Zahra Mabry on 07/28/24 16:44 UA Ketone Positive Last Edit by Zahra Mabry on 07/28/24 16:44 UA Bilirubin 0 mg/dL Last Edit by Zahra Mabry on 07/28/24 16:44 UA Glucose 0 mg/dL Last Edit by Zahra Mabry on 07/28/24 16:44 Results Reviewed Results Reviewed: Laboratory Last Values Urine pH (Auto) 6.0 07/28/24 16:35 Specific [place] (Auto) 1.015 07/28/24 16:35 Urine Protein (Auto) 1 mg/dL 07/28/24 16:35 Glucose (UA)(Auto) 0 mg/dL 07/28/24 16:35 Urine Ketones (Auto) Positive 07/28/24 16:35 Urine Blood (Auto) 0 Missael/uL 07/28/24 16:35 Urine Nitrite (Auto) Negative 07/28/24 16:35 Urine Bilirubin (Auto) 0 mg/dL 07/28/24 16:35 Urine Urobilinogen (Auto) 17 mg/dL 07/28/24 16:35 Leukocyte Esterase (Auto) 0 Barbara/uL 07/28/24 16:35 Date of Service: 07/07/24 EXAMINATION: MRI prostate without and with contrast. Most recent PSA: 14.36 ng/mL PSA Density: 0.55 ng/mL squared FINDINGS: Prostate size: 2.93 x 4.69 x 3.62 cm. Calculated prostate volume is 25.86 ML. Hemorrhage: None. Transitional Zone: Heterogeneous nodules but no focal increased T2 signal. Large heterogeneous nodule with capsule in the left apex to mid segment measures 2.3 x 1.9 x 1.2 cm. Peripheral Zone: T2: Focal increased T2 signal right mid zone with corresponding decreased signal on ADC map, slightly heterogenous. PI-RADS: 3 Diffusion: Focal patchy increased diffusion in the right peripheral zone along the mid segment 2 apex. PI-RADS: 5. DEI: Diffuse mild enhancement throughout the prostate. PI-RADS: 3 Seminal Vesicles/Ejaculatory Ducts: Symmetric and normal in signal and caliber. Pelvic Lymph Nodes: No obturator or internal iliac lymph nodes meeting size criteria for adenopathy. Marrow Signal: Normal marrow signal and enhancement without focal lesion identified. IMPRESSION: Right peripheral zone mid to. PI-RADS 5: Very high (clinically significant cancer is highly likely to be present) PI-RADS Assessment Categories PI-RADS 1: Very low (clinically significant cancer is highly unlikely to be present) PI-RADS 2: Low (clinically significant cancer is unlikely to be present) PI-RADS 3: Intermediate (the presence of clinically significant cancer is equivocal) PI-RADS 4: High (clinically significant cancer is likely to be present) PI-RADS 5: Very high (clinically significant cancer is highly likely to be present) Collected: 03/13/23 Location: [facility] Received: 03/13/23 Diagnosis Prostate needle biopsies: A: Left base lateral: Benign prostatic tissue; negative for carcinoma. B: Left base medial: Prostatic adenocarcinoma, Traci score 3+3=6 (grade group 1) involving 20% of the tissue. C: Left mid lateral: Prostatic adenocarcinoma, Traci score 3+4=7 (grade group 2) involving 20% of the tissue. D: Left mid medial: Prostatic adenocarcinoma, Traci score 3+3=6 (grade group 1) involving 15% of the tissue. E: Left apex lateral: Prostatic adenocarcinoma, too small to grade, involving less than 5% of the tissue. F: Left apex medial: Benign prostatic tissue; negative for carcinoma. G: Right base lateral: Prostatic adenocarcinoma, Traci score 3+4=7 (grade group 2) involving 90% of the tissue. H: Right base medial: Prostatic adenocarcinoma, [place] score 3+3=6 (grade group 1) involving 70% of the tissue. I: Right mid lateral: Benign prostatic tissue; negative for carcinoma. J: Right mid medial: Benign prostatic tissue; negative for carcinoma. K: Right apex lateral: Benign prostatic tissue; negative for carcinoma. L: Right apex medial: Benign prostatic tissue; negative for carcinoma. Data synopsis - Prostate needle biopsy Histologic type: Adenocarcinoma, acinar type Histologic grade: [place] score: 3+4=7 (left mid lateral, right base lateral) 3+3=6 (left base medial, left mid medial, right base medial) Too small to grade (left apex lateral) Assessment & Plan Assessment & Plan (1) Prostate cancer: Code(s): C61 - Malignant neoplasm of prostate Category: Medical Plan Referral to Dr. Renae for evaluation and assessment for radical prostatectomy Orders: Orders AMB Urinalysis Automated Today C61 - Malignant neoplasm of prostate, N13.8 - Other obstructive and reflux uropathy, N40.1 - Benign prostatic hyperplasia with lower urinary tract symptoms Referrals Urology Referral C61 - Malignant neoplasm of prostate Patient Instructions: The patient had an opportunity to ask questions regarding treatment plan. The patient expressed understanding and agreement with the above treatment plan. The patient is aware they should contact our office by phone for worsening of their current condition or the appearance of new symptoms. Compliance is encouraged with any medications and followup testing that is ordered. It is a privilege to be allowed the opportunity to participate in the urologic care of your patient. If you have any questions or concerns regarding treatment for the above conditions please do not hesitate to contact me. The office telephone contact is [phone]. This note is constructed in part using voice recognition software. While every effort has been made to ensure accuracy manager route errors may have been included. Yours sincerely, Alyse Starks MD Scribe Plan - Not visible on output: Patient was informed and verbally consented to the use of an ambient scribe for clinic note documentation during this visit. Coding Level of Care Code Est Pt Level 4 (69982) Complex EM visit Add On G2211 Diagnoses Prostate cancer C61
--- OUTSIDE RECORDS SUMMARY | 2024-07-28 16:56 | XMS_ITS | Encounter Summary ---
Author Organization [employer] Address [address] [place] [address] Care Team Providers Care Education Paraprofessional Name Role Phone Lizy Garcia Primary Care Provider [phone] Shira Mack RN Unavailable [phone] Encounter Details Date Type Department Care Team (Late st Contact Info) Description 07/23/2024 Orders Only GENERIC EXTERNAL DATA DEPARTMENT Provider, Generic External Data Social History Tobacco Use Types Packs/Day Years [...] housing situation today? I have sloane lyles 07/08/[address] you li ve. Do you have problems with any of the following? None of the above 07/08/2024 Food Insecurity Answer Date Recorded Within the past 12 months, y ou worried that your food would run out before you got money to buy more: Never True 07/08/2024 Within the past 12 months,th e food you bought just didn't last and you didn't have enough money to get more: Never True Transportation Answer Date Recorded In the past 12 months, has l ack of transportation kept you from medical appts, meetings, work or from getting things needed for daily living? No 07/08/2024 Utilities Answer Date Recorded In the past 12 months, has t he electric, gas, oil or water company threatened to shut off services in your home? No 07/08/2024 Depression Answer Date Recorded Patient Health Questionnaire-2 Score 0 04/10/2024 Internet Access Answer Date Recorded Internet Access Q1 Yes 07/08/2024 Internet Access Q2 Not on file 07/08/2024 Sex and Gender Information Value Date Recorded Sex Assigned at Male 12/26/2021 10:16 AM EDT Legal Sex Male 10:16 AM EDT Gender Identity Male 12/26/2021 10:16 AM EDT Sexual Orientation Straight 12/26/2021 10 :16 AM EDT documented as of this encounter Plan of Treatment Upcoming Encounters Date Type Department Care Team (Late st Contact Info) Description 09/04/2024 3:00 PM EDT Office Visit [facility] [address] [place] [address] [place], [place], [place] [address] [place] [address] 10/08/2024 3:45 PM EDT Office Visit [facility] [address] [place] [address] Lizy Garcia, ANP [address] [place] [address] documented as of this encounter Procedures Procedure Name Priority Date/Time Associated Diagnosis Comments GLUCOSE, WHOLE BLOOD Routine 07/23/2024 8:24 AM EDT documented in this encounter Results * (ABNORMAL) Glucose, Whole Blood (07/23/2024 8:24 AM EDT) Glucose, Whole Blood 145(H) 60 - 115 mg/dL [facility] Comment:METER #: [id number] 07/23/2024 8:24 AM EDT 07/23/2024 8:49 AM EDT us Generic External Data Provider LAB BLOOD ORDERAB LES Final Result [facility] [address] [place] [address] [phone] documented in this encounter Visit Diagnoses Not on filedocumented in this encounter Additional Health Concerns Assessment Noted Time PHQ-9 Depression Total Score: 0 04/10/19 3:43 PM EST documented as of this encounter Care Teams Education Paraprofessional Relationship Specialty Start Date End Date Lizy Garcia ANP [address] [place] [address] PCP - General Family Medicine 12/24/19 Shira Mack, RN [address] [place] [address] Tube Operator Family Medicine 03/27/24 documented as of this encounter
== END 2024-07-28 16:28 | disposition home or self-care (01) ==
LOC: HO.HUSH 15:53
PROVIDERS: PCP Nurse Practitioner Primary Care; Visit Provider Urology
DX: C61 Malignant neoplasm of prostate (principal); N40.1 Benign prostatic hyperplasia with lower urinary tract symptoms; N13.8 Other obstructive and reflux uropathy

== ENCOUNTER → 2024-07-28 15:53 | Outpatient (BNVA) | payer MEDICAID, SELFPAY | PROVIDERS: PCP Nurse Practitioner Primary Care; Visit Provider Urology | DX: C61 Malignant neoplasm of prostate (principal); N40.1 Benign prostatic hyperplasia with lower urinary tract symptoms; N13.8 Other obstructive and reflux uropathy | CPT/HCPCS: 81003; 99212 ==

== ENCOUNTER 2024-11-26 08:34 | Outpatient (REF) | payer MEDICAID, SELFPAY ==
--- OUTSIDE RECORDS SUMMARY | 2024-11-26 09:04 | XMS_ITS | Clinical Summary ---
Author Organization [facility] Address [address] [place] [address] Care Team Providers Care Senior Pharmacy Technician Name Role Phone [facility] Primary Care Provider [phone] Allergies No known active allergies Medications omeprazole (PriLOSEC) 20 mg capsule SMARTSI Capsule(s) By Mouth Every Morning 10/17/2024 Active Encounters Date Type Department Care Team Description 11/13/2024 3:30 PM EDT Office Visit [facility] [address] [place] [address] Target Network Analyst: Franco Monroe MD Prostate cancer (HCC) (Primary Dx) 09/18/2024 Telephone [facility] [place] [address] [employer] Network Analyst: Bing Pandey Telephone Intake, Staff PAC Appt Request - New 09/11/2024 Telephone [facility] [address] [place] [address] Target Network Analyst: Jason Banks MD from Last 3 Months Social History Tobacco Use Types Packs/Day Years Used Date Smoking Tobacco: Never Assessed Sex and Gender Information Value Date Recorded Sex Assigned at Male 07/29/2024 3:51 PM EDT Legal Sex Male 2:51 PM EDT Gender Identity Male 07/29/2024 3:51 PM EDT Sexual Orientation Choose not to disclose 2024 4:40 PM EDT Last Filed Vital Signs Vital Sign Reading Time Taken Comments Blood Pressure 123/84 11/13/2024 3:08 PM EDT Pulse 85 11/13/2024 3:08 PM EDT Temperature - - Respiratory Rate - - Oxygen Saturation - - Inhaled Oxygen Concentration - - Weight - - Height - - Body Mass Index - - Plan of Treatment Health Maintenance Due Date Last Done Comments Cologuard 1960 Colon Cancer Screening 1960 Colonoscopy 1960 FOBT / Fit Test 1960 Hepatitis C Screening 1960 Sigmoidoscopy 1960 Pneumococcal Vaccine: 50+ Years (1 of 2 - PCV) 1979 COVID-19 Vaccine (3 - Pfizer risk series) 05/18/2021 04/20/2021, 03/30/2021 Alcohol/Substance Use Screening 02/27/2024 Depression Screening and Follow-Up 02/27/2024 Social Drivers of Health Annual Screening 02/27/2024 Influenza Vaccine (#1) 2024 DTaP,Tdap,and Td Vaccines (3 - Td or Tdap) 05/16/2027 05/15/2017, 06/04/2014 RSV Vaccine (60+ years old a nd patients) (1 - 1-dose 75+ series) 2035 HIV Screening Completed 01/09/2020 Zoster Vaccines Completed 01/06/2021, 11/04/2020 Hepatitis B Vaccines Aged Out No long er eligible based on patient's age to complete this topic Insurance [facility] Care Teams Senior Pharmacy Technician Relationship Specialty Start Date End Date [address] [address] PCP - General 07/29/24
--- OUTSIDE RECORDS SUMMARY | 2024-11-26 09:04 | XMS_ITS | Encounter Summary ---
Author Organization [employer] Address [address] [place] [address] Care Team Providers Care Finishing Range Supervisor Name Role Phone Lizy Garcia Primary Care Provider [phone] Shira Mack RN Unavailable [phone] Reason for Visit * Reason Comments Med Refill Encounter Details Date Type Department Care Team ([facility] st Contact Info) Description 05/13/2024 Refill [facility] [address] [place], [place] [phone] Taras Shrestha MD [address] [place], [place] [phone] Dermatophytosis Social History Tobacco Use Types Packs/Day [...] Care Team (Late st Contact Info) Description 12/10/2024 3:00 PM EDT Office Visit [facility] [address] [place] [address] Lizy Garcia ANP [address] [place] [address] documented as of this encounter Visit Diagnoses Diagnosis Dermatophytosis Dermatophytosis of unspecified site documented in this encounter Additional Health Concerns Assessment Noted Time PHQ-9 Depression Total Score: 0 04/10/19 3:43 PM EST documented as of this encounter Care Teams Finishing Range Supervisor Relationship Specialty Start Date End Date Lizy Garcia ANP [address] [place] [phone] PCP - General Family Medicine 12/24/19 Shira Mack, BENY [address] [place] [phone] Picu Nurse Family Medicine 03/27/24 documented as of this encounter
--- OUTSIDE RECORDS SUMMARY | 2024-11-26 09:04 | XMS_ITS | Encounter Summary ---
Author Organization [employer] [facility] Address [address] [place] [address] [address] [place] [address] Care Team Providers Care Independent Insurance Adjuster Name Role Phone Lizy Garcia Primary Care Provider [phone] Shira Mack RN Unavailable [phone] Encounter Details Date Type Department Care Team (Latest Contact Info) Description 01/05/2021 Abstract [facility] CONVERSIONS Dental, Provider, DDS Social History [...] Description 12/10/2024 3:00 PM EDT Office Visit [facility] [address] [place] [address] Lizy Garcia ANP [address] [place] [address] documented as of this encounter Visit Diagnoses Not on filedocumented in this encounter Care Teams Independent Insurance Adjuster Relationship Specialty Start Date End Date Lizy Garcia ANP [address] [place] [address] PCP - General Family Medicine 12/24/19 Shira Mack, RN [address] [place] [phone] Salesforce Consultant Family Medicine 03/27/24 documented as of this encounter
--- OUTSIDE RECORDS SUMMARY | 2024-11-26 09:04 | XMS_ITS ---
Author Name [facility] Organization Unknown Problems Problem Status Onset Date Problem Type Date of Resoluti on Source Prostate cancer (HCC) active EncounterDiagnosisAct CCT Care Team Organization Name Specialty Phone Email Start Date End Da [facility] NO PCP Primary Care 05/25/2023
--- OUTSIDE RECORDS SUMMARY | 2024-11-26 09:04 | XMS_ITS | Encounter Summary ---
Author Organization [employer] Address [address] [facility] 7t [place] [address] Care Team Providers Care Newspaper Journalist Name Role Phone Lizy Garcia Primary Care Provider [phone] Shira Mack RN Unavailable [phone] Reason for Visit * Reason Comments Med Refill Encounter Details Date Type Department Care Team ([facility] st Contact Info) Description 01/21/2023 Refill [facility] MEDICINE [address] [place], [place] [phone] Lizy Garcia ANP [address] [place], [place] [phone] GERD without esophagitis Social History Tobacco Use [...] Description 12/10/2024 3:00 PM EDT Office Visit [facility] MEDICINE [address] [place] [address] Lizy Garcia ANP [address] [place] [address] documented as of this encounter Visit Diagnoses Diagnosis GERD without esophagitis Esophageal reflux documented in this encounter Care Teams Newspaper Journalist Relationship Specialty Start Date End Date Lizy Garcia ANP [address] [place] [phone] PCP - General Family Medicine 12/24/19 Shira Mack, RN [address] [place] [phone] Manager Study Family Medicine 03/27/24 documented as of this encounter
--- OUTSIDE RECORDS SUMMARY | 2024-11-26 09:04 | XMS_ITS | Encounter Summary ---
Author Organization [employer] [facility] Address [address] [place] [address] 7t [place] [address] Care Team Providers Care Banquet Food Server Name Role Phone Lizy Garcia Primary Care Provider [phone] Shira Mack RN Unavailable [phone] Encounter Details Date Type Department Care Team (Latest Contact Info) Description 03/24/2019 Abstract [facility] CONVERSIONS Dental, Provider, DDS Social History [...] Description 12/10/2024 3:00 PM EDT Office Visit [facility] MEDICINE [address] [place] [address] Lizy Garcia ANP 230 [place] [address] documented as of this encounter Visit Diagnoses Not on filedocumented in this encounter Care Teams Banquet Food Server Relationship Specialty Start Date End Date Lizy Garcia ANP 230 [place], [place] PCP - General Family Medicine 12/24/19 Shira Mack, RN [address] [place] [address] Car Runner Family Medicine 03/27/24 documented as of this encounter
--- OUTSIDE RECORDS SUMMARY | 2024-11-26 09:05 | XMS_ITS | Clinical Summary ---
Author Organization [facility] Address [address] [place] [address] Care Team Providers Care Chef'S Assistant Name Role Phone Pcp, No Primary Care [...] COVID-19 Vaccine ( - 2023-2 5 season) 2024 RSV Vaccine 60 years and old er and Patients (1 - 1-dose 75+ series) 2035 Hepatitis B Vaccines Aged Out No long er eligible based on patient's age to complete this topic Care Teams Chef'S Assistant Relationship Specialty Start Date End Date PcpCheri PCP - General General Medicine 05/24/23
--- OUTSIDE RECORDS SUMMARY | 2024-11-26 09:05 | XMS_ITS | Clinical Summary ---
Author Organization [employer] Address 75 [facility] 7t [place] [address] Care Team Providers Care System Controller Name Role Phone Lizy Garcia Primary Care Provider [phone] Shira Mack RN Unavailable [phone] Allergies No known active allergies Medications insulin degludec (Tresiba FlexTouch) 100 UNIT/ML injectionIndicat ions:Hyperglycem ia due to diabetes mellitus (HCC) Inject 10 Units under the skin Once daily. 3 mL 3 5 026 Active FREESTYLE LITE test stripIndications :Hyperglycemia due to diabetes mellitus (HCC) Use to test blood sugar 3 times daily 100 each 12 5 026 Active Lancets miscIndications: Hyperglycemia due to diabetes mellitus (HCC) Use to test blood sugar 3 times daily 100 each 5 Active Alcohol Swabs 70 % padsIndications: Hyperglycemia due to diabetes mellitus (HCC) Use to clean skin before checking blood sugar 100 each 11 5 Active Blood Glucose Monitoring Suppl (FreeStyle Ruskin Lite) w/Device kitIndications:H yperglycemia due to diabetes mellitus (HCC) Use to test blood sugar 3 times daily 1 kit 5 Active atorvastatin (Lipitor) 20 MG tabletIndication s:Dyslipidemia Take 1 tablet at bedtime once daily 90 tablet 3 5 Active tadalafil (Cialis) 5 MG tabletIndication s:Erectile dysfunction, unspecified erectile dysfunction type Take 1 tablet (5 mg) by mouth Once per day. 30 tablet 1 5 Active senna-docusate sodium (Senokot-S) 8.6-50 MG tabletIndication s:Constipation, unspecified constipation type Take 1 tab once daily for constipation 90 tablet 1 5 Active Continuous Glucose Sensor (FreeStyle Jey 2 Sensor) miscIndications: New onset type 2 diabetes mellitus (HCC) Apply 1 sensor every 14 days 2 each 5 Active glucose blood (FreeStyle Precision Junior Test) test stripIndications :New onset type 2 diabetes mellitus (HCC) Use to test blood sugar 3 times daily 100 each 12 5 026 Active Continuous Glucose Outpatient Receptionist (FreeStyle Jey 2 [place]) deviceIndication s:New onset type 2 diabetes mellitus (HCC) SCAN SENSOR EVERY 8 HOURS 2 each 5 Active polycarbophil (FiberCon) 625 MG tabletIndication s:Constipation, unspecified constipation type Take 1 tablet (625 mg) by mouth Once per day. For constipation 90 tablet 1 5 026 Active pen needle 33G x 4 mm miscIndications: Hyperglycemia due to diabetes mellitus (HCC) Use with tresiba once daily 100 each 12 5 026 Active metFORMIN XR (Glucophage-XR) 500 MG 24 hr tabletIndication s:New onset type 2 diabetes mellitus (HCC) TAKE 1 TABLET TWICE DAILY WITH FOOD. 180 tablet 1 5 Active docusate sodium (Colace) 100 MG capsule take 1 capsule by mouth everyday at bedtime 5 Active BD Pen Needle [place] 2nd Gen 32G X 4 MM misc USE WITH TRESIBA ONCE DAILY 5 Active omeprazole (PriLOSEC) [address] capsuleIndicatio ns:GERD without esophagitis TAKE 1 CAPSULE (20 MG) BY MOUTH BEFORE BREAKFAST DO NOT CRUSH OR CHEW 90 capsule 1 5 Active Active Problems Problem Noted Date Diagnosed Date Hyperglycemia due to diabetes mellitus 5 Type 2 diabetes mellitus with hyperlipidemia Crowded teeth 02/26/2024 Periodontal disease 02/26/2024 Dental [...] specific antigen 06/13/2019 Malignant tumor of prostate ([facility]/HCC) 05/28/2019 Anterior knee pain 01/30/2018 Dyslipidemia 01/30/2018 Lateral epicondylitis 01/30/2018 Acute low back pain 09/10/2017 Erectile dysfunction 01/01/2017 Heartburn 04/18/2016 Hypercholesterolemia 04/18/2016 Pain in left leg 04/18/2016 Encounters Date Type Department Care Team Description 11/24/2024 Telephone [facility] [address] [place] [address] Shira Mack, fire loss prevention engineer Orders 10/22/2024 3:30 PM EDT Clinical Support [facility] [address] [place] [address] Shira Mack, RN Memory loss 10/22/2024 Travel 10/17/2024 Refill [facility] [address] [place] [address] Lizy Garcia ANP GERD without esophagitis 10/08/2024 3:45 PM EDT Office Visit [facility] [address] [place] [address] Lizy Garcia ANP Memory loss (Primary Dx); Type 2 diabetes mellitus with hyperlipidemia ([facility]/HCC) ([facility]); Vitiligo; Hemorrhoids, unspecified hemorrhoid type 10/08/2024 Travel 10/07/2024 Telephone [facility] [address] [place] [address] Lizy Garcia ANP CHART PREP 10/02/2024 9:15 AM EDT Office Visit [facility] [address] [place], [place] [phone] [place], Lulú, OD Presbyopia (Primary Dx) 09/04/2024 3:00 PM EDT Office Visit [facility] [address] [place], [place] [phone] Lulú Kat, OD Suspicious optic nerve cupping of both eyes (Primary Dx); Age-related nuclear cataract of both eyes; S/P LASIK (laser assisted in situ keratomileusis); Presbyopia 09/04/2024 Travel 08/28/2024 Orders Only [facility] [address] [place] [address] Lizy Garcia ANP New onset type 2 diabetes mellitus (CMS/HCC) 08/28/2024 Refill [facility] [address] [place] [address] Lizy Garcia ANP New onset type 2 diabetes mellitus (CMS/HCC) from Last 3 Months Immunizations Immunization Administration Dates Next Due Pfizer Covid-19 Vaccine [...] Sign Reading Time Taken Comments Blood Pressure 118/84 10/22/2024 3:51 PM EDT Pulse 70 10/08/2024 4:10 PM EDT Temperature 36.6 C (97.8 F) 04/10/2024 3:00 PM EST Respiratory Rate 16 10/08/2024 4:10 PM EDT Oxygen Saturation 99% 04/10/2024 3:00 PM EST Inhaled Oxygen Concentration - - Weight 78 kg (172 lb) 10/08/2024 4:10 PM EDT Height 167.6 cm (5' 6 ) 10/08/2024 4:10 PM EDT Body Mass Index 27.76 10/08/2024 4:10 PM EDT Plan of Treatment Upcoming Encounters Date Type Department Care Team (Late st Contact Info) Description 12/10/2024 3:00 PM EDT Office Visit [facility] [address] [place] [address] Lizy Garcia, ANP [address] [place] [address] Health Maintenance Due Date Last Done Comments CT Colonography 1960 FIT DNA/Cologuard 1960 FIT 1960 FOBT 1960 Sigmoidoscopy 1960 Diabetes: Foot Exam 1970 Diabetes: Urine Protein Screening 1979 Pneumococcal Vaccine: 50+ Years (1 of 2 - PCV) 1979 Lipid Panel 03/10/2023 03/10/2022, 01/09/2020 Dental Oral Exam 08/26/2024 02/26/2024, , 01/05/2021, Additional history exists Dental Prophylaxis 08/26/2024 02/26/2024, 1 03/07/2020, 03/24/2019, Additional history exists COVID-19 Vaccine ( season) 2024 04/20/2021, 03/30/2021 Influenza Vaccine (#1) 2024 Diabetes: Hemoglobin A1C 01/08/2025 025, 07/08/2024, 04/10/2024, Additional history exists Dental X-Ray: Bitewings 02/26/2025 02/26/20 24, 01/24/2023, 01/05/2021, Additional history exists Depression Screening 04/10/2025 04/10/2024, 04/10/19 25 Alcohol/Substance Use Screening 07/08/2025 07/08/2024 Disability Screening 07/08/2025 07/08/2024 SDOH Screening 07/08/2025 07/08/2024 Tobacco Screening 10/08/2025 10/08/2024 Dental X-Ray: Full Mouth 01/25/2026 023, 01/05/2021, 09/04/2014 Eye Exam 09/04/2026 09/04/2024, 08/26, 09/04/2024, Additional history exists DTaP/Tdap/Td Vaccines (3 - Td or Tdap) 05/16/2027 05/15/2017, 06/04/2014 Colonoscopy 07/23/2029 05/24/2020 Colorectal Cancer Screening 07/23/2029 RSV Patients and Patients Aged 60 years [...] patient's age to complete this topic Meningococcal B Vaccine Aged Out No l onger eligible based on patient's age to complete [...] Procedure Name Priority Date/Time Associated Diagnosis Comments POCT GLYCATED HEMOGLOBIN, TOTAL Routine 10/08/2024 4:13 PM EDT Type 2 diabetes mellitus with hyperlipidemia (CMS/HCC) (CMS/HCC) POCT GLUCOSE Routine 10/08/2024 4:11 PM EDT Type 2 diabetes mellitus with hyperlipidemia (CMS/HCC) (CMS/HCC) OPTIC DISC PHOTOS - OU - BOTH EYES Routine 09/04/2024 3:00 PM EDT Suspicious optic nerve cupping of both eyes Full PROPHYLAXIS - ADULT Routine 02/26/2024 11:00 [...] Relevant to Health Maintenance Results * (ABNORMAL) POCT HGB A1C (10/08/2024 4:13 PM EDT) Hemoglobin A1C 6.9(A) 4.0 - 5.7 % QC Media Lot # [id number] Lot# Expiration Date 162, Blood 10/08/2024 4:13 PM EDT Lizy Garcia [facility] POINT OF CARE TEST ENTER/EDIT OR DERABLES Final Result * POCT Glucose (10/08/2024 4:11 PM EDT) Glucose Blood, POC 155 60 - 200 mg/dL QC Media Lot # [id number] Lot# Expiration Date 738, Blood Capillary blood specimen / Unknown 10/08/2024 4:11 PM EDT Lizy Garcia [facility] POINT OF CARE TEST ENTER/EDIT OR DERABLES Final Result * Optic Disc Photos - OU - Both Eyes (09/04/2024 3:00 PM EDT) Narrative Lulú Kat, OD - 09/18/2024 11:04 AM EDT Images from the original result were not included. OPTIC NERVE PHOTO INTERPRETION Optic Nerve Photo Interpretation Test Details: Photo quality: OD: good OS: good Cup to disc ratio: OD vertical: 0.75 OD horizontal: 0.65 OS vertical: 0.75 OS horizontal: 0.65 Rim characteristics: OD: thin 360 degrees OS: thin superiorly Assessment and Plan: Large optic nerve cupping in both eyes. Stable to 2018 records. No suspicion for glaucoma at this time. Will monitor in 1 year with an optic nerve OCT. us Lulú Kat OD OPHTH PHOTOGRAPHY Final Resul t * (ABNORMAL) Lipid Panel, Standard (03/10/2022 8:51 AM EST) Cholesterol, Total 246(H) <200 mg/dL [facility] [place] [employer] HDL Cholesterol 44 > OR = 40 mg/dL [facility] Triglycerides 242(H) <150 mg/dL [facility] [employer] [place] [facility] Comment: If a non-fasting specimen was collected, consider repeat triglyceride testing on a fasting specimen if clinically indicated. Edward et al. J. of Clin. Lipidol. 2015;9:129-169. LDL Cholesterol 161(H) mg/dL (calc) [facility] Comment: Reference range: <100 Desirable range <100 mg/dL for primary prevention; <70 mg/dL for patients with CHD or diabetic patients with > or = 2 CHD risk factors. LDL-C is now calculated using the Juarez-Debby calculation, which is a validated novel method providing better accuracy than the Friedewald equation in the estimation of LDL-C. Juarez SS et al. AMIRA. 2013;310(19): 4307-5841 (http://education.Mobile Realty Apps/faq/QID233) Chol/HDLC Ratio 5.6(H) <5.0 (calc) [employer] [place] [employer] Non-HDL Cholesterol 202(H) <130 mg/dL (calc) [facility] Comment: For patients with diabetes plus 1 major ASCVD risk factor, treating to a non-HDL-C goal of <100 mg/dL (LDL-C of <70 mg/dL) is considered a therapeutic option. Blood Venous blood specimen / Unknown 03/10/2022 8:51 AM EST 03/10/2022 8:51 AM EST Narrative [facility] - 03/13/2022 1:26 PM EST FASTING:YES FASTING: YES [facility] LAB BLOOD ORDERABLES Final Resul t [facility] [address] [facility], [place] [address] [employer] [place] [employer] [address] [facility], ([address]) [place] [address] * Colonoscopy (05/24/2020) Colonoscopy Normal Normal Historical Provider HEALTH MAINTENANCE Final Result * HEPATITIS C AB W/REFL TO HCV RNA, QN, PCR (01/09/2020 10:22 AM EST) HEPATITIS C ANTIBODY NON-REACT GIOVANNY NON-REACT GIOVANNY [facility] INDEX 0.02 <1.00 [facility] Comment: HCV antibody was non-reactive. There is no laboratory evidence of HCV infection. In most cases, no further action is required. However, if recent HCV exposure is suspected, a test for HCV RNA (test code 02978) is suggested. For additional information please refer to http://Innolight/faq/IBB01f0 (This link is being provided for informational/ educational purposes only.) HEPATITIS C ANTIBODY NON-REACT GIOVANNY NON-REACT GIOVANNY [facility] INDEX 0.02 <1.00 [facility] Comment: HCV antibody was non-reactive. There is no laboratory evidence of HCV infection. In most cases, no further action is required. However, if recent HCV exposure is suspected, a test for HCV RNA (test code 16305) is suggested. For additional information please refer to http://Innolight/faq/IXJ90b4 (This link is being provided for informational/ educational purposes only.) HEPATITIS C ANTIBODY NON-REACT GIOVANNY NON-REACT GIOVANNY [facility] INDEX 0.02 <1.00 [facility] Comment: HCV antibody was non-reactive. There is no laboratory evidence of HCV infection. In most cases, no further action is required. However, if recent HCV exposure is suspected, a test for HCV RNA (test code 94637) is suggested. For additional information please refer to http://Innolight/faq/LMW40r8 (This link is being provided for informational/ educational purposes only.) 01/09/2020 10:2 2 AM EST us Lizy Garcia ANP HISTORICAL/NON ORDERABLE LABS Fi nal Result [facility] [address] * HIV 1/2 ANTIGEN/ANTIBODY,FOURTH GENERATION W/RFL (01/09/2020 10:22 AM EST) HIV-1/2 ANTIGEN AND ANTIBODIES, 4TH GENERATION W/ REFLEX NON-REACT [facility]NY NON-REACT [facility] Comment: HIV-1 antigen and HIV-1/HIV-2 antibodies were not detected. There is no laboratory evidence of HIV infection. PLEASE NOTE: This information has been disclosed to you from records whose confidentiality may be protected by state law. If your state requires such protection, then the state law prohibits you from making any further disclosure of the information without the specific written consent of the person to whom it pertains, or as otherwise permitted by law. A general authorization for the release of medical or other information is NOT sufficient for this purpose. For additional information please refer to http://Ekahau.Ontela.Xi'an 029ZP.com/faq/YLC415 (This link is being provided for informational/ educational purposes only.) The performance of this assay has not been clinically validated in patients less than 2 years old. HIV-1/2 ANTIGEN AND ANTIBODIES, 4TH GENERATION W/ REFLEX NON-REACT GIOVANNY NON-REACT [facility] Comment: HIV-1 antigen and HIV-1/HIV-2 antibodies were not detected. There is no laboratory evidence of HIV infection. PLEASE NOTE: This information has been disclosed to you from records whose confidentiality may be protected by state law. If your state requires such protection, then the state law prohibits you from making any further disclosure of the information without the specific written consent of the person to whom it pertains, or as otherwise permitted by law. A general authorization for the release of medical or other information is NOT sufficient for this purpose. For additional information please refer to http://Ekahau.Ontela.Xi'an 029ZP.com/faq/VND619 (This link is being provided for informational/ educational purposes only.) The performance of this assay has not been clinically validated in patients less than 2 years old. HIV-1/2 ANTIGEN AND ANTIBODIES, 4TH GENERATION W/ REFLEX NON-REACT GIOVANNY NON-REACT [facility] Comment: HIV-1 antigen and HIV-1/HIV-2 antibodies were not detected. There is no laboratory evidence of HIV infection. PLEASE NOTE: This information has been disclosed to you from records whose confidentiality may be protected by state law. If your state requires such protection, then the state law prohibits you from making any further disclosure of the information without the specific written consent of the person to whom it pertains, or as otherwise permitted by law. A general authorization for the release of medical or other information is NOT sufficient for this purpose. For additional information please refer to http://education.Ontela.Xi'an 029ZP.com/faq/NRF132 (This link is being provided for informational/ educational purposes only.) The performance of this assay has not been clinically validated in patients less than 2 years old. 01/09/2020 10:2 2 AM EST [facility] LAB BLOOD ORDERABLES Final Resul t [facility] [address] from Last 3 Months or Most Recently Relevant to Health Maintenance Insurance [facility] C3 DENTAL-[facility] MEDICAID STAND ADULT Care Teams System Controller Relationship Specialty Start Date End Date Lizy Garcia ANP [address] [place] [address] PCP - General Family Medicine 12/24/19 Shira Mack RN [address] [place] [address] Cleaning Laborer Family Medicine 03/27/24
--- OUTSIDE RECORDS SUMMARY | 2024-11-26 09:05 | XMS_ITS | Encounter Summary ---
Author Organization [employer] Address [address] [facility] 7t [place] [address] Care Team Providers Care Speech Writer Name Role Phone Lizy Garcia Primary Care Provider [phone] Shira Mack RN Unavailable [phone] Reason for Visit * Reason Onset Date Comments Lab Orders 11/24/2024 Encounter Details Date Type Department Care Team (Late st Contact Info) Description 11/24/2024 Telephone [facility] MEDICINE [address] [place], [place] [phone] Shira Mack, RN [address] [place], [place] [phone] Lab Orders Social History Tobacco Use Types Packs/Day Years [...] your housing situation today? I have sloane sing 07/08/[address] you li [...] encounter Miscellaneous Notes * Telephone Encounter - Kailey Mendez RN - 11/25/2024 10:31 AM EDT Telephone call to pt, advised that PCP ordered CT of the head, sent Doximity text with contact infofor [facility] Centralized Scheduling. Advised him to get outstanding labs completed when possible, pt verbalized understanding. * Telephone Encounter - Shira Mack RN - 11/24/2024 3:54 PM EDT Telephone call placed to pt regarding below message. No answer, left v/m. Will retask. Thank you! Please ask James to get labs as ordered and I have also ordered a head CT. documented in this encounter Plan of Treatment Upcoming Encounters Date Type Department Care Team ([facility] st Contact Info) Description 12/10/2024 3:00 PM EDT Office Visit [facility] MEDIC[facility] [address] [place] [address] Lizy Garcia ANP [address] [place] [address] documented as of this encounter Visit Diagnoses Not on filedocumented in this encounter Additional Health Concerns Assessment Noted Time PHQ-9 Depression Total Score: 0 04/10/19 25 3:43 PM EST documented as of this encounter Care Teams Speech Writer Relationship Specialty Start Date End Date Lizy Garcia ANP [address] [place] [address] PCP - General Family Medicine 12/24/19 Shira Mack RN [address] [place] [address] Pouncer Machine Family Medicine 03/27/24 documented as of this encounter
--- OUTSIDE RECORDS SUMMARY | 2024-11-26 09:05 | XMS_ITS | Encounter Summary ---
Author Organization [facility] Address [address] [place] [address] Care Team Providers Care Catalyst Unit Operator Name Role Phone Pcp, No Primary Care Provider Unavailabl e Encounter Details Date Type Department Care Team (Late st Contact Info) Description 05/25/2023 Scanned Document [facility] Urologic Surgery [place] [address] [facility] [address] [place] [address] Mariam Rankin [place] 201 No [facility] [address] [place] [address] Social History Tobacco Use Types Packs/Day Years [...] on filedocumented in this encounter Care Teams Catalyst Unit Operator Relationship Specialty Start Date End Date Pcp, No PCP - General General Medicine 05/24/23 documented as of this encounter
[2024-11-26 09:06] LABS: MANUAL DIFF FLAG NO
[2024-11-26 09:29] LABS: Hematocrit 46.1 % (42.0-52.0); Hemoglobin 15.8 g/dl (14.0-18.0); Imm Gran Abs Auto 0.08 X10*3/uL (0.00-0.03); Imm Gran Pct Auto 1.1 % (0.0-0.4); Lymphocytes Absolute Auto 2.4 X10*3/uL (1.2-4.9); Mean Corpuscular HGB Conc 34.3 g/dl (31.0-36.0); Mean Corpuscular Hemoglobin 30.9 pg (27.0-33.0); Mean Corpuscular Volume 90.0 fL (80.0-98.0); NRBC Abs Auto 0.000 X10*3/uL (0.0-0.012); NRBC Pct Auto 0.0 /100WBC (0.0-0.2); Platelet Count 249 X10*3/uL (160-400); Red Blood Count 5.12 X10*6/uL (4.60-5.80); White Blood Count 7.1 X10*3/uL (4.8-10.8)
[2024-11-26 10:21] LABS: Cholesterol 276 mg/dL (<200); HDL Cholesterol 44 mg/dL (>40); Iron 155 mcg/dL (45-160); Percent Iron Saturation 60 % (15-50); Total Iron Binding Capacity 259 mcg/dL (228-428); Triglycerides 232 mg/dL (<150); Unsaturated Iron Binding 104 ug/dL
[2024-11-26 10:29] LABS: Syphilis Screen Reactive (Nonreactive)
[2024-11-26 10:35] LABS: PSA,Total (Free>4and<10) 14.95 ng/mL (0.00-4.00)
[2024-11-26 10:39] LABS: Vitamin B12 374 pg/mL (200-900)
[2024-11-26 10:45] LABS: Ferritin 976 ng/mL (20-250)
[2024-11-28 10:08] LABS: Anti Nuclear Antibody Screen NEGATIVE (NEGATIVE)
[2024-12-04 15:12] LABS: T.Pallidum Particle Agg Test Reactive (Nonreactive)
== END 2024-11-26 08:35 | disposition home or self-care (01) ==
LOC: HO.LAB 08:34
PROVIDERS: Urology; PCP Nurse Practitioner Primary Care; Visit Provider Nurse Practitioner Primary Care
DX: C61 Malignant neoplasm of prostate (principal); E11.65 Type 2 diabetes mellitus with hyperglycemia; E78.5 Hyperlipidemia, unspecified; L80 Vitiligo; R41.3 Other amnesia
CPT/HCPCS: 36415; 80061; 82607; 82728; 83036; 83540; 84153; 84443; 85025; 85652; 86038; 86140; 86376; 86592; 86780

== ENCOUNTER 2024-12-01 15:51 | Outpatient (AMB) | payer MEDICAID, SELFPAY ==
--- NOTE | 2024-12-01 15:30 | A.OFFVIS_ITS ---
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 He is referred to [facility] for definitive treatment for prostate cancer. History of Present Illness The patient is a 64-year-old male presenting with a follow-up for prostate cancer management. The patient had a prostate-specific antigen (PSA) test on November 26, 2024, which resulted in a level of 14.95. He has been referred to [facility] for definitive treatment options, including potential surgical intervention. The patient is considering surgical management, but has expressed the need to delay any intervention until February due to personal commitments. 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 Additionally, the patient reports a history of hemorrhoids, which have been bleeding for approximately two years. He has been using a cortisone cream to manage the symptoms, but the bleeding persists. A referral to general surgery for potential hemorrhoid ligation has been discussed, with the patient expressing a desire to address this issue before proceeding with prostate cancer treatment. Results - Labs: Prostate-specific antigen (PSA) level of 14.95 on November 26, 2024 Plan 1. Prostate Cancer - Referral to [facility] for definitive treatment options, including potential surgical intervention. - Patient considering treatment options, with a decision expected by February. 2. Hemorrhoids - Referral to general surgery for potential hemorrhoid ligation due to persistent bleeding. 07/28/24--James is a 64-year-old male who has been on active surveillance for localized prostate cancer he is here after completing a pelvic MRI. History of Present Illness The patient is a 64-year-old male presenting with a follow-up for prostate cancer management. The patient underwent a prostate MRI which revealed that the neoplasm remains localized within the prostate, with no invasive spread to surrounding structures or lymphatic involvement. The last PSA measurement, dated May 23, indicated a level of 14.36. The patient had prior Polaris test that was performed on an earlier biopsy date of report 08/09/2020 reported as a low- risk score of 2.5. The role of surgical intervention or radiation was discussed as potential options, and I advised the patient to consult Dr. Renae, a urology oncologist, to further deliberate on surgical considerations. CoMorbidity - pre-Diabetes , the patient has changed his diet, adjustments have contributed to stable glucose readings. The patient was evaluated by GI due to complaints of rectal bleeding, he states he had a colonoscopy with was within normal limits. Urinary symptoms have diminished in frequency, with the improvement in his blood sugars Urinary Symptoms Review - Reduced frequency and severity of urinary symptoms with better glucose control Results - Prostate MRI: prostate right mid zone PIRADS 3 and 5, no obvious spread to nearby organs or lymph nodes - PSA level (May 23, 2024): 14.36 ng/mL - 08/09/2020--Polaris Score: 2.5 06/02/24--James is a 64-year-old male who has been followed for active surveillance in the past for prostate cancer. He lost his insurance and his PSA has now gone up to 14.36. He had previous prostate biopsy which noted cancer group 1 and group 2 The patient states that his diabetes has been under better control and he states he changed his diet to more fruits and vegetables and his fingersticks have been in the 120s and he has noticed decreased urinary frequency. I have discussed further evaluation with MRI of the prostate and a PET body scan. The patient also complains of blood after having a bowel movement when he wipes and he feels that he may have a hemorrhoid he has been given an ointment by his PCP which has helped with the itching but he still has pain. I will refer him to General surgery for evaluation for surgical management. 03/22/23--James is here for evaluation for elevated PSA, he was last seen by Dr. Dunham in 2020 and was placed on active surveillance for low volume prostate cancer. The patient states he has not followed up with a Urologist since that time. He had been prescribed proscar and tadalfil, in the past. He did not get the repeat PSA -- PSA was 9.94 on 07/27/20 03/22/23-- s/p repeat Prostate biopsy on 03/13/23- results detailed below in the results section: Group 1 and group 2 - involving both the right and left sides of the prostate. I want him to have 2nd opinion with Dr. Alfaro to evaluate regarding surgery. Review of chart: Erectile dysfunction Did have some response to tadalafil. Lower urinary tract symptoms Has narrowing of stream Nocturia times 2-3 Will benefit from combination tamsulosin and finasteride Tamsulosin added to finasteride prescription Prostate cancer PSA-- 05/15 --7.1, PSA --08/16 --9.9 Adenocarcinoma of the prostate (T1c N0 M0, Buffalo score 7, Grade Group 2 , PSA at Diagnosis) NCCN favorable intermediate Prostate cancer was diagnosed Dr Dunham May 2019 Diagnosis was reached by - needle biopsy - , for elevated PSA 7.6 - , size at TRUS. The Traci grade is 3+4 Date: May 2019 12 Core biopsy Positive Biopsies: 4 - 3+4 right base lateral, 3+3 right base medial, right mid medial, right apex medial Negative Biopsies: Buffalo 4 or 5: < 5% total (%) Positive: 10% total Locations: TNM Classification of Malignant Tumours (TNM) - , T1c The D'Kirk (NCCN) risk category is - - Favorable Intermediate Risk (PSA 10-20, Gl 7, T2) Group 2 Initial therapy included - active surveillance [facility] Medical History Diabetes Prostate cancer GERD (gastroesophageal reflux disease) Elevated cholesterol Erectile dysfunction BPH (benign prostatic hyperplasia) Surgical History Hx of prostate biopsy H/O knee surgery H/O colonoscopy Family History Mother Advancing dementia Social History Household Members: Spouse Are you a primary pharmacist critical care to a significant other at home: No Do you presently have visiting nurse or other home services: No Alcohol intake: current Alcohol intake frequency: holidays/special occasions only Alcohol type: beer Patient Tobacco Use Status: Never used Tobacco Review of Systems Const All systems reviewed & are unremarkable except as noted in HPI and below Reports no additional complaints Eyes Reports no additional complaints ENT Reports no additional complaints Card Reports no additional complaints Resp Reports no additional complaints GI Reports no additional complaints Reports as per HPI Musc Reports no additional complaints Skin/Breast Reports system reviewed and no additional complaints, except as documented Neuro Reports no additional complaints Psych Reports no additional complaints Endo Reports no additional complaints Joseph/Lymph Reports no additional complaints Aller/Immun Reports no additional complaints Telehealth Telehealth Telehealth Platform: [facility] Location of provider rendering services: practice address Location of patient: address on file Patient Identification confirmed using: Name, : Yes Telehealth method: video Patient verbally consented to treatment: Yes Patient verbally consented to billing insurance company: Yes Patient informed of any privacy concerns related to visit: Yes Assessment & Plan Assessment & Plan (1) Bleeding hemorrhoid: Code(s): K64.9 - Unspecified hemorrhoids Category: Medical (2) Prostate cancer: Code(s): C61 - Malignant neoplasm of prostate Category: Medical Plan Plan 1. Prostate Cancer - Referral to [facility] for definitive treatment options, including potential surgical intervention. - Patient considering treatment options, with a decision expected by February. 2. Hemorrhoids - Referral to general surgery for potential hemorrhoid ligation due to persistent bleeding. Orders: Referrals General Surgery Referral K64.9 - Unspecified hemorrhoids Patient Instructions: The patient had an opportunity to ask questions regarding treatment plan. The patient expressed understanding and agreement with the above treatment plan. The patient is aware they should contact our office by phone for worsening of their current condition or the appearance of new symptoms. Compliance is encouraged with any medications and followup testing that is ordered. It is a privilege to be allowed the opportunity to participate in the urologic care of your patient. If you have any questions or concerns regarding treatment for the above conditions please do not hesitate to contact me. The office telephone contact is [phone]. This note is constructed in part using voice recognition software. While every effort has been made to ensure accuracy drug safety physician errors may have been included. Yours sincerely, Alyse Starks MD Scribe Plan - Not visible on output: Patient was informed and verbally consented to the use of an ambient scribe for clinic note documentation during this visit. Coding Level of Care Code Tele Est Pt Level 4 (74919) Diagnoses Bleeding hemorrhoid K64.9 Prostate cancer C61
--- OUTSIDE RECORDS SUMMARY | 2024-12-01 18:09 | XMS_ITS | Clinical Summary ---
Author Organization [facility] Address [address] [place] [address] Care Team Providers Care Press Set Up Name Role Phone [facility] Primary Care Provider [phone] Allergies No known active allergies Medications omeprazole (PriLOSEC) 20 mg capsule SMARTSI Capsule(s) By Mouth Every Morning 10/17/2024 Active Encounters Date Type Department Care Team Description 11/13/2024 3:30 PM EDT Office Visit [facility] [address] [place] [address] Repairer Maintenance Building: Franco Monroe MD Prostate cancer (HCC) (Primary Dx) 09/18/2024 Telephone [place] [address] Repairer Maintenance Building: Bing Pandey Telephone Intake, Staff PAC Appt Request - New 09/11/2024 Telephone [facility] [address] [place] [address] Repairer Maintenance Building: Jason Banks MD from Last 3 Months [...] patient's age to complete this topic Insurance [facility] Care Teams Press Set Up Relationship Specialty Start Date End Date [address] [address] PCP - General 07/29/24
--- OUTSIDE RECORDS SUMMARY | 2024-12-01 18:09 | XMS_ITS | Encounter Summary ---
Author Organization [employer] Address [address] [facility] [facility] [address] [place] [address] Care Team Providers Care Radial Router Operator Name Role Phone Lizy Garcia Primary Care Provider [phone] Shira Mack RN Unavailable [phone] Encounter Details Date Type Department Care Team ([facility] st Contact Info) Description 11/26/2024 Results Follow-Up [facility] [address], [place] [phone] Lizy Garcia ANP [address] [place], [place] [phone] PSA, Total With Reflex to PSA, Free Social History Tobacco Use Types Packs/Day Years [...] Description 12/10/2024 3:00 PM EDT Office Visit [facility] [address] [place] [address] Lizy Garcia ANP [address] [place] [address] documented as of this encounter Visit Diagnoses Not on filedocumented in this encounter Additional Health Concerns Assessment Noted Time PHQ-9 Depression Total Score: 0 04/10/19 3:43 PM EST documented as of this encounter Care Teams Radial Router Operator Relationship Specialty Start Date End Date Lizy Garcia ANP [address] [place] [id number] PCP - General Family Medicine 12/24/19 Shira Mack, BENY [address] [place] [id number] Rn Intake Family Medicine 03/27/24 documented as of this encounter
--- OUTSIDE RECORDS SUMMARY | 2024-12-01 18:09 | XMS_ITS | Clinical Summary ---
Author Organization [employer] Address [address] [place] [address] Care Team Providers Care Director Water And Waste Services Name Role Phone Lizy Garcia Primary Care Provider [phone] Shira Mack RN Unavailable [phone] Allergies No known active allergies Medications [...] 5 Active Blood Glucose Monitoring Suppl (FreeStyle [place] Lite) w/Device kitIndications:H yperglycemia due to diabetes [...] each 12 5 026 Active Continuous Glucose [employer] Combination Teacher (FreeStyle Jey 2 Burkett) deviceIndication s:New onset type 2 diabetes mellitus [...] specific antigen 06/13/2019 Malignant tumor of prostate (CMS/HCC) 05/28/2019 Anterior knee pain 01/30/2018 Dyslipidemia 01/30/2018 Lateral epicondylitis 01/30/2018 Acute low back pain 09/10/2017 Erectile dysfunction 01/01/2017 Heartburn 04/18/2016 Hypercholesterolemia 04/18/2016 Pain in left leg 04/18/2016 Encounters Date Type Department Care Team Description 11/28/2024 Results Follow-Up [address] [address] Lizy Garcia ANP POCT Glucose, POCT HGB A1C, Vitamin B12, Additional followed-up results: 9 11/26/2024 Results Follow-Up [address] [address] Lizy Garcia ANP PSA, Total With Reflex to PSA, Free 11/26/2024 Orders Only GENERIC EXTERNAL DATA DEPARTMENT Provider, Generic External Data 11/24/2024 [address] [place] [address] Shira Mack, sustainability executive director Orders 10/22/2024 3:30 PM EDT Clinical Support [address] [address] Shira Mack, RN Memory loss 10/22/2024 Travel 10/17/[address] [address] Lizy Garcia ANP GERD without esophagitis 10/08/2024 3:45 PM EDT Office Visit [address] [address] Lizy Garcia ANP Memory loss (Primary Dx); Type 2 diabetes mellitus with hyperlipidemia (CMS/HCC) ([facility]); Vitiligo; Hemorrhoids, unspecified hemorrhoid type 10/08/2024 Travel 10/07/2024 Telephone [facility] [address] [place] [address] Lizy Garcia, MARY CHART PREP 10/02/2024 9:15 AM EDT Office Visit [facility] [address] [place] [address] North, Lulú, OD Presbyopia (Primary Dx) 09/04/2024 3:00 PM EDT Office Visit [facility] [address] [place] [address] North Lulú, OD Suspicious optic nerve cupping of both eyes (Primary Dx); Age-related nuclear cataract of both eyes; S/P LASIK (laser assisted in situ keratomileusis); Presbyopia 09/04/2024 Travel from Last 3 Months Immunizations Immunization Administration [...] Description 12/10/2024 3:00 PM EDT Office Visit [facility] [address] [place] [address] Lizy Garcia ANP [address] [place] [address] Health Maintenance Due Date Last Done Comments CT Colonography 1960 FIT DNA/Cologuard 1960 FIT 1960 FOBT 1960 Sigmoidoscopy 1960 Diabetes: Foot Exam 1970 Diabetes: Urine Protein Screening 1979 Pneumococcal Vaccine: 50+ Years (1 of 2 - PCV) 1979 Dental Oral Exam 08/26/2024 02/26/2024, , 01/05/2021, Additional history exists Dental Prophylaxis 08/26/2024 02/26/2024, 1 03/07/2020, 03/24/2019, Additional history exists COVID-19 Vaccine (3 - season) 2024 04/20/2021, 03/30/2021 Influenza Vaccine (#1) 2024 Dental X-Ray: Bitewings 02/26/2025 02/26/20 24, 01/24/2023, 01/05/2021, Additional history exists Diabetes: Hemoglobin A1C 02/26/2025 025, 10/08/2024, 07/08/2024, Additional history exists Depression Screening 04/10/2025 04/10/2024, 04/10/19 25 Alcohol/Substance Use Screening 07/08/2025 07/08/2024 Disability Screening 07/08/2025 07/08/2024 SDOH Screening 07/08/2025 07/08/2024 Lipid Panel 11/26/2025 11/26/2024, 02/26, 01/09/2020 Tobacco Screening 11/28/2025 11/28/2024 Dental X-Ray: Full Mouth 01/25/2026 023, 01/05/2021, [...] TOTAL WITH REFLEX TO PSA, FREE Routine 11/26/2024 9:04 AM EDT FERRITIN Routine 11/26/2024 9:04 AM EDT Memory loss IRON AND TOTAL IRON BINDING CAPACITY Routine 11/26/2024 9:04 AM EDT Memory loss C-REACTIVE PROTEIN Routine 11/26/2024 9: 04 AM EDT Vitiligo SED RATE BY MODIFIED WESTERGREN Routine 11/26/2024 9:04 AM EDT Vitiligo THYROID PEROXIDASE ANTIBODIES Routine 11/26/2024 9:04 AM EDT Vitiligo TK SCREEN, IFA, W/REFL TITER AND PATTERN Routine 11/26/2024 9:04 AM EDT Vitiligo CBC WITH AUTO DIFFERENTIAL Routine 11/26/2024 9:04 AM EDT Memory loss SYPHILIS SCREEN Routine 11/26/2024 9:04 AM EDT Memory loss TSH W/REFLEX TO FT4 Routine 11/26/2024 9 :04 AM EDT Memory loss VITAMIN B12 Routine 11/26/2024 9:04 AM EDT Memory loss LIPID PANEL, STANDARD Routine 11/26/2024 9:04 AM EDT Hyperglycemia due to diabetes mellitus (HCC) Dyslipidemia HEMOGLOBIN A1C Routine 11/26/2024 9:04 AM EDT IFG (impaired fasting glucose) POCT GLYCATED HEMOGLOBIN, TOTAL Routine 10/08/2024 4:13 [...] RADIOGRAPHIC IMAGES Routine 01/24/2023 3:30 PM EST HM COLONOSCOPY Routine 05/24/2020 ZZZ HISTORICAL HEPATITIS C AB W/REFL TO HCV RNA, QN, PCR Routine 01/09/2020 10:22 AM EST HIV 1/2 ANTIGEN/ANTIBODY, FOURTH GENERATION W/RFL Routine 01/09/2020 10:22 AM EST from Last 3 Months or Most Recently Relevant to Health Maintenance Results * (ABNORMAL) Syphilis Screen (11/26/2024 9:04 AM EDT) Syphilis Screen Reactive( A) Nonreactive [facility] Comment:Reactive specimens a re sent to the [facility] Labfor confirmatory tests. Blood Venous blood specimen / Unknown 11/26/2024 9:04 AM EDT 11/26/2024 9:04 AM EDT Lizy Garcia [facility] LAB BLOOD ORDERABLES Final Resul t Performing Organization Address [facility] Co de Phone Number [facility] [address] [place] [phone] * TSH W/Reflex to FT4 (11/26/2024 9:04 AM EDT) TSH reflex Free T4 1.49 0.32 - 4.0 uIU/mL [facility] Blood Venous blood specimen / Unknown 11/26/2024 9:04 AM EDT 11/26/2024 9:04 AM EDT Lizy Garcia [facility] LAB BLOOD ORDERABLES Final Resul t Performing Organization Address [facility] Co de Phone Number [facility] [address] [place] [phone] * (ABNORMAL) PSA, Total With Reflex to PSA, Free (11/26/2024 9:04 AM EDT) PSA,Total (Free>4and<10) 14.95(H ) 0.00 - 4.00 ng/mL [facility] Comment:A Free PSA was not [...] methodology: Beltran Alinity i ChemiluminescentMicroparticle Immunoassay (CMIA) 11/26/2024 9:04 AM EDT 11/26/2024 9:04 AM EDT us Generic External Data Provider LAB BLOOD ORDERAB LES Final Result [facility] [address] [place], [place] [phone] * (ABNORMAL) CBC auto differential (11/26/2024 9:04 AM EDT) White Blood Count 7.1 4.8 - 10.8 X10*3/uL [facility] Red Blood Count 5.12 4.60 - 5.80 X10*6/uL [facility] Hemoglobin 15.8 14.0 - 18.0 g/dl [facility] Hematocrit 46.1 42.0 - 52.0 % [facility] Mean Corpuscular Volume 90.0 80.0 - 98.0 fL [facility] Mean Corpuscular Hemoglobin 30.9 27.0 - 33.0 pg [facility] Mean Corpuscular HGB Conc 34.3 31.0 - 36.0 g/dl [facility] Red Cell Distribution Width 12.2 11.0 - 16.0 % [facility] Platelet Count 249 160 - 400 X10*3/uL [facility] Mean Platelet Volume 11.1 9.4 - 12.4 fL [facility] Neutrophils Percent Auto 56.2 45 - 73 % [facility] Imm Gran Pct Auto 1.1(H) 0.0 - 0.4 % [facility] Lymphocytes Percent Auto 33.7 20 - 40 % [facility] Monocytes Percent Auto 7.3 2 - 11 % [facility] Eosinophils Percent Auto 1.3 0 - 4 % [facility] Basophils Percent Auto 0.4 0 - 2 % [facility] NRBC Pct Auto 0.0 0.0 - 0.2 /100WBC [facility] Neutrophils Absolute Auto 4.0 2.0 - 8.3 x10*3/uL [facility] Imm Gran Abs Auto 0.08(H) 0.00 - 0.03 X10*3/uL [facility] Lymphocytes Absolute Auto 2.4 1.2 - 4.9 X10*3/uL [facility] Monocytes Absolute Auto 0.5 0.1 - 1.2 X10*3/uL [facility] Eosinophils Absolute Auto 0.1 0.0 - 0.4 X10*3/uL [facility] Basophils Absolute Auto 0.0 0.0 - 0.2 X10*3/uL [facility] NRBC Abs Auto 0.000 0.0 - 0.012 X10*3/uL [facility] Blood Venous blood specimen / Unknown 11/26/2024 9:04 AM EDT 11/26/2024 9:04 AM EDT Lizy Garcia ANP LAB BLOOD ORDERABLES Final Resul t Performing Organization Address City/[facility]/ZIP Co de Phone Number [facility] [address] [place] [phone] * Thyroid Peroxidase Antibodies (11/26/2024 9:04 AM EDT) Thyroid Peroxidase Antibodies 6 <9 IU/mL [facility] Comment:THIS TEST WAS PERFOR MED AT:[employer] [place] [phone] ELLISON MD Blood Venous blood specimen / Unknown 11/26/2024 9:04 AM EDT 11/26/2024 9:04 AM EDT Lizy Garcia ANP LAB BLOOD ORDERABLES Final Resul t Performing Organization Address City/[facility]/ZIP Co de Phone Number [facility] [address] [place] [phone] [phone] * (ABNORMAL) Iron And Total Iron Binding Capacity (11/26/2024 9:04 AM EDT) Iron 155 45 - 160 mcg/dL [facility] Total Iron Binding Capacity 259 228 - 428 mcg/dL [facility] Percent Iron Saturation 60(H) 15 - 50 % [facility] Unsaturated Iron Binding 104 ug/dL [facility] Blood Venous blood specimen / Unknown 11/26/2024 9:04 AM EDT 11/26/2024 9:04 AM EDT Lizy Garcia [facility] LAB BLOOD ORDERABLES Final Resul t Performing Organization Address [facility] Co de Phone Number [facility] [address] [place] [phone] * Sed Rate by Modified Westergren (11/26/2024 9:04 AM EDT) Erythrocyte Sedimentation Rate 2 0 - 15 MM/HR [facility] Comment:Patients with polycy themia and many hemoglobin abnormalitiesmay have depressed sed rates whereas patients with anemiamay have elevated sed rates. Blood Venous blood specimen / Unknown 11/26/2024 9:04 AM EDT 11/26/2024 9:04 AM EDT Lizy Garcia [facility] LAB BLOOD ORDERABLES Final Resul t Performing Organization Address [facility] Co de Phone Number [facility] [address] [place] [phone] * C-reactive Protein (11/26/2024 9:04 AM EDT) C Reactive Protein 0.12 < or = 0.50 mg/dL [facility] Blood Venous blood specimen / Unknown 11/26/2024 9:04 AM EDT 11/26/2024 9:04 AM EDT Lizy Garcia [facility] LAB BLOOD ORDERABLES Final Resul t Performing Organization Address [facility] Co de Phone Number [facility] [address] [place] [phone] * TK Screen,IFA, with Reflex to Titer and Pattern (11/26/2024 9:04 AM EDT) Anti Nuclear Antibody Screen NEGATIVE NEGATIVE [facility] Comment:TK IFA is a first l ine screen for detecting thepresence of up to approximately 150 autoantibodies invarious autoimmune diseases. A negative TK IFA resultsuggests an TK-associated autoimmune disease is notpresent at this time, but is not definitive. If thereis high clinical suspicion for Sjogren's syndrome,testing for anti-SS-A/Ro antibody should be considered.Anti-Marlin-1 antibody should be considered for clinicallysuspected inflammatory myopathies.AC-0: NegativeInternational Consensus on TK Patterns(https://doi.org/10.1515/yrni-9557-4083)For additional information, please refer tohttp://education.[employer]ovo [employer]/faq/FMI281(This link is being provided for informational/educational purposes only.)THIS TEST WAS PERFORMED AT:[employer] [place] [phone] ELLISON MD TK Titer [facility] TK Pattern [facility] TK TITER 2 (REF LAB) [facility] TK Pattern 2 [facility] TK TITER 3 [facility] TK PATTERN 3 [facility] Blood Venous blood specimen / Unknown 11/26/2024 9:04 AM EDT 11/26/2024 9:04 AM EDT [facility] LAB BLOOD ORDERABLES Final Resul t [facility] [address] [place] [phone] * (ABNORMAL) Hemoglobin A1c (11/26/2024 9:04 AM EDT) Hemoglobin A1c 7.8(H) <6.0 % [facility] Comment:Hemoglobin A1C Refer ence Range Adults: 4.8 - 6.0 % Non diabetic: < 6.0 % Goal: < 7.0 %Additional Action Suggested: > 8.0 %Note: Hemoglobin A1c results are invalid for patients with abnormal amounts of HbF. Blood transfusions may impact the HbA1c concentration in the patient sample. Estimated Average Glucose 177 mg/dL [facility] Comment:eAG = Estimated ave rage glucose which is %A1C expressed asaverage glucose, using the formula of the V2R-FxiwgeaEzybwej Glucose study (ADAG), Diabetes Care, Vol.31,#8,Sep. 2007 Blood Venous blood specimen / Unknown 11/26/2024 9:04 AM EDT 11/26/2024 9:04 AM EDT Lizy Garcia ANP LAB BLOOD ORDERABLES Final Resul t Performing Organization Address City/[facility]/ZIP Co de Phone Number [facility] [address] [place] [phone] * (ABNORMAL) Ferritin (11/26/2024 9:04 AM EDT) Ferritin 976(H) 20 - 250 ng/mL [facility] Blood Venous blood specimen / Unknown 11/26/2024 9:04 AM EDT 11/26/2024 9:04 AM EDT Lizy Garcia ANP LAB BLOOD ORDERABLES Final Resul t Performing Organization Address [facility] [[email or web address]] de Phone Number [facility] [address] [place] [phone] * Vitamin B12 (11/26/2024 9:04 AM EDT) Vitamin B12 374 200 - 900 pg/mL [facility] Comment:NORMAL 200-900 PG/ML INDETERMINATE 160-199 PG/ML DEFICIENT < 160 PG/ML Blood Venous blood specimen / Unknown 11/26/2024 9:04 AM EDT 11/26/2024 9:04 AM EDT Lizy Garcia ANP LAB BLOOD ORDERABLES Final Resul t Performing Organization Address [facility] Co de Phone Number [facility] [address] [place] [phone] [phone] * (ABNORMAL) Lipid Panel, Standard (11/26/2024 9:04 AM EDT) Triglycerides 232(H) <150 mg/dL [facility] Comment:Desirable Triglyceri de: less than 150 mg/dLBorderline High Triglyceride 150-199 mg/dLHigh Triglyceride: 200-499 mg/dLVery High Triglyceride: greater than or equal to 5OO mg/dL Cholesterol 276(H) <200 mg/dL [facility] Comment:Desirable Cholestero l: less than 200 mg/dLBorderline High Cholesterol: 200-239 mg/dLHigh Cholesterol: greater than 239 mg/dL LDL Cholesterol Calculated 186(H) <100 mg/dL [facility] Comment:Desirable LDL: less than 100 mg/dLNear Optimal/Above Optimal LDL: 110- 129 mg/dLBorderline High LDL: 130-159 mg/dLHigh LDL: 160-189 mg/dLVery High LDL: greater than or equal to 190 mg/dL HDL Cholesterol 44 >40 mg/dL [facility] Comment:Desirable HDL: great er than 40 mg/dL Note: This HDL assay may give artificially low results in patients with liver disease. Blood Venous blood specimen / Unknown 11/26/2024 9:04 AM EDT 11/26/2024 9:04 AM EDT us Lizy Garcia ANP LAB BLOOD ORDERABLES Final Resul t [facility] [address] [place] [phone] * (ABNORMAL) POCT HGB A1C (10/08/2024 4:13 PM EDT) Hemoglobin A1C 6.9(A) 4.0 - 5.7 % QC Media Lot # [id number] Lot# Expiration Date ,[id number] Blood 10/08/2024 4:13 PM EDT us Lizy Garcia ANP POINT OF CARE TEST ENTER/EDIT OR DERABLES Final Result * POCT Glucose (10/08/2024 4:11 PM EDT) [facility] Glucose Blood, POC 155 60 - 200 mg/dL QC Media Lot # [id number] Lot# Expiration Date [id number] Blood Capillary blood specimen / Unknown 10/08/2024 4:11 PM EDT [facility] POINT OF CARE TEST ENTER/EDIT OR DERABLES [...] 1 year with an optic nerve OCT. Lulú Kat OD OPHTH PHOTOGRAPHY Final Resul t * Hm Colonoscopy (05/24/2020) [facility] Colonoscopy Normal Normal Historical Provider HEALTH MAINTENANCE Final Result * HEPATITIS C AB W/REFL TO HCV RNA, QN, PCR (01/09/2020 10:22 AM EST) [facility] HEPATITIS C ANTIBODY NON-REACT GIOVANNY NON-REACT GIOVANNY [facility] INDEX 0.02 <1.00 [facility] Comment: HCV antibody was non-reactive. There is no laboratory evidence of HCV infection. In most cases, no further action is required. However, if recent HCV exposure is suspected, a test for HCV RNA (test code 52905) is suggested. For additional information please refer to http://education.Cyphort/faq/MDZ18q7 (This link is being provided for informational/ educational purposes only.) HEPATITIS C ANTIBODY NON-REACT GIOVANNY NON-REACT GIOVANNY [facility] INDEX 0.02 <1.00 [facility] Comment: HCV antibody was non-reactive. There is no laboratory evidence of HCV infection. In most cases, no further action is required. However, if recent HCV exposure is suspected, a test for HCV RNA (test code 85874) is suggested. For additional information please refer to http://[employer]/faq/PMY88v9 (This link is being provided for informational/ educational purposes only.) HEPATITIS C ANTIBODY NON-REACT GIOVANNY NON-REACT GIOVANNY [facility] INDEX 0.02 <1.00 [facility] Comment: HCV antibody was non-reactive. There is no laboratory evidence of HCV infection. In most cases, no further action is required. However, if recent HCV exposure is suspected, a test for HCV RNA (test code 02204) is suggested. For additional information please refer to http://[employer]/faq/GAU62a4 (This link is being provided for informational/ educational purposes only.) 01/09/2020 10:2 2 AM EST us Lizy Garcia ANP HISTORICAL/NON ORDERABLE LABS Fi nal Result [facility] [address] * HIV 1/2 ANTIGEN/ANTIBODY,FOURTH GENERATION W/RFL (01/09/2020 10:22 AM EST) HIV-1/2 ANTIGEN AND ANTIBODIES, 4TH GENERATION W/ REFLEX NON-REACT GIOVANNY NON-REACT GIOVANNY [facility] Comment: HIV-1 antigen and [...] purpose. For additional information please refer to http://MongoSluice.Cyphort/faq/ZGQ549 (This link is being provided for informational/ [...] purpose. For additional information please refer to http://MongoSluice.Cyphort/faq/IQD945 (This link is being provided for informational/ [...] purpose. For additional information please refer to http://MongoSluice.Cyphort/faq/SBH562 (This link is being provided for informational/ educational purposes only.) The performance of this assay has not been clinically validated in patients less than 2 years old. 01/09/2020 10:2 2 AM EST [facility] LAB BLOOD ORDERABLES Final Resul t [facility] [address] from Last 3 Months or Most Recently Relevant to Health Maintenance Insurance [facility] C3 DENTAL-[facility] MEDICAID STAND ADULT Care Teams Director Water And Waste Services Relationship Specialty Start Date End Date Lizy Garcia ANP [address] [place] [address] PCP - General Family Medicine 12/24/19 Shira Mack RN [address] [place] [phone] Dielectric Press Operator Family Medicine 03/27/24
--- OUTSIDE RECORDS SUMMARY | 2024-12-01 18:09 | XMS_ITS | Clinical Summary ---
Author Organization [facility] Address [address] [place] [address] Care Team Providers Care Resume Writer Name Role Phone Pcp, No Primary Care [...] age to complete this topic Care Teams Resume Writer Relationship Specialty Start Date End Date PcpCheri PCP - General General Medicine 05/24/23
--- OUTSIDE RECORDS SUMMARY | 2024-12-01 18:09 | XMS_ITS | Encounter Summary ---
Author Organization [facility] Address [address] [place] [address] 7[address] [place] [address] Care Team Providers Care Resident Programs Assistant Name Role Phone Lizy Garcia Primary Care Provider [phone] Shira Mack RN Unavailable [phone] Encounter Details Date Type Department Care Team (Latest Contact Info) Description 03/24/2019 Abstract [facility] CONVERSIONS Dental, Provider, DDS Social History Tobacco [...] Description 12/10/2024 3:00 PM EDT Office Visit [facility] [address] [place] [address] Lizy Garcia ANP [address] [place] [address] documented as of this encounter Visit Diagnoses Not on filedocumented in this encounter Care Teams Resident Programs Assistant Relationship Specialty Start Date End Date Lizy Garcia ANP [address] [place], [place] PCP - General Family Medicine 12/24/19 Shira Mack, RN [address] [place] [phone] Truck Trailer Mechanic Family Medicine 03/27/24 documented as of this encounter
--- OUTSIDE RECORDS SUMMARY | 2024-12-01 18:09 | XMS_ITS | Encounter Summary ---
Author Organization [facility] Address [address] [place] [address] Care Team Providers Care Study Coordinator Name Role Phone Pcp, No Primary Care Provider Unavailabl e Encounter Details Date Type Department Care Team (Late st Contact Info) Description 05/25/2023 Scanned Document [facility] Urologic Surgery [place] [address] [place] [address] Mariam Rankin [place] 201 No [facility] [address] [place] [address] Social History Tobacco Use Types Packs/Day Years [...] on filedocumented in this encounter Care Teams Study Coordinator Relationship Specialty Start Date End Date Pcp, No PCP - General General Medicine 05/24/23 documented as of this encounter
--- OUTSIDE RECORDS SUMMARY | 2024-12-01 18:09 | XMS_ITS | Encounter Summary ---
Author Organization [employer] Address [address] [place] [address] Care Team Providers Care Clinical Partner Name Role Phone Lizy Garcia Primary Care Provider [phone] Shira Mack RN Unavailable [phone] Reason for Visit * Reason Comments Med Refill Encounter Details Date Type Department Care Team ([facility] st Contact Info) Description 01/21/2023 Refill [facility] [address] [place], [place] [phone] Lizy Garcia ANP [address] [place], [place] [phone] GERD without esophagitis Social History Tobacco Use [...] Description 12/10/2024 3:00 PM EDT Office Visit [facility] [address] [place] [phone] Lizy Garcia ANP [address] [place] [phone] documented as of this encounter Visit Diagnoses Diagnosis GERD without esophagitis Esophageal reflux documented in this encounter Care Teams Clinical Partner Relationship Specialty Start Date End Date Lizy Garcia ANP [address] [place] [phone] PCP - General Family Medicine 12/24/19 Shira Mack, RN [address] [place] [phone] Web Application Developer Family Medicine 03/27/24 documented as of this encounter
--- OUTSIDE RECORDS SUMMARY | 2024-12-01 18:09 | XMS_ITS | Encounter Summary ---
Author Organization [facility] Address [address] [facility] [address] 7[address] [place] [address] Care Team Providers Care Human Resources Hr Generalist Name Role Phone Lizy Garcia Primary Care Provider [phone] Shira Mack RN Unavailable [phone] Reason for Visit * Reason Comments Med Refill Encounter Details Date Type Department Care Team ([facility] st Contact Info) Description 05/13/[address] [facility] [address] [place], [place] [phone] Taras Shrestha MD [address] [place], [place] [phone] Dermatophytosis Social History Tobacco Use Types Packs/Day [...] PM EDT Office Visit [facility] [address] [place] [address] Lizy Garcia ANP [address] [place] [address] documented as of this encounter Visit Diagnoses Diagnosis Dermatophytosis Dermatophytosis of unspecified site documented in this encounter Additional Health Concerns Assessment Noted Time PHQ-9 Depression Total Score: 0 04/10/19 3:43 PM EST documented as of this encounter Care Teams Human Resources Hr Generalist Relationship Specialty Start Date End Date Lizy Garcia ANP [address] [place] [address] PCP - General Family Medicine 12/24/19 Shira Mack, BENY [address] [place] [address] Senior Marketing Coordinator Family Medicine 03/27/24 documented as of this encounter
--- OUTSIDE RECORDS SUMMARY | 2024-12-01 18:09 | XMS_ITS | Encounter Summary ---
Author Organization [facility] Address [address] [place] [address] 7t [place] [address] Care Team Providers Care Remote Sensing Engineer Name Role Phone Lizy Garcia Primary Care Provider [phone] Shira Mack RN Unavailable [phone] Encounter Details Date Type Department Care Team (Latest Contact Info) Description 01/05/2021 Abstract [facility] CONVERSIONS Dental, Provider, DDS Social [...] Description 12/10/2024 3:00 PM EDT Office Visit [facility] [address] [place] [address] Lizy Garcia ANP [address] [place] [address] documented as of this encounter Visit Diagnoses Not on filedocumented in this encounter Care Teams Remote Sensing Engineer Relationship Specialty Start Date End Date Lizy Garcia ANP [address] [place] [address] PCP - General Family Medicine 12/24/19 Shira Mack, RN [address] [place] [address] Gas Pumping Station Helper Family Medicine 03/27/24 documented as of this encounter
--- OUTSIDE RECORDS SUMMARY | 2024-12-01 18:09 | XMS_ITS | Encounter Summary ---
Author Organization [employer] Address [address] [facility] [address] 7[address] [place] [address] Care Team Providers Care Milk Collector Name Role Phone Lizy Garcia Primary Care Provider [phone] Shira Mack RN Unavailable Encounter Details Date Type Department Care Team (Late st Contact Info) Description 11/26/2024 Orders Only GENERIC EXTERNAL DATA DEPARTMENT [...] Description 12/10/2024 3:00 PM EDT Office Visit [facility] 230 [place], [place] [phone] Lizy Garcia ANP [address] [place], [place] [phone] documented as of this encounter Procedures Procedure Name Priority Date/Time Associated Diagnosis Comments PSA, TOTAL WITH REFLEX TO PSA, FREE Routine 11/26/2024 9:04 AM EDT documented in this encounter Results * (ABNORMAL) PSA, Total With Reflex to PSA, Free (11/26/2024 9:04 AM EDT) PSA,Total (Free>4and<10) 14.95(H ) 0.00 - 4.00 ng/mL [facility] [...] are between 4.0 and 10.0 ng/mL.PSA methodology: [employer] i ChemiluminescentMicroparticle Immunoassay (CMIA) 11/26/2024 9:04 AM EDT 11/26/2024 9:04 AM EDT us Generic External Data Provider LAB BLOOD ORDERAB LES Final Result [facility] [address] [place] [address] [phone] documented in this encounter Visit Diagnoses Not on filedocumented in this encounter Additional Health Concerns Assessment Noted Time PHQ-9 Depression Total Score: 0 04/10/19 3:43 PM EST documented as of this encounter Care Teams Milk Collector Relationship Specialty Start Date End Date Lizy Garcia ANP [address] [place] [address] PCP - General Family Medicine 12/24/19 Shira Mack, BENY [address] [place] [address] Technical Services Manager Family Medicine 03/27/24 documented as of this encounter
--- OUTSIDE RECORDS SUMMARY | 2024-12-01 18:09 | XMS_ITS | Encounter Summary ---
Author Organization [employer] Address [address] [facility] 7t [place] [address] Care Team Providers Care Rn Care Transition Name Role Phone Lizy aGrcia Primary Care Provider [phone] Shira Mack RN Unavailable [phone] Reason for Visit * Reason Onset Date Comments Results 11/28/2024 Encounter Details Date Type Department Care Team ([facility] st Contact Info) Description 11/28/2024 Results Follow-Up [facility] [address] [place], [place] [phone] Lizy Garcia ANP [address] [place], [place] [phone] POCT Glucose, POCT HGB A1C, Vitamin B12, Additional followed-up results: 9 Social History Tobacco Use Types Packs/Day Years [...] encounter Miscellaneous Notes * Telephone Encounter - Aminata Cannon RN - 12/01/2024 9:16 AM EDT TC placed to the pt to inform of PCP message below regarding pt labs. The pt was informed that the syphilis confirmatory panel is still pending but in the meantime have three newly placed labs done before next appointment with PCP on 12/10/2024. The pt was agreeable to this information and stated understanding. --- Message from Lizy Garcia sent at 11/28/2024 12:47 PM EDT ----- Waiting on syphilis confirmatory panel, but in the meantime please ask James to get labs to check his liver, one of his iron levels is very high, which can be from inflammation, though his other inflammatory markers are normal. * Telephone Encounter - Aminata Cannon RN - 11/28/2024 1:13 PM EDT TC placed to the pt and LVM to call back the office in regard to message below ----- Message from Lizy Garcia sent at 11/28/2024 12:47 PM EDT ----- Waiting on syphilis confirmatory panel, but in the meantime please ask James to get labs to check his liver, one of his iron levels is very high, which can be from inflammation, though his other inflammatory markers are normal. ----- Message ----- From: Joseph Espino MA Sent: 10/08/2024 4:12 PM EDT To: MARY Pruett * Result Encounter Note - MARY Pruett - 11/28/2024 12:47 PM EDT Waiting on syphilis confirmatory panel, but in the meantime please ask James to get labs to check his liver, one of his iron levels is very high, which can be from inflammation, though his other inflammatory markers are normal. documented in this encounter Plan of Treatment Upcoming Encounters Date Type Department Care Team (Late st Contact Info) Description 12/10/2024 3:00 PM EDT Office Visit [facility] [address] [place] [address] Lizy Garcia ANP [address] [place] [address] Scheduled Orders Name Type Priority Associated Diagnoses Orde r Schedule Transferrin Lab Routine Elevated ferritin Expected: 11/28/2024 (Approximate), Expires: 11/28/2025 Hepatic Function Panel Lab Routine Elevated ferritin Expected: 11/28/2024 (Approximate), Expires: 11/28/2025 Reticulocyte Count Lab Routine Elevated ferritin Expected: 11/28/2024 (Approximate), Expires: 11/28/2025 documented as of this encounter Visit Diagnoses Diagnosis Elevated ferritin- Primary Other abnormal blood chemistry documented in this encounter Additional Health Concerns Assessment Noted Time PHQ-9 Depression Total Score: 0 04/10/19 25 3:43 PM EST documented as of this encounter Care Teams Rn Care Transition Relationship Specialty Start Date End Date Lizy Garcia ANP [address] [place] [address] PCP - General Family Medicine 12/24/19 Shira Mack RN [address] [facility] [address] Aircraft Refueller Family Medicine 03/27/24 documented as of this encounter
== END 2024-12-01 16:49 | disposition home or self-care (01) ==
LOC: HO.HUSH 15:51
PROVIDERS: PCP Nurse Practitioner Primary Care; Referring Provider Nurse Practitioner Primary Care; Visit Provider Urology
DX: K64.9 Unspecified hemorrhoids (principal); C61 Malignant neoplasm of prostate
CPT/HCPCS: 99214

== ENCOUNTER 2024-12-20 08:03 | Outpatient (REF) | payer MEDICAID, SELFPAY ==
--- NOTE | ~2024-12-20 | CT_ITS ---
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 No extra-axial fluid collection. Mild periventricular and subcortical white matter hypoattenuation, nonspecific, most frequently ascribed to chronic small vessel ischemic disease. 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 Visualized orbits are within normal range. Visualized paranasal sinuses, and mastoid air cells are unremarkable. The cranium appears intact. Superficial soft tissue is unremarkable. Impression: 1. No acute intracranial finding. 2. Chronic findings as discussed above. This document has been electronically signed by: Sharon Toure MD on 12/22/2024 15:53:56
--- OUTSIDE RECORDS SUMMARY | 2024-12-20 08:07 | XMS_ITS | Encounter Summary ---
Author Organization [facility] Address [address] [place] [address] Care Team Providers Care Chlorine Plant Operator Name Role Phone [facility] Primary Care Provider [phone] Encounter Details Date Type Department Care Team (Late st Contact Info) Description 12/12/2024 Telephone [facility] [address] [place] [address] Automobile Repossessor: Bing Hollingsworth, Franco Pleitez MD [address] [place] [address] Social History Tobacco Use Types Packs/Day Years Used Date Smoking Tobacco: Never Assessed Sex and Gender Information Value Date Recorded Sex Assigned at Male 07/29/2024 3:51 PM EDT Legal Sex Male 2:51 PM EDT Gender Identity Male 07/29/2024 3:51 PM EDT Sexual Orientation Choose not to disclose 2024 4:40 PM EDT documented as of this encounter Miscellaneous Notes * Telephone Encounter - Meghan Swift - 12/12/2024 10:05 AM EDT Outbound call to pt to see if he was still interested in having surgery: yes but he will be in [place] and requesting sometime in February but will call once back in [place] to schedule. documented in this encounter Plan of Treatment Not on file documented as of this encounter Visit Diagnoses Not on filedocumented in this encounter Care Teams Chlorine Plant Operator Relationship Specialty Start Date End Date [address] [address] PCP - General 07/29/24 documented as of this encounter
--- OUTSIDE RECORDS SUMMARY | 2024-12-20 08:08 | XMS_ITS | Encounter Summary ---
Author Organization [employer] Address [address] [facility] 7t [place] [address] Care Team Providers Care Occupational Health Rn Name Role Phone Lizy Garcia Primary Care Provider [phone] Shira Mack RN Unavailable [phone] Encounter Details Date Type Department Care Team (Latest Contact Info) Description 03/24/2019 Abstract [facility] CONVERSIONS Dental, Provider, DDS Social History Tobacco [...] on filedocumented in this encounter Care Teams Occupational Health Rn Relationship Specialty Start Date End Date Lizy Garcia ANP [address] [place] [address] PCP - General Family Medicine 12/24/19 Shira Mack, RN [address] [place], [place] [phone] Sealer Dry Cell Family Medicine 03/27/24 documented as of this encounter
--- OUTSIDE RECORDS SUMMARY | 2024-12-20 08:08 | XMS_ITS | Encounter Summary ---
Author Organization [employer] Address [address] [facility] 7t [place] [address] Care Team Providers Care Director Of Analytical Development Name Role Phone Lizy Garcia Primary Care Provider [phone] Shira Mack RN Unavailable [phone] Encounter Details Date Type Department Care Team (Latest Contact Info) Description 11/26/2024 Results Follow-Up [facility] [address] [place] [address] Lizy Garcia ANP [address] [place] [address] PSA, Total With Reflex to PSA, Free, Confirmatory Syphilis Profile Social History Tobacco Use Types Packs/Day Years [...] as of this encounter Miscellaneous Notes * Result Encounter Note - MARY Pruett - 12/04/2024 4:55 PM EDT Hi - can you check with pt and see if he has ever had syphilis, even as a teen or young adult and if he remembers tx? If not, or no recollection, can you please check with Lilly or Nancy at [facility] to see if they have any record of treatment history? documented in this encounter Plan of Treatment Not on file documented as of this encounter Visit Diagnoses Not on filedocumented in this encounter Additional Health Concerns Assessment Noted Time PHQ-9 Depression Total Score: 0 04/10/19 3:43 PM EST documented as of this encounter Care Teams Director Of Analytical Development Relationship Specialty Start Date End Date Lizy Garcia ANP [address] [place] [address] PCP - General Family Medicine 12/24/19 Shira Mack, RN [address] [place] [address] Film Loader Family Medicine 03/27/24 documented as of this encounter
--- OUTSIDE RECORDS SUMMARY | 2024-12-20 08:08 | XMS_ITS | Encounter Summary ---
Author Organization [facility] [facility] Address [address] [facility] 7t [place] [address] Care Team Providers Care Business Computers Teacher Name Role Phone Lizy Garcia Primary Care Provider [phone] Shira Mack RN Unavailable [phone] Encounter Details Date Type Department Care Team (Latest Contact Info) Description 01/05/2021 Abstract [facility] CONVERSIONS Dental, Provider, DDS Social [...] on filedocumented in this encounter Care Teams Business Computers Teacher Relationship Specialty Start Date End Date Lizy Garcia ANP [address] [place] [address] PCP - General Family Medicine 12/24/19 Shira Mack, BENY [address] [place], [place] [phone] Learning Specialist Family Medicine 03/27/24 documented as of this encounter
--- OUTSIDE RECORDS SUMMARY | 2024-12-20 08:08 | XMS_ITS | Encounter Summary ---
Author Organization [employer] Address [address] [facility] [address] 7t [place] [address] Care Team Providers Care Archeologist Name Role Phone Lizy Garcia Primary Care Provider [phone] Shira Mack RN Unavailable [phone] Reason for Visit * Reason Comments Med Refill Encounter Details Date Type Department Care Team ([facility] st Contact Info) Description 01/21/2023 Refill [facility] [address] [place] [address] Lizy Garcia ANP [address] [place] [address] GERD without esophagitis Social History Tobacco Use [...] reflux documented in this encounter Care Teams Archeologist Relationship Specialty Start Date End Date Lizy Garcia ANP [address] [place] [address] PCP - General Family Medicine 12/24/19 Shira Mack RN [address] [place] [address] Elderly Sitter Family Medicine 03/27/24 documented as of this encounter
--- OUTSIDE RECORDS SUMMARY | 2024-12-20 08:09 | XMS_ITS | Encounter Summary ---
Author Organization [employer] Address [address] [facility] [address] 7[address] [place] [address] Care Team Providers Care Internal Corrosion Specialist Name Role Phone Lizy Garcia Primary Care Provider Shira Mack RN Unavailable [phone] Reason for Visit * Reason Comments Med Refill Encounter Details Date Type Department Care Team ([facility] st Contact Info) Description 05/13/2024 Refill [facility] [address] [place], [place] [phone] Taras Shrestha MD [address] [place] [address] Dermatophytosis Social History Tobacco Use Types Packs/Day [...] documented as of this encounter Care Teams Internal Corrosion Specialist Relationship Specialty Start Date End Date Lizy Garcia ANP [address] [place] [address] PCP - General Family Medicine 12/24/19 Shira Mack, RN [address] [place] [address] Piece Hand Family Medicine 03/27/24 documented as of this encounter
--- OUTSIDE RECORDS SUMMARY | 2024-12-20 08:09 | XMS_ITS | Clinical Summary ---
Author Organization [facility] Address [address] [place] [address] Care Team Providers Care Account Administrator Name Role Phone [facility] Primary Care Provider [phone] Allergies No known active allergies Medications omeprazole (PriLOSEC) 20 mg capsule SMARTSI Capsule(s) By Mouth Every Morning 10/17/2024 Active Encounters Date Type Department Care Team Description 12/12/2024 Telephone [facility] [address] [place] [address] Embossing Press Operator: Franco Monroe MD 11/13/2024 3:30 PM EDT Office Visit [facility] [place] [address] Embossing Press Operator: Franco Monroe MD Prostate cancer (HCC) (Primary Dx) from Last 3 Months Social History Tobacco [...] 02/27/2024 Depression Screening and Follow-Up 02/27/2024 [facility] Annual Screening 02/27/2024 Influenza Vaccine (#1) 2024 DTaP,Tdap,and Td Vaccines (3 - Td or Tdap) 05/16/2027 05/15/2017, 06/04/2014 RSV Vaccine (60+ years old a nd patients) (1 - 1-dose 75+ series) 2035 HIV Screening Completed 01/09/2020 Zoster Vaccines Completed 01/06/2021, 11/04/2020 Hepatitis B Vaccines Aged Out No long er eligible based on patient's age to complete this topic [facility] Care Teams Account Administrator Relationship Specialty Start Date End Date [facility] [address] [place] [address] PCP - General 07/29/24
--- OUTSIDE RECORDS SUMMARY | 2024-12-20 08:11 | XMS_ITS | Clinical Summary ---
Author Organization [employer] Address [address] [facility] [address] [place] [address] Care Team Providers Care Rubber Compounder Mixer Name Role Phone Lizy Garcia Primary Care Provider [phone] Shira Mack RN Unavailable [phone] Allergies No known active allergies Medications insulin degludec (Tresiba FlexTouch) 100 UNIT/ML injectionIndicatio ns:Hyperglycemia due to diabetes mellitus (HCC) Inject 10 Units under the skin Once daily. 3 mL 3 03/05/19 25 026 Active FREESTYLE LITE test stripIndications:H yperglycemia due to diabetes mellitus (HCC) Use to test blood sugar 3 times daily 100 each 12 03/05/19 25 026 Active Lancets miscIndications:Hy perglycemia due to diabetes mellitus (HCC) Use to test blood sugar 3 times daily 100 each 03/05/19 25 Active Alcohol Swabs 70 % padsIndications:Hy perglycemia due to diabetes mellitus (HCC) Use to clean skin before checking blood sugar 100 each 11 03/05/19 25 Active Blood Glucose Monitoring Suppl (FreeStyle Solon Lite) w/Device kitIndications:Hyp erglycemia due to diabetes mellitus (HCC) Use to test blood sugar 3 times daily 1 kit 03/05/19 25 Active tadalafil (Cialis) 5 MG tabletIndications: Erectile dysfunction, unspecified erectile dysfunction type Take 1 tablet (5 mg) by mouth Once per day. 30 tablet 1 03/05/19 25 Active senna-docusate sodium (Senokot-S) 8.6-50 MG tabletIndications: Constipation, unspecified constipation type Take 1 tab once daily for constipation 90 tablet 1 03/05/19 25 Active Continuous Glucose Sensor (FreeStyle Jey 2 Sensor) miscIndications:Ne w onset type 2 diabetes mellitus (HCC) Apply 1 sensor every 14 days 2 each 03/05/19 25 Active glucose blood (FreeStyle Precision Junior Test) test stripIndications:N ew onset type 2 diabetes mellitus (HCC) Use to test blood sugar 3 times daily 100 each 03/05/19 25 026 Active Continuous Glucose Admissions Clinician (FreeStyle Jey 2 Olympia) deviceIndications: New onset type 2 diabetes mellitus (HCC) SCAN SENSOR EVERY 8 HOURS 2 each 04/01/19 25 Active polycarbophil (FiberCon) 625 MG tabletIndications: Constipation, unspecified constipation type Take 1 tablet (625 mg) by mouth Once per day. For constipation 90 tablet 1 04/10/19 25 026 Active pen needle 33G x 4 mm miscIndications:Hy perglycemia due to diabetes mellitus (HCC) Use with tresiba once daily 100 each 12 04/18/19 25 026 Active metFORMIN XR (Glucophage-XR) 500 MG 24 hr tabletIndications: New onset type 2 diabetes mellitus (HCC) TAKE 1 TABLET TWICE DAILY WITH FOOD. 180 tablet 1 08/29/19 25 Active docusate sodium (Colace) 100 MG capsule take 1 capsule by mouth everyday at bedtime 06/14/19 25 Active BD Pen Needle [place] 2nd Gen 32G X 4 MM misc USE WITH TRESIBA ONCE DAILY 04/18/19 25 Active omeprazole (PriLOSEC) [address] capsuleIndications :GERD without esophagitis TAKE 1 CAPSULE (20 MG) BY MOUTH BEFORE BREAKFAST DO NOT CRUSH OR CHEW 90 capsule 1 10/18/19 25 Active rosuvastatin (Crestor) 10 MG tabletIndications: Dyslipidemia,Type 2 diabetes mellitus with hyperlipidemia (HCC) Take 1 tablet (10 mg) by mouth Once per day. 90 tablet 3 12/11/19 25 026 Active atorvastatin (Lipitor) 20 MG tabletIndications: Dyslipidemia Take 1 tablet at bedtime once daily 90 tablet 3 03/05/19 25 025 Discontin ued(Side effects) Active Problems Problem Noted Date Diagnosed Date Hyperglycemia due to diabetes mellitus Type 2 diabetes mellitus with hyperlipidemia Crowded [...] Encounters Date Type Department Care Team Description 12/10/2024 3:00 PM EDT Office Visit [address] [address] Lizy Garcia ANP Dyslipidemia (Primary Dx); Encounter for vaccination; Encounter for immunization; Type 2 diabetes mellitus with hyperlipidemia (HCC); Routine screening for STI (sexually transmitted infection) 12/10/2024 Travel 12/09/[address] [address] Lizy Garcia ANP chart prep 12/04/2024 Results Follow-Up [address] [address] Lizy Garcia ANP Lipid Panel, Standard 11/28/2024 Results Follow-Up [address] [address] Lizy Garcia ANP POCT Glucose, POCT HGB A1C, Vitamin B12, Additional followed-up results: 9 11/26/2024 Results Follow-Up [address] [address] Lizy Garcia ANP PSA, Total With Reflex to PSA, Free, Confirmatory Syphilis Profile 11/26/2024 Orders Only GENERIC EXTERNAL DATA DEPARTMENT Provider, Generic External Data 11/24/2024 Telephone [facility] MEDICINE [address] [place] [phone] Shira Mack, marketing operations associate Orders 10/22/2024 3:30 PM EDT Clinical Support [facility] [address] [place] [address] Shira Mack RN Memory loss 10/22/2024 Travel 10/17/2024 Refill [facility] [address] [place] [address] Lizy Garcia ANP GERD without esophagitis 10/08/2024 3:45 PM EDT Office Visit [address] [address] Lizy Garcia ANP Memory loss (Primary Dx); Type 2 diabetes mellitus with hyperlipidemia (CMS/HCC) ([facility]/HCC); Vitiligo; Hemorrhoids, unspecified hemorrhoid type 10/08/2024 Travel 10/07/2024 Telephone [facility] [address] [place] [address] Lizy Garcia ANP CHART PREP 10/02/2024 9:15 AM EDT Office Visit [facility] OPTOMETRY [address] [place] [address] [place], [place], [place] Presbyopia (Primary Dx) from Last 3 Months Immunizations Immunization Administration Dates Next Due Influenza, seasonal, injecta ble, preservative free 12/10/2024 Pfizer Covid-19 Vaccine 12+ 12/10/2024, 2,03/30/2021 Tdap 05/15/2017,06/04/2014 Zoster, Recombinant 01/06/2021,11/04/2020 Family History [...] Sign Reading Time Taken Comments Blood Pressure 110/80 12/10/2024 3:10 PM EDT Pulse 87 12/10/2024 3:10 PM EDT Temperature 36.4 C (97.5 F) 12/10/2024 3:10 PM EDT Respiratory Rate 13 12/10/2024 3:10 PM EDT Oxygen Saturation 99% 12/10/2024 3:10 PM EDT Inhaled Oxygen Concentration - - Weight 78.9 kg (174 lb) 12/10/2024 3:10 PM EDT Height 167.6 cm (5' 6 ) 12/10/2024 3:10 PM EDT Body Mass Index 28.08 12/10/2024 3:10 PM EDT Plan of Treatment Health Maintenance Due [...] Panel 11/26/2025 11/26/2024, 02/26, 01/09/2020 Tobacco Screening 12/10/2025 12/10/2024 Dental X-Ray: Full Mouth 01/25/2026 023, 01/05/2021, 09/04/2014 Eye Exam 09/04/2026 09/04/2024, 08/26, 09/04/2024, Additional history exists DTaP/Tdap/Td Vaccines (3 - Td or Tdap) 05/16/2027 05/15/2017, 06/04/2014 Colonoscopy 07/23/2029 05/24/2020 Colorectal Cancer Screening 07/23/2029 RSV Patients and Patients Aged 60 years or older (1 - 1-dose 75+ series) 2035 HIV Screening Completed 01/09/2020 Hepatitis C Screening Completed 01/09/2020 Zoster Vaccines Completed 01/06/2021, 11/04/2020 COVID-19 Vaccine Completed 12/10/2024, , 03/30/2021 Influenza Vaccine Completed 12/10/2024 HIB Vaccines Aged Out No longer eligi [...] Procedure Name Priority Date/Time Associated Diagnosis Comments CONFIRMATORY SYPHILIS PROFILE Routine 11/26/2024 9:04 AM EDT PSA, TOTAL WITH REFLEX TO PSA, FREE [...] 2 diabetes mellitus with hyperlipidemia (CMS/HCC) (CMS/HCC) Full PROPHYLAXIS - ADULT Routine 02/26/2024 [...] Relevant to Health Maintenance Results * (ABNORMAL) Confirmatory Syphilis Profile (11/26/2024 9:04 AM EDT) Rapid Plasma Reagin, Quant Non-React giovanny Nonreactive [facility] Treponema pallidum Antibody, Particle Agglutination Reactive( A) Nonreactive [facility] 11/26/2024 9:04 AM EDT 11/26/2024 10:31 AM EDT Lizy Garcia [facility] LAB BLOOD ORDERABLES Final Resul t Performing Organization Address [facility] Co de Phone Number [facility] [address] [place] [phone] * (ABNORMAL) Syphilis Screen (11/26/2024 9:04 AM EDT) Pathologist [facility] Syphilis Screen Reactive( A) Nonreactive [facility] Comment:Reactive specimens a re sent to the [facility] Labfor confirmatory tests. Blood Venous blood specimen / Unknown 11/26/2024 9:04 AM EDT 11/26/2024 9:04 AM EDT Lizy Garcia [facility] LAB BLOOD ORDERABLES Final Resul t Performing Organization Address [facility] Co de Phone Number [facility] [address] [place] [phone] * TSH W/Reflex to FT4 (11/26/2024 9:04 AM EDT) Pathologist [facility] TSH reflex Free T4 1.49 0.32 - 4.0 uIU/mL [facility] Blood Venous blood specimen / Unknown 11/26/2024 9:04 AM EDT 11/26/2024 9:04 AM EDT Lizy Garcia [facility] LAB BLOOD ORDERABLES Final Resul t Performing Organization Address [facility] Co de Phone Number [facility] [address] [place] [phone] * (ABNORMAL) PSA, Total With Reflex to PSA, Free (11/26/2024 9:04 AM EDT) PSA,Total (Free>4and<10) 14.95(H ) 0.00 - 4.00 ng/mL [facility] Comment:A Free PSA was [...] Provider LAB BLOOD ORDERAB LES Final Result [facility] [address] [place] [address] [phone] * (ABNORMAL) CBC auto differential (11/26/2024 9:04 AM EDT) Pathologist [facility] White Blood Count 7.1 4.8 - 10.8 X10*3/uL [facility] Red Blood Count 5.12 4.60 - 5.80 X10*6/uL [facility] Hemoglobin 15.8 14.0 - 18.0 g/dl [facility] Hematocrit 46.1 42.0 - 52.0 % [facility] Mean Corpuscular Volume 90.0 80.0 - 98.0 fL [facility] Mean Corpuscular Hemoglobin 30.9 27.0 - 33.0 pg [facility] Mean Corpuscular HGB Conc 34.3 31.0 - 36.0 g/dl [facility] Red Cell Distribution Width 12.2 11.0 - 16.0 % [facility] Platelet Count 249 160 - 400 X10*3/uL [facility] Mean Platelet Volume 11.1 9.4 - 12.4 fL [facility] Neutrophils Percent Auto 56.2 45 - 73 % [facility] Imm Gran Pct Auto 1.1(H) 0.0 - 0.4 % [facility] Lymphocytes Percent Auto 33.7 20 - 40 % [facility] Monocytes Percent Auto 7.3 2 - 11 % [facility] Eosinophils Percent Auto 1.3 0 - 4 % [facility] Basophils Percent Auto 0.4 0 - 2 % [facility] NRBC Pct Auto 0.0 0.0 - 0.2 /100WBC [facility] Neutrophils Absolute Auto 4.0 2.0 - 8.3 x10*3/uL [facility] Imm Gran Abs Auto 0.08(H) 0.00 - 0.03 X10*3/uL [facility] Lymphocytes Absolute Auto 2.4 1.2 - 4.9 X10*3/uL [facility] Monocytes Absolute Auto 0.5 0.1 - 1.2 X10*3/uL [facility] Eosinophils Absolute Auto 0.1 0.0 - 0.4 X10*3/uL [facility] Basophils Absolute Auto 0.0 0.0 - 0.2 X10*3/uL [facility] NRBC Abs Auto 0.000 0.0 - 0.012 X10*3/uL [facility] Blood Venous blood specimen / Unknown 11/26/2024 9:04 AM EDT 11/26/2024 9:04 AM EDT us Lizy Garcia [facility] LAB BLOOD ORDERABLES Final Resul t [facility] [address] [place] [phone] * Thyroid Peroxidase Antibodies (11/26/2024 9:04 AM EDT) Thyroid Peroxidase Antibodies 6 <9 IU/mL [facility] Comment:THIS TEST WAS PERFOR MED AT:[employer] [place] [phone] ELLISON MD Blood Venous blood specimen / Unknown 11/26/2024 9:04 AM EDT 11/26/2024 9:04 AM EDT Lizy Garcia ANP LAB BLOOD ORDERABLES Final Resul t Performing Organization Address [facility] Co de Phone Number [facility] [address] [place] [phone] * (ABNORMAL) Iron And Total Iron Binding Capacity (11/26/2024 9:04 AM EDT) Iron 155 45 - 160 mcg/dL [facility] Total Iron Binding Capacity 259 228 - 428 mcg/dL [facility] Percent Iron Saturation 60(H) 15 - 50 % [facility] Unsaturated Iron Binding 104 ug/dL [facility] Blood Venous blood specimen / Unknown 11/26/2024 9:04 AM EDT 11/26/2024 9:04 AM EDT us Lizy Garcia ANP LAB BLOOD ORDERABLES Final Resul t Performing Organization Address [facility] Phone Number [facility] [address] [place] [phone] * Sed Rate by Modified Agustin (11/26/2024 9:04 AM EDT) Erythrocyte Sedimentation Rate 2 0 - 15 MM/HR [facility] Comment:Patients with polycy themia and many hemoglobin abnormalitiesmay have depressed sed rates whereas patients with anemiamay have elevated sed rates. Blood Venous blood specimen / Unknown 11/26/2024 9:04 AM EDT 11/26/2024 9:04 AM EDT Lizy Garcia ANP LAB BLOOD ORDERABLES Final Resul t Performing Organization Address [facility] Co de Phone Number [facility] [address] [place] [address] [place] [phone] * C-reactive Protein (11/26/2024 9:04 AM EDT) C Reactive Protein 0.12 < or = 0.50 mg/dL [facility] Blood Venous blood specimen / Unknown 11/26/2024 9:04 AM EDT 11/26/2024 9:04 AM EDT [facility] LAB BLOOD ORDERABLES Final Resul t [facility] [address] [place] [phone] * TK Screen,IFA, with Reflex to Titer and Pattern (11/26/2024 9:04 AM EDT) Anti Nuclear Antibody Screen NEGATIVE NEGATIVE [facility] Comment:TK IFA is a first [...] clinicallysuspected inflammatory myopathies.AC-0: NegativeInternational Consensus on TK Patterns(https://doi.org/10.1515/dwwy-9941-2702)For additional information, please refer tohttp://education.[employer]/faq/XGG420(This link is being provided for informational/educational purposes only.)THIS TEST WAS PERFORMED AT:[employer] [place] [phone] ELLISON MD TK Titer TNP [facility] TK Pattern TNP [facility] TK TITER 2 (REF LAB) TNP [facility] TK Pattern 2 [facility] TK TITER 3 [facility] TK PATTERN 3 [facility] Blood Venous blood specimen / Unknown 11/26/2024 9:04 AM EDT 11/26/2024 9:04 AM EDT Lizy Garcia ANP LAB BLOOD ORDERABLES Final Resul t Performing Organization Address [facility] de Phone Number [facility] [address] [place] [phone] * (ABNORMAL) Hemoglobin A1c (11/26/2024 9:04 AM EDT) Hemoglobin A1c 7.8(H) <6.0 % [facility] Comment:Hemoglobin A1C Refer ence Range Adults: 4.8 - 6.0 % Non diabetic: < 6.0 % Goal: < 7.0 %Additional Action Suggested: > 8.0 %Note: Hemoglobin A1c results are invalid for patients with abnormal amounts of HbF. Blood transfusions may impact the HbA1c concentration in the patient sample. Estimated Average Glucose 177 mg/dL [facility] Comment:eAG = Estimated ave rage glucose which is %A1C expressed asaverage glucose, using the formula of the Z9X-VpiuiulAanurwx Glucose study (ADAG), Diabetes Care, Vol.31,#8,Sep. 2007 Blood Venous blood specimen / Unknown 11/26/2024 9:04 AM EDT 11/26/2024 9:04 AM EDT Lizy Garcia ANP LAB BLOOD ORDERABLES Final Resul t Performing Organization Address City/[facility] Co de Phone Number [facility] [address] [place] [phone] * (ABNORMAL) Ferritin (11/26/2024 9:04 AM EDT) Ferritin 976(H) 20 - 250 ng/mL [facility] Blood Venous blood specimen / Unknown 11/26/2024 9:04 AM EDT 11/26/2024 9:04 AM EDT Lizy Garcia ANP LAB BLOOD ORDERABLES Final Resul t Performing Organization Address [facility] Co de Phone Number [facility] [address] [place] [phone] * Vitamin B12 (11/26/2024 9:04 AM EDT) Vitamin B12 374 200 - 900 pg/mL [facility] Comment:NORMAL 200-900 PG/ML INDETERMINATE 160-199 PG/ML DEFICIENT < 160 PG/ML Blood Venous blood specimen / Unknown 11/26/2024 9:04 AM EDT 11/26/2024 9:04 AM EDT Lizy Garcia ANP LAB BLOOD ORDERABLES Final Resul t Performing Organization Address [facility] Co de Phone Number [facility] [address] [place] [phone] * (ABNORMAL) Lipid Panel, Standard (11/26/2024 9:04 AM EDT) Triglycerides 232(H) <150 mg/dL [facility] Comment:Desirable Triglyceri de: less than 150 mg/dLBorderline High Triglyceride 150-199 mg/dLHigh Triglyceride: 200-499 mg/dLVery High Triglyceride: greater than or equal to 5OO mg/dL Cholesterol 276(H) <200 mg/dL [facility] Comment:Desirable Cholestero l: less than 200 mg/dLBorderline High Cholesterol: 200-239 mg/dLHigh Cholesterol: greater than 239 mg/dL LDL Cholesterol Calculated 186(H) <100 mg/dL [facility] Comment:Desirable LDL: less than 100 mg/dLNear Optimal/Above Optimal LDL: 110- 129 mg/dLBorderline High LDL: 130-159 mg/dLHigh LDL: 160-189 mg/dLVery High LDL: greater than or equal to 190 mg/dL HDL Cholesterol 44 >40 mg/dL [facility] Comment:Desirable HDL: great er than 40 mg/dL Note: This HDL assay may give artificially low results in patients with liver disease. Blood Venous blood specimen / Unknown 11/26/2024 9:04 AM EDT 11/26/2024 9:04 AM EDT Lizy HERNANDEZ LAB BLOOD ORDERABLES Final Resul t [facility] [address] [place] [phone] * (ABNORMAL) POCT HGB A1C (10/08/2024 4:13 PM EDT) [facility] Hemoglobin A1C 6.9(A) 4.0 - 5.7 % QC Media Lot # [id number] Lot# Expiration Date , Blood 10/08/2024 4:13 PM EDT Lizy Garcia ANP POINT OF CARE TEST ENTER/EDIT OR DERABLES Final Result * POCT Glucose (10/08/2024 4:11 PM EDT) [facility] Glucose Blood, POC 155 60 - 200 mg/dL [employer] Lot # [id number] Lot# Expiration Date [id number] Blood Capillary blood specimen / Unknown 10/08/2024 4:11 PM EDT Lizy Garcia ANP POINT OF CARE TEST ENTER/EDIT OR DERABLES Final Result * Hm Colonoscopy (05/24/2020) [facility] Colonoscopy Normal Normal Historical Provider HEALTH MAINTENANCE Final Result * HEPATITIS C AB W/REFL TO HCV RNA, QN, PCR (01/09/2020 10:22 AM EST) [facility] HEPATITIS C ANTIBODY NON-REACT GIOVANNY NON-REACT GIOVANNY [facility] INDEX 0.02 <1.00 [facility] Comment: HCV antibody was non-reactive. There is no laboratory evidence of HCV infection. In most cases, no further action is required. However, if recent HCV exposure is suspected, a test for HCV RNA (test code 79262) is suggested. For additional information please refer to http://[employer]/faq/LVY56q8 (This link is being provided for informational/ educational purposes only.) HEPATITIS C ANTIBODY NON-REACT GIOVANNY NON-REACT GIOVANNY [facility] INDEX 0.02 <1.00 [facility] Comment: HCV antibody was non-reactive. There is no laboratory evidence of HCV infection. In most cases, no further action is required. However, if recent HCV exposure is suspected, a test for HCV RNA (test code 35506) is suggested. For additional information please refer to http://[employer]/faq/JPD29e3 (This link is being provided for informational/ educational purposes only.) HEPATITIS C ANTIBODY NON-REACT GIOVANNY NON-REACT GIOVANNY [facility] INDEX 0.02 <1.00 [facility] Comment: HCV antibody was non-reactive. There is no laboratory evidence of HCV infection. In most cases, no further action is required. However, if recent HCV exposure is suspected, a test for HCV RNA (test code 97278) is suggested. For additional information please refer to http://[employer]/faq/VCT55d8 (This link is being provided for informational/ educational purposes only.) 01/09/2020 10:2 2 AM EST us Lizy Garcia ANP HISTORICAL/NON ORDERABLE LABS Fi nal Result [facility] [address] * HIV 1/2 ANTIGEN/ANTIBODY,FOURTH GENERATION W/RFL (01/09/2020 10:22 AM EST) HIV-1/2 ANTIGEN AND ANTIBODIES, 4TH GENERATION W/ REFLEX NON-REACT GIOVANNY NON-REACT GIOVANNY [facility] Comment: HIV-1 antigen and HIV-1/HIV-2 [...] purpose. For additional information please refer to http://[employer]/faq/CCE416 (This link is being provided for informational/ [...] purpose. For additional information please refer to http://[employer]/faq/DPX521 (This link is being provided for informational/ educational purposes only.) The performance of this assay has not been clinically validated in patients less than 2 years old. HIV-1/2 ANTIGEN AND ANTIBODIES, 4TH GENERATION W/ REFLEX NON-REACT GIOVANNY NON-REACT GIOVANNY [facility] Comment: HIV-1 antigen and HIV-1/HIV-2 [...] purpose. For additional information please refer to http://[employer]/faq/LZZ782 (This link is being provided for informational/ educational purposes only.) The performance of this assay has not been clinically validated in patients less than 2 years old. 01/09/2020 10:2 2 AM EST us Lizy Garcia MARY LAB BLOOD ORDERABLES Final Resul t [facility] [address] from Last 3 Months or Most Recently Relevant to Health Maintenance Insurance [facility] C3 DENTAL-[facility] MEDICAID STAND ADULT Care Teams [employer] Mixer Relationship Specialty Start Date End Date Lizy Garcia ANP [address] [place] [address] PCP - General Family Medicine 12/24/19 Shira Mack RN [address] [place], [place] [phone] [facility] 03/27/24
== END 2024-12-20 08:04 | disposition home or self-care (01) ==
LOC: HO.CT 08:03
PROVIDERS: PCP Nurse Practitioner Primary Care; Visit Provider Nurse Practitioner Primary Care
DX: R41.3 Other amnesia (principal)
CPT/HCPCS: 70450

== ENCOUNTER → 2024-12-20 08:06 | Outpatient (BNV) | payer MEDICAID, SELFPAY | PROVIDERS: PCP Nurse Practitioner Primary Care; Visit Provider Radiology Diagnostic Radiology | DX: R41.3 Other amnesia (principal); Z87.820 Personal history of traumatic brain injury | CPT/HCPCS: 70450 ==

== ENCOUNTER 2024-12-24 08:21 | Outpatient (AMB) | payer MEDICAID, SELFPAY ==
--- NOTE | 2024-12-24 08:25 | A.OFFVIS_ITS ---
Vital Signs 12/24/24 08:35 Height 5 ft 6 in Weight 175 lb BMI 28.2 BP 123/72 Blood Pressure Location Rt brachial Position Sitting Pulse 71 Intake Visit Reasons: bleeding hemorrhoids Intake Note: This patient presents for an assessment for bleeding hemorrhoids. Pt c/o: reports rectal bleeding, occasional constipation, colonoscopy 2020. Manager Gift Required: No Accompanied by: Self / Same As Patient Allergies No Known Allergies (No Known Allergies*) Allergy (Verified 12/24/24 08:36) Medication List - Last Reconciled 12/24/24 by Jeremías Garcia MD atorvastatin 20 mg PO BEDTIME blood sugar diagnostic (AccessPayStyle Precision Junior Strips) As directed blood-glucose meter (AccessPayStyle [place] Lite kit) As directed cholecalciferol (vitamin D3) (Vitamin D3) 25 mcg PO DAILY docusate sodium 100 mg PO BEDTIME flash glucose scanning reader ([employer] Biotechyle Jey 2 [place]) As directed flash glucose sensor (AccessPayStyle Jey 2 Sensor kit) As directed hydrocortisone 2.5% (Anusol-HC) 1 appl NC BID-QID PRN lancets (FreeStyle Lancets) As directed metformin ER 500 mg PO BID omeprazole 20 mg PO QAM pen needle, diabetic As directed HPI HPI bleeding hemorrhoids: Details: 64-year-old male referred for bleeding hemorrhoids. He describes seeing small amounts of bright blood on wiping after bowel movements. He says that his stools did not appear bloody at all. He does not notice this every day but he says this has frequent He does not think he is constipated He had a colonoscopy about 4 years ago and he says that this was unremarkable. He also describes some itching around his anus. [facility] Medical History (Updated 12/24/24 @ 08:52 by Jeremías Garcia MD) Vitiligo Diabetes Prostate cancer GERD (gastroesophageal reflux disease) Elevated cholesterol Erectile dysfunction BPH (benign prostatic hyperplasia) Surgical History Hx of prostate biopsy H/O knee surgery H/O colonoscopy Family History Mother Advancing dementia Social History Household Members: Spouse Are you a primary point of care specialist to a significant other at home: No Do you presently have visiting nurse or other home services: No Alcohol intake: current Alcohol intake frequency: holidays/special occasions only Alcohol type: beer Patient Tobacco Use Status: Never used Tobacco Review of Systems Const Denies chills and Denies fever(s) Card Denies chest pain, Denies dyspnea and Denies dyspnea on exertion Resp Denies cough, Denies dyspnea and Denies dyspnea on exertion GI Denies hematochezia and Denies change in bowel habits Denies hematuria and Denies difficulty urinating Musc Denies back pain and Denies limited range of motion Neuro Denies focal weakness and Denies convulsions Psych Denies depression and Denies mood swings Physical Exam Const General: comfortable and no acute distress Orientation/consciousness: patient oriented x3 Neck Neck: Yes no lymphadenopathy Resp Auscultation: clear to auscultation bilaterally Cardio Rhythm: regular rhythm GI Other: Rectal exam shows hemorrhoids, external, with vitiligo, no lesions Palpation (GI): Soft to palpation, nontender and no guarding Skin Other: Has been utilizing the various parts Neuro General: patient oriented x3 Office Procedures Anoscopy He was in kneeling madeline-knife position. The anoscope was gently inserted a full examination of the entire anal canal was done. He did have moderate size internal external hemorrhoids on the left side. There were no other lesions seen. There was no fissure ulceration. There was bleeding. There was no induration on digital exam. [id number] Assessment & Plan Assessment & Plan (1) Bleeding hemorrhoid: Code(s): K64.9 - Unspecified hemorrhoids Category: Medical Plan: He describes seeing streaks of bright blood on wiping after a bowel movement. I anoscopy in physical exam does show internal external hemorrhoids which the likely source of his outlet bleeding. I explained to him the option of hemorrhoidectomy for severe symptoms. I explained the risks including but not limited to bleeding, infections, sphincter injury, as well as the benefits and alternatives. I reviewed with him what to expect postoperatively. He says that he is interested in surgery at some point. 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 He also says that really sees small amounts of blood on wiping so he is not in any smyth to have surgery. I did tell him that if he has any questions at some point, he is welcome to come back to the office to be re-evaluated. Coding Level of Care Code New Pt Level 3 (23567) Diagnoses Bleeding hemorrhoid K64.9 CPT Codes Details - CPT: 51033-[id number] ([id number])
[2024-12-24 08:35] VITALS: BP 123/72; PULSE 71; BMI 28.2
--- OUTSIDE RECORDS SUMMARY | 2024-12-24 08:43 | XMS_ITS | Encounter Summary ---
Author Organization [employer] Address [address] [place] [address] Care Team Providers Care Rope Tier Name Role Phone Lizy Garcia Primary Care Provider Shira Mack RN Unavailable [phone] Reason for Visit * Reason Comments Med Refill Encounter Details Date Type Department Care Team ([facility] st Contact Info) Description 05/13/2024 Refill [facility] [address] [place], [place] [phone] Taras Shrestha MD [address] [place] [address] Dermatophytosis Social History Tobacco Use Types Packs/Day [...] documented as of this encounter Care Teams Rope Tier Relationship Specialty Start Date End Date Lizy Garcia ANP [address] [place] [address] PCP - General Family Medicine 12/24/19 Shira Mack, RN [address] [place] [address] Sale Professional Digital Marketing Family Medicine 03/27/24 documented as of this encounter
--- OUTSIDE RECORDS SUMMARY | 2024-12-24 08:43 | XMS_ITS | Encounter Summary ---
Author Organization [employer] Address [address] [facility] [facility] [address] [place] [address] Care Team Providers Care Stake Driver Name Role Phone Lizy Garcia Primary Care Provider [phone] Shira Mack RN Unavailable [phone] Encounter Details Date Type Department Care [...] on filedocumented in this encounter Care Teams Stake Driver Relationship Specialty Start Date End Date Lizy Garcia ANP [address] [place] [address] PCP - General Family Medicine 12/24/19 Shira Mack, BENY [address] [place], [place] [phone] Support Manager Family Medicine 03/27/24 documented as of this encounter
--- OUTSIDE RECORDS SUMMARY | 2024-12-24 08:43 | XMS_ITS | Encounter Summary ---
Author Organization [employer] Address [address] [place] [address] Care Team Providers Care Corporate Communications Associate Name Role Phone Lizy Garcia Primary Care Provider [phone] Shira Mack RN Unavailable [phone] Reason for Visit * Reason Comments Med Refill Encounter Details Date Type Department Care Team ([facility] st Contact Info) Description 01/21/2023 Refill [facility] [address] [place] [address] Lizy Garcia ANP [address] [place] [address] GERD without esophagitis Social History Tobacco Use [...] reflux documented in this encounter Care Teams Corporate Communications Associate Relationship Specialty Start Date End Date Lizy Garcia ANP [address] [place] [address] PCP - General Family Medicine 12/24/19 Shira Mack RN [address] [place] [address] Church Administrator Family Medicine 03/27/24 documented as of this encounter
--- OUTSIDE RECORDS SUMMARY | 2024-12-24 08:43 | XMS_ITS | Encounter Summary ---
Author Organization [employer] Address [address] [place] [address] Care Team Providers Care Furniture Restorer Name Role Phone Lizy Garcia Primary Care Provider [phone] Shira Mack RN Unavailable [phone] Encounter Details Date Type Department Care Team (Latest Contact Info) Description 11/26/2024 Results Follow-Up [facility] [address] [place] [address] Lizy Garcia ANP [address] [place] [address] PSA, Total With Reflex to PSA, Free, [...] please check with Lilly or Nancy at [facility] to see if they have any record of treatment history? documented in this encounter Plan of Treatment Not on file documented as of this encounter Visit Diagnoses Not on filedocumented in this encounter Additional Health Concerns Assessment Noted Time PHQ-9 Depression Total Score: 0 04/10/19 3:43 PM EST documented as of this encounter Care Teams Furniture Restorer Relationship Specialty Start Date End Date Lizy Garcia ANP [address] [place] [address] PCP - General Family Medicine 12/24/19 Shira Mack, RN [address] [place] [address] Opto Mechanical Engineer Family Medicine 03/27/24 documented as of this encounter
--- OUTSIDE RECORDS SUMMARY | 2024-12-24 08:43 | XMS_ITS | Encounter Summary ---
Author Organization [employer] Address [address] [place] [address] Care Team Providers Care Senior Officer Name Role Phone Lizy Garcia Primary Care Provider [phone] Shira Mack RN Unavailable [phone] Encounter Details Date Type Department Care [...] on filedocumented in this encounter Care Teams Senior Officer Relationship Specialty Start Date End Date Lizy Garcia ANP [address] [place] [address] PCP - General Family Medicine 12/24/19 Shira Mack, RN [address] [place], [place] [phone] Biology Specialist Family Medicine 03/27/24 documented as of this encounter
--- OUTSIDE RECORDS SUMMARY | 2024-12-24 08:44 | XMS_ITS | Clinical Summary ---
Author Organization [email or web address] Address [address] [facility] [address] [place] [address] Care Team Providers Care Train Operations Manager Name Role Phone Parul Alvarez Primary Care Provider [phone] Shira Mack RN Unavailable [phone] Allergies No known active allergies Medications [...] 25 Active Blood Glucose Monitoring Suppl (FreeStyle [place] Lite) w/Device kitIndications:Hyp erglycemia due to diabetes [...] each 03/05/19 25 026 Active Continuous Glucose Scuba Diving Teacher (FreeStyle Jey 2 [place]) deviceIndications: New onset type 2 diabetes mellitus [...] Description 12/10/2024 3:00 PM EDT Office Visit [address] [address] Parul Alvarez ANP Dyslipidemia (Primary Dx); Encounter for vaccination; Encounter for immunization; Type 2 diabetes mellitus with hyperlipidemia (HCC); Routine screening for STI (sexually transmitted infection) 12/10/2024 Travel 12/09/[address] [address] Parul Alvarez ANP chart prep 12/04/2024 Results Follow-Up [address] [address] Parul Alvarez ANP Lipid Panel, Standard 11/28/2024 Results Follow-Up [address] [address] Parul Alvarez ANP POCT Glucose, POCT HGB A1C, Vitamin B12, Additional followed-up results: 9 11/26/2024 Results Follow-Up [address] [address] Parul Alvarez ANP PSA, Total With Reflex to PSA, Free, Confirmatory Syphilis Profile 11/26/2024 Orders Only GENERIC EXTERNAL DATA DEPARTMENT Provider, Generic External Data 11/24/2024 Telephone [facility] [address] [place] [phone] Shira Mack, strategic partner development manager Orders 10/22/2024 3:30 PM EDT Clinical Support [facility] [address] [place] [address] Shira Mack RN Memory loss 10/22/2024 Travel 10/17/2024 Refill [facility] [address] [place] [address] Parul Alvarez ANP GERD without esophagitis 10/08/2024 3:45 PM EDT Office Visit [address] [address] Parul Alvarez ANP Memory loss (Primary Dx); Type 2 diabetes mellitus with hyperlipidemia (CMS/HCC) ([facility]/HCC); Vitiligo; Hemorrhoids, unspecified hemorrhoid type 10/08/2024 Travel 10/07/2024 Telephone [facility] [address] [place] [address] Parul Alvarez ANP CHART PREP 10/02/2024 9:15 AM EDT Office Visit [facility] [address] [place] [address] [place], [place], [place] Presbyopia (Primary Dx) from [...] Procedure Name Priority Date/Time Associated Diagnosis Comments CT HEAD WO CONTRAST Routine 12/22/2024 3 :53 PM EDT Memory loss CONFIRMATORY SYPHILIS PROFILE Routine 11/26/2024 9:04 AM [...] Recently Relevant to Health Maintenance Results * CT Head w/o Contrast (12/22/2024 3:53 PM EDT) Anatomical Region Laterality Modality Head, Neck Computed Tomogra phy 12/22/2024 3:53 PM EDT Narrative 12/22/2024 3:56 PM EDT [place] [address] CT Scan Report Signed Patient: James Chou MR#: [id number] 1 : 1960 Acct:[id number] Age/Sex: 64 / M ADM Date: 12/20/24 Loc: HO.CT Attending Dr: Parul Alvarez NP Ordering Physician: PARUL ALVAREZ NP Date of Service: 12/20/24 Procedure(s): CT head/brain wo IV con Accession Number(s): [id number] cc: PARUL ALVAREZ NP Report Number: [id number]: Total DLP = 742.00 mGy-cm Reason for Exam: memory loss, 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 No extra-axial fluid collection. Mild periventricular and subcortical white matter hypoattenuation, nonspecific, most frequently ascribed to chronic small vessel ischemic disease. 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 Visualized orbits are within normal range. Visualized paranasal sinuses, and mastoid air cells are unremarkable. The cranium appears intact. Superficial soft tissue is unremarkable. Impression: 1. No acute intracranial finding. 2. Chronic findings as discussed above. This document has been electronically signed by: Sharon Toure MD on 12/22/2024 15:53:56 Dictated By: Sharon Toure MD Signed By: <Electronically signed by Sharon Toure MD in OV> 12/22/24 1554 DD/ 52 TD/TT: 12/22/241552 Crew Attendant: Procedure Note Donotuseinterpreter, Image - 10/27/[address] [address] [address] Scan Report Signed Patient: James ChouMR#: [id number] 1 : 1960cct:[id number] Age/Sex: 64 / MADM Date: 12/20/24 Loc: HO.CT Attending Dr: Parul Alvarez UNDERWRITING SPECIALIST Ordering Physician: PARUL ALVAREZ NP Date of Service: 12/20/24 Procedure(s): CT head/brain wo IV con Accession Number(s): [id number] cc: PARUL ALVAREZ NP Report Number: [id number]: Total DLP = 742.00 mGy-cm Reason for Exam: memory loss, 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 No extra-axial fluid collection. Mild periventricular and subcortical white matter hypoattenuation, nonspecific, most frequently ascribed to chronic small vessel ischemic disease. 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 Visualized orbits are within normal range. Visualized paranasal sinuses, and mastoid air cells are unremarkable. The cranium appears intact. Superficial soft tissue is unremarkable. Impression: 1. No acute intracranial finding. 2. Chronic findings as discussed above. This document has been electronically signed by: Sharon Toure MD on 12/22/2024 15:53:56 Dictated By: Sharon Toure MD Signed By: <Electronically signed by Sharon Toure MD in OV> 12/22/24 1554 DD/ 1553 TD/TT: 12/22/241552 Crew Attendant: Parul HERNANDEZ IMG CT PROCEDURES Final Result * (ABNORMAL) Confirmatory Syphilis Profile (11/26/2024 9:04 AM EDT) Rapid Plasma Reagin, Quant Non-React giovanny Nonreactive [facility] Treponema pallidum Antibody, Particle Agglutination Reactive( A) Nonreactive [facility] 11/26/2024 9:04 AM EDT 11/26/2024 10:31 AM EDT Parul Alvarez [facility] BLOOD ORDERABLES Final Resul t Performing Organization Address [facility] Co de Phone Number [facility] [address] [place] [phone] * (ABNORMAL) Syphilis Screen (11/26/2024 9:04 AM EDT) Syphilis Screen Reactive( A) Nonreactive [facility] Comment:Reactive specimens a re sent to the [facility] Labfor confirmatory tests. Blood Venous blood specimen / Unknown 11/26/2024 9:04 AM EDT 11/26/2024 9:04 AM EDT us Parul Alvarez [facility] BLOOD ORDERABLES Final Resul t Performing Organization Address [facility] Co de Phone Number [facility] [address] [place] [phone] * TSH W/Reflex to FT4 (11/26/2024 9:04 AM EDT) TSH reflex Free T4 1.49 0.32 - 4.0 uIU/mL [facility] Blood Venous blood specimen / Unknown 11/26/2024 9:04 AM EDT 11/26/2024 9:04 AM EDT Parul Alvarez [facility] BLOOD ORDERABLES Final Resul t Performing Organization Address [facility] de Phone Number [facility] [address] [place] [phone] * (ABNORMAL) PSA, Total With Reflex to PSA, Free (11/26/2024 9:04 AM EDT) PSA,Total (Free>4and<10) 14.95(H ) 0.00 - 4.00 ng/mL [facility] Comment:A Free PSA was not [...] are between 4.0 and 10.0 ng/mL.PSA methodology: Centrix Alinity i ChemiluminescentMicroparticle Immunoassay (CMIA) 11/26/2024 9:04 AM EDT 11/26/2024 9:04 AM EDT us Generic External Data Provider LAB BLOOD ORDERAB LES Final Result [facility] [address] [place] [phone] * (ABNORMAL) CBC auto differential (11/26/2024 9:04 AM EDT) White Blood Count 7.1 4.8 - 10.8 X10*3/uL [facility] Red Blood Count 5.12 4.60 - 5.80 X10*6/uL [facility] Hemoglobin 15.8 14.0 - 18.0 g/dl [facility] Hematocrit 46.1 42.0 - 52.0 % [facility] Mean Corpuscular Volume 90.0 80.0 - 98.0 fL [facility] Mean Corpuscular Hemoglobin 30.9 27.0 - 33.0 pg [facility] Mean Corpuscular HGB Conc 34.3 31.0 - 36.0 g/dl [facility] Red Cell Distribution Width 12.2 11.0 - 16.0 % [facility] Platelet Count 249 160 - 400 X10*3/uL [facility] Mean Platelet Volume 11.1 9.4 - 12.4 fL [facility] Neutrophils Percent Auto 56.2 45 - 73 % [facility] Imm Gran Pct Auto 1.1(H) 0.0 - 0.4 % [facility] Lymphocytes Percent Auto 33.7 20 - 40 % [facility] Monocytes Percent Auto 7.3 2 - 11 % [facility] Eosinophils Percent Auto 1.3 0 - 4 % [facility] Basophils Percent Auto 0.4 0 - 2 % [facility] NRBC Pct Auto 0.0 0.0 - 0.2 /100WBC [facility] Neutrophils Absolute Auto 4.0 2.0 - 8.3 x10*3/uL [facility] Imm Gran Abs Auto 0.08(H) 0.00 - 0.03 X10*3/uL [facility] Lymphocytes Absolute Auto 2.4 1.2 - 4.9 X10*3/uL [facility] Monocytes Absolute Auto 0.5 0.1 - 1.2 X10*3/uL [facility] Eosinophils Absolute Auto 0.1 0.0 - 0.4 X10*3/uL [facility] Basophils Absolute Auto 0.0 0.0 - 0.2 X10*3/uL [facility] NRBC Abs Auto 0.000 0.0 - 0.012 X10*3/uL [facility] Blood Venous blood specimen / Unknown 11/26/2024 9:04 AM EDT 11/26/2024 9:04 AM EDT [facility] LAB BLOOD ORDERABLES Final Resul t [facility] [address] [place] [phone] [phone] * Thyroid Peroxidase Antibodies (11/26/2024 9:04 AM EDT) Thyroid Peroxidase Antibodies 6 <9 IU/mL [facility] Comment:THIS TEST WAS PERFOR MED AT:[facility] [place] [phone] ELLISON MD Blood Venous blood specimen / Unknown 11/26/2024 9:04 AM EDT 11/26/2024 9:04 AM EDT Parul Alvarez [facility] BLOOD ORDERABLES Final Resul t Performing Organization Address [facility] de Phone Number [facility] [address] [place] [phone] * (ABNORMAL) Iron And Total Iron Binding Capacity (11/26/2024 9:04 AM EDT) [facility] Iron 155 45 - 160 mcg/dL [facility] Total Iron Binding Capacity 259 228 - 428 mcg/dL [facility] Percent Iron Saturation 60(H) 15 - 50 % [facility] Unsaturated Iron Binding 104 ug/dL [facility] Blood Venous blood specimen / Unknown 11/26/2024 9:04 AM EDT 11/26/2024 9:04 AM EDT Parul Alvarez [facility] BLOOD ORDERABLES Final Resul t Performing Organization Address [facility] Phone Number [facility] [address] [place] [phone] * Sed Rate by Modified Agustin (11/26/2024 9:04 AM EDT) [facility] Erythrocyte Sedimentation Rate 2 0 - 15 MM/HR [facility] Comment:Patients with polycy themia and many hemoglobin abnormalitiesmay have depressed sed rates whereas patients with anemiamay have elevated sed rates. Blood Venous blood specimen / Unknown 11/26/2024 9:04 AM EDT 11/26/2024 9:04 AM EDT Parul Alvarez [facility] BLOOD ORDERABLES Final Resul t Performing Organization Address [facility] de Phone Number [facility] [address] [place] [phone] * C-reactive Protein (11/26/2024 9:04 AM EDT) C Reactive Protein 0.12 < or = 0.50 mg/dL [facility] Blood Venous blood specimen / Unknown 11/26/2024 9:04 AM EDT 11/26/2024 9:04 AM EDT Parul Alvarez [facility] BLOOD ORDERABLES Final Resul t [facility] [address] [place] [phone] * TK Screen,IFA, with Reflex to Titer and Pattern (11/26/2024 9:04 AM EDT) Anti Nuclear Antibody Screen NEGATIVE NEGATIVE [facility] Comment:TK IFA is a first [...] clinicallysuspected inflammatory myopathies.AC-0: NegativeInternational Consensus on TK Patterns(https://doi.org/10.1515/csov-0982-3152)For additional information, please refer tohttp://education.Bueda.Wyldfire/faq/OZR834(This link is being provided for informational/educational purposes only.)THIS TEST WAS PERFORMED AT:[facility] [place] [phone] ELLISON MD TK Titer TNP [facility] TK Pattern [facility] TK TITER 2 (REF LAB) [facility] TK [facility] TK TITER 3 [facility] TK PATTERN 3 [facility] Blood Venous blood specimen / Unknown 11/26/2024 9:04 AM EDT 11/26/2024 9:04 AM EDT Parul Alvarez ANP LAB BLOOD ORDERABLES Final Resul t Performing Organization Address [facility] Co de Phone Number [facility] [address] [place] [phone] * (ABNORMAL) Hemoglobin A1c (11/26/2024 9:04 AM EDT) Hemoglobin A1c 7.8(H) <6.0 % [facility] Comment:Hemoglobin A1C Refer ence Range Adults: 4.8 - 6.0 % Non diabetic: < 6.0 % Goal: < 7.0 %Additional Action Suggested: > 8.0 %Note: Hemoglobin A1c results are invalid for patients with abnormal amounts of HbF. Blood transfusions may impact the HbA1c concentration in the patient sample. Estimated Average Glucose 177 mg/dL [facility] Comment:eAG = Estimated ave rage glucose which is %A1C expressed asaverage glucose, using the formula of the E2Z-SduungrZefzgpu Glucose study (ADAG), Diabetes Care, Vol.31,#8,Sep. 2007 Blood Venous blood specimen / Unknown 11/26/2024 9:04 AM EDT 11/26/2024 9:04 AM EDT us Parul Alvarez ANP LAB BLOOD ORDERABLES Final Resul t Performing Organization Address [facility] Co de Phone Number [facility] [address] [place] [phone] * (ABNORMAL) Ferritin (11/26/2024 9:04 AM EDT) Ferritin 976(H) 20 - 250 ng/mL [facility] Blood Venous blood specimen / Unknown 11/26/2024 9:04 AM EDT 11/26/2024 9:04 AM EDT us Parul Alvarez ANP LAB BLOOD ORDERABLES Final Resul t Performing Organization Address [facility] Co de Phone Number [facility] [address] [place] [phone] * Vitamin B12 (11/26/2024 9:04 AM EDT) Vitamin B12 374 200 - 900 pg/mL [facility] Comment:NORMAL 200-900 PG/ML INDETERMINATE 160-199 PG/ML DEFICIENT < 160 PG/ML Blood Venous blood specimen / Unknown 11/26/2024 9:04 AM EDT 11/26/2024 9:04 AM EDT Parul Alvarez ANP LAB BLOOD ORDERABLES Final Resul t [facility] [address] [place] [phone] * (ABNORMAL) Lipid Panel, Standard (11/26/2024 9:04 AM EDT) Triglycerides 232(H) <150 mg/dL [facility] Comment:Desirable Triglyceri de: less than 150 mg/dLBorderline High Triglyceride 150-199 mg/dLHigh Triglyceride: 200-499 mg/dLVery High Triglyceride: greater than or equal to 5OO mg/dL Cholesterol 276(H) <200 mg/dL [facility] Comment:Desirable Cholestero l: less than 200 mg/dLBorderline High Cholesterol: 200-239 mg/dLHigh Cholesterol: greater than 239 mg/dL LDL Cholesterol Calculated 186(H) <100 mg/dL [facility] Comment:Desirable LDL: less than 100 mg/dLNear Optimal/Above Optimal LDL: 110- 129 mg/dLBorderline High LDL: 130-159 mg/dLHigh LDL: 160-189 mg/dLVery High LDL: greater than or equal to 190 mg/dL HDL Cholesterol 44 >40 mg/dL [facility] Comment:Desirable HDL: great er than 40 mg/dL Note: This HDL assay may give artificially low results in patients with liver disease. Blood Venous blood specimen / Unknown 11/26/2024 9:04 AM EDT 11/26/2024 9:04 AM EDT Parul Alvarez ANP LAB BLOOD ORDERABLES Final Resul t [facility] [address] [place] [phone] * (ABNORMAL) POCT HGB A1C (10/08/2024 4:13 PM EDT) [facility] Hemoglobin A1C 6.9(A) 4.0 - 5.7 % QC Media Lot # [id number] Lot# Expiration Date , Blood 10/08/2024 4:13 PM EDT Parul Alvarez ANP POINT OF CARE TEST ENTER/EDIT OR DERABLES Final Result * POCT Glucose (10/08/2024 4:11 PM EDT) [facility] Glucose Blood, POC 155 60 - 200 mg/dL [employer] Lot # [id number] Lot# Expiration Date 2707,264 Blood Capillary blood specimen / Unknown 10/08/2024 4:11 PM EDT us Parul Alvarez ANP POINT OF CARE TEST ENTER/EDIT OR DERABLES Final Result * Hm Colonoscopy (05/24/2020) [facility] Colonoscopy Normal Normal [facility] Provider HEALTH MAINTENANCE Final Result * HEPATITIS C AB W/REFL TO HCV RNA, QN, PCR (01/09/2020 10:22 AM EST) [facility] HEPATITIS C ANTIBODY NON-REACT GIOVANNY NON-REACT [facility]NY [facility] INDEX 0.02 <1.00 [facility] Comment: HCV antibody was non-reactive. There is no laboratory evidence of HCV infection. In most cases, no further action is required. However, if recent HCV exposure is suspected, a test for HCV RNA (test code 22371) is suggested. For additional information please refer to http://education.SnowGate/faq/JID50y7 (This link is being provided for informational/ educational purposes only.) HEPATITIS C ANTIBODY NON-REACT GIOVANNY NON-REACT GIOVANNY [facility] INDEX 0.02 <1.00 [facility] Comment: HCV antibody was non-reactive. There is no laboratory evidence of HCV infection. In most cases, no further action is required. However, if recent HCV exposure is suspected, a test for HCV RNA (test code 92109) is suggested. For additional information please refer to http://WiDaPeople/faq/ANV67x4 (This link is being provided for informational/ educational purposes only.) HEPATITIS C ANTIBODY NON-REACT GIOVANNY NON-REACT GIOVANNY [facility] INDEX 0.02 <1.00 [facility] Comment: HCV antibody was non-reactive. There is no laboratory evidence of HCV infection. In most cases, no further action is required. However, if recent HCV exposure is suspected, a test for HCV RNA (test code 46819) is suggested. For additional information please refer to http://WiDaPeople/faq/BIR55g2 (This link is being provided for informational/ educational purposes only.) 01/09/2020 10:2 2 AM EST us Parul Alvarez ANP HISTORICAL/NON ORDERABLE LABS Fi nal Result [facility] [address] * HIV 1/2 ANTIGEN/ANTIBODY,FOURTH GENERATION W/RFL (01/09/2020 10:22 AM EST) HIV-1/2 ANTIGEN AND ANTIBODIES, 4TH GENERATION W/ REFLEX NON-REACT GIOVANNY NON-REACT GIOVANNY [facility] Comment: HIV-1 antigen and [...] purpose. For additional information please refer to http://WiDaPeople/faq/JIA495 (This link is being provided for informational/ [...] purpose. For additional information please refer to http://WiDaPeople/faq/ACI385 (This link is being provided for informational/ educational purposes only.) The performance of this assay has not been clinically validated in patients less than 2 years old. HIV-1/2 ANTIGEN AND ANTIBODIES, 4TH GENERATION W/ REFLEX NON-REACT GIOVANNY NON-REACT GIOVANNY [facility] Comment: HIV-1 antigen and HIV-1/HIV-2 [...] purpose. For additional information please refer to http://1.618 Technology.SnowGate/faq/VEZ075 (This link is being provided for informational/ educational purposes only.) The performance of this assay has not been clinically validated in patients less than 2 years old. 01/09/2020 10:[address] [facility] BLOOD ORDERABLES Final Resul t [facility] [address] [place] [address] from Last 3 Months or Most Recently Relevant to Health Maintenance Insurance [place] [employer] [facility] [facility] [employer] STAND ADULT Care Teams Train Operations Manager Relationship Specialty Start Date End Date Parul Alvarez ANP [address] [place] [address] PCP - General Family Medicine 12/24/19 Shira Mack RN [address] [place] [phone] Home Health Assistant Family Medicine 03/27/24
--- OUTSIDE RECORDS SUMMARY | 2024-12-24 08:44 | XMS_ITS | Encounter Summary ---
Author Organization [facility] Address [address] [place] [address] Care Team Providers Care Last Sawyer Name Role Phone Pcp, No Primary Care Provider Unavailabl e Encounter Details Date Type Department Care Team (Late st Contact Info) Description 05/25/2023 Scanned Document [facility] Urologic Surgery [place] [address] [facility] [address] [place] [address] Mariam Rankin [place] [address] No [facility] [address] [place] [address] Social History Tobacco Use Types Packs/Day Years [...] on filedocumented in this encounter Care Teams Last Sawyer Relationship Specialty Start Date End Date Pcp, No PCP - General General Medicine 05/24/23 documented as of this encounter
--- OUTSIDE RECORDS SUMMARY | 2024-12-24 08:44 | XMS_ITS | Clinical Summary ---
Author Organization [facility] Address [address] [place] [address] Care Team Providers Care Guest Laundry Attendant Name Role Phone [facility] Primary Care Provider [phone] Allergies No known active allergies Medications omeprazole (PriLOSEC) 20 mg capsule SMARTSI Capsule(s) By Mouth Every Morning 10/17/2024 Active Encounters Date Type Department Care Team Description 12/12/2024 Telephone [facility] [address] [place] [address] Sheet Metal Mechanic: Franco Monroe MD 11/13/2024 3:30 PM EDT Office Visit [facility] [place] [address] Sheet Metal Mechanic: Franco Monroe MD Prostate cancer (HCC) (Primary [...] 02/27/2024 Depression Screening and Follow-Up 02/27/2024 Social [employer] Annual Screening 02/27/2024 Influenza Vaccine (#1) 2024 DTaP,Tdap,and Td Vaccines (3 - Td or Tdap) 05/16/2027 05/15/2017, 06/04/2014 RSV Vaccine (60+ years old a nd patients) (1 - 1-dose 75+ series) 2035 HIV Screening Completed 01/09/2020 Zoster Vaccines Completed 01/06/2021, 11/04/2020 Hepatitis B Vaccines Aged Out No long er eligible based on patient's age to complete this topic [facility] Care Teams Guest Laundry Attendant Relationship Specialty Start Date End Date [facility] [address] [place] [address] PCP - General 07/29/24
--- OUTSIDE RECORDS SUMMARY | 2024-12-24 08:44 | XMS_ITS | Clinical Summary ---
Author Organization [facility] Address [address] [place] [address] Care Team Providers Care Tow Motor Mechanic Name Role Phone Pcp, No Primary Care [...] - 2023-2 5 season) 2024 RSV Vaccine 50 years and old er and Patients (1 - 1-dose 75+ series) 2035 Hepatitis B Vaccines Aged Out No long er eligible based on patient's age to complete this topic Care Teams Tow Motor Mechanic Relationship Specialty Start Date End Date PcpCheri PCP - General General Medicine 05/24/23
== END 2024-12-24 08:51 | disposition home or self-care (01) ==
LOC: HO.HGS 08:22
PROVIDERS: PCP Nurse Practitioner Primary Care; Visit Provider Surgery
DX: K64.8 Other hemorrhoids (principal)
CPT/HCPCS: 46600; 99203

== ENCOUNTER → 2024-12-24 08:21 | Outpatient (BNVA) | payer MEDICAID, SELFPAY | PROVIDERS: PCP Nurse Practitioner Primary Care; Visit Provider Surgery | DX: K64.9 Unspecified hemorrhoids (principal) | CPT/HCPCS: 46600; 99202 ==